=== PATIENT | male | born 1955 | race Caucasian/White ===

== ENCOUNTER → 2016-09-12 | Outpatient (CLI) | payer MEDICAID ==
--- NOTE | 2016-09-12 15:24 | RADIOLOGY REPORT (SQ) ---
EXAM DESCRIPTION: CHEST PA/LATERAL COMPLETED DATE/TIME: 09/12/2016 1:31 pm REASON FOR STUDY: COUGH R05 COUGH COMPARISON: 12/17/2015. NUMBER OF VIEWS: Two view. TECHNIQUE: Frontal and lateral radiographic views of the chest acquired. LIMITATIONS: None. FINDINGS: LUNGS AND PLEURA: Chronic pleural and parenchymal scarring. No opacities, masses or pneum othorax. No pleural effusion. Attenuated blood vessels and flattened iona-diaphragms. MEDIASTINUM AND HILAR STRUCTURES: No masses. No contour abnormalities. HEART AND VASCULAR STRUCTURES: Heart normal in size and contour. No evidence for failure. BONES: No acute findings. HARDWARE: None in the chest. OTHER: No other significant finding. IMPRESSION: COPD. CHRONIC SCARRING. NO ACUTE RADIOGRAPHIC FINDING IN THE CHEST. TECHNICAL DOCUMENTATION: JOB ID: [id number] [employer]- All Rights Reserved
== END ==
LOC: OD 13:11
PROVIDERS: ATTEND Physician Assistant
DX: R05 Cough (principal); J44.9 Chronic obstructive pulmonary disease, unspecified
CPT/HCPCS: 71020

== ENCOUNTER → 2016-10-12 | Outpatient (CLI) | payer MEDICAID ==
--- NOTE | 2016-10-12 12:01 | RADIOLOGY REPORT (SQ) ---
EXAM DESCRIPTION: CHEST PA/LATERAL COMPLETED DATE/TIME: 10/12/2016 11:37 am REASON FOR STUDY: PNEUMONIA, UNSPECIFIED ORGANISM COMPARISON: CT chest 07/15/2014, 06/05/2013, 01/13/2010, 05/21/2008, 03/28/2007, 11/09/2006 Chest films 12/17/2015, 09/12/2016 EXAM PARAMETERS: NUMBER OF VIEWS: two views TECHNIQUE: Digital Frontal and Lateral radiographic views of the chest acquired. RADIATION DOSE: NA LIMITATIONS: none FINDINGS: LUNGS AND PLEURA: Chronic bronchiectasis and scarring is present in the left superior segm ent lower lobe, similar compared to studies dating back to the CT chest in 2006. No acute infiltrates. No pleural effusion. No pneumothorax. MEDIASTINUM AND HILAR STRUCTURES: No masses or contour abnormalities. HEART AND VASCULAR STRUCTURES: Heart normal size. No evidence for failure. BONES: No acute findings. HARDWARE: None in the chest. OTHER: No other significant finding. IMPRESSION: Stable scarring and bronchiectasis in the superior segment left lower lobe compared to C T exams dating back to 2006 TECHNICAL DOCUMENTATION: JOB ID: [id number] [employer]- All Rights Reserved
== END ==
LOC: OD 11:19
PROVIDERS: ATTEND Physician Assistant
DX: J18.9 Pneumonia, unspecified organism (principal)
CPT/HCPCS: 71020

== ENCOUNTER 2016-10-21 19:12 | Inpatient (IN) | payer MEDICAID ==
[2016-10-21] MEDS ORDERED: NORMAL SALINE 1000 ML 1,000 ML IV PRN (20:17)
[2016-10-21 22:03] LABS: ABSOLUTE LYMPHOCYTES (AUTO) 1.8 10^3/uL (0.5-4.7); ABSOLUTE MONOCYTES (AUTO) 0.7 10^3/uL (0.1-1.4); ABSOLUTE NEUT (AUTO) 13.3 10^3/uL (1.7-8.2); BASOPHILS % (AUTO) 0.2 % (0-2); EOSINOPHILS % (AUTO) 0.1 % (0-6); HEMATOCRIT 33.8 % (37.9-51.0); HEMOGLOBIN 11.6 g/dL (13.5-17.0); LYMPHOCYTES % (AUTO) 11.6 % (13-45); MEAN CORPUSCULAR HEMOGLOBIN 31.5 pg (27.0-33.4); MEAN CORPUSCULAR HGB CONC 34.3 g/dL (32.0-36.0); MEAN CORPUSCULAR VOLUME 92 fl (80-97); MONOCYTES % (AUTO) 4.6 % (3-13); RED BLOOD COUNT 3.69 10^6/uL (4.35-5.55); RED CELL DISTRIBUTION WIDTH 13.7 % (11.5-14.0); SEGMENTED NEUTROPHILS % (AUTO) 83.5 % (42-78); WHITE BLOOD COUNT 15.9 10^3/uL (4.0-10.5)
[2016-10-21 22:22] LABS: ALANINE AMINOTRANSFERASE 33 U/L (21-72); ALKALINE PHOSPHATASE 94 U/L (38-126); ANION GAP 16 (5-19); ASPARTATE AMINO TRANSFERASE 34 U/L (17-59); BILIRUBIN,DIRECT 0.5 mg/dL (0.0-0.4); BILIRUBIN,TOTAL 0.8 mg/dL (0.2-1.3); BLOOD UREA NITROGEN 47 mg/dL (7-20); CARBON DIOXIDE 24 mmol/L (22-30); CHLORIDE 102 mmol/L (98-107); CREATINE KINASE 26 U/L (55-170); CREATININE RESULT 1.96 mg/dL (0.52-1.25); GLUCOSE 83 mg/dL (75-110); POTASSIUM 4.3 mmol/L (3.6-5.0); SODIUM 141.9 mmol/L (137-145)
[2016-10-21 22:37] LABS: CALCIUM 12.3 mg/dL (8.4-10.2)
[2016-10-21] MEDS ORDERED: NORMAL SALINE 1000 ML 1,000 ML IV ONE (22:39)
--- NOTE | 2016-10-21 22:43 | ER Document Report ---
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 Pollock, instructed him to go the emergency room because of elevated renal function and hypercalcemia. Patient says that he is not drinking much water over the past few days, but he is taking his normal amount of tube feeds through his G-tube. He denies fevers, nausea, vomiting, chest pain, shortness of breath, dysuria, hematuria, rash or headache. TRAVEL OUTSIDE OF THE [place] IN LAST 30 DAYS: No - Related Data Allergies/Adverse Reactions: Penicillins Allergy (Intermediate, Verified 10/21/16 19:21) Nausea and vomiting Sulfa (Sulfonamide Antibiotics) Allergy (Intermediate, Verified 10/21/16 19:21) upset stomach, vomiting Past Medical History - General Information source: Patient, Relative - Social History Smoking Status: Former Smoker Chew tobacco use (# tins/day): No Frequency of alcohol use: None Drug Abuse: None Family History: Reviewed & Not Pertinent - Past Medical History Cardiac Medical History: Reports: Hx Hypertension Denies: Hx Congestive Heart Failure Pulmonary Medical History: Reports: Hx Asthma, Hx Bronchitis, Hx COPD, Hx Pneumonia Endocrine Medical History: Denies: Hx Diabetes Mellitus Type 1, Hx Diabetes Mellitus Type 2 Renal/ Medical History: Denies: Hx Peritoneal Dialysis GI Medical History: Reports: Hx Cirrhosis - Alcoholic cirrhosis Musculoskeltal Medical History: Reports Hx Arthritis Past Surgical History: Reports: Hx Abdominal Surgery - peg tube placement - Immunizations Hx Diphtheria, Pertussis, Tetanus Vaccination: No - unsure Review of Systems - Review of Systems Notes: REVIEW OF SYSTEMS: CONSTITUTIONAL: -fevers, -chills EENT: -eye pain, -difficulty swallowing, -nasal congestion CARDIOVASCULAR:-chest pain, -syncope. RESPIRATORY: -cough, -SOB GASTROINTESTINAL: -abdominal pain, - nausea, -vomiting, -diarrhea GENITOURINARY: -dysuria, -hematuria MUSCULOSKELETAL: -back pain, -neck pain SKIN: -rash or skin lesions. HEMATOLOGIC: -easy bruising or bleeding. LYMPHATIC: -swollen, enlarged glands. NEUROLOGICAL: -altered mental status or loss of consciousness, -headache, - neurologic symptoms PSYCHIATRIC: -anxiety, -depression. ALL OTHER SYSTEMS REVIEWED AND NEGATIVE. Physical Exam - Vital signs Vitals: Temp Pulse Resp BP Pulse Ox 98.4 F 106 H 20 141/70 H 93 10/21/16 19:22 10/21/16 19:22 10/21/16 19:22 10/21/16 19:22 10/21/16 19:22 - Notes Notes: PHYSICAL EXAMINATION: GENERAL: Well-appearing, well-nourished and in no acute distress. HEAD: Atraumatic, normocephalic. EYES: Pupils equal round and reactive to light, extraocular movements intact, sclera anicteric, conjunctiva are normal. ENT: nares patent, oropharynx clear without exudates. Dry mucous membranes. NECK: Normal range of motion, supple without lymphadenopathy LUNGS: Breath sounds clear to auscultation bilaterally and equal. No wheezes rales or rhonchi. HEART: Regular rate and rhythm without murmurs ABDOMEN: Soft, nontender, normoactive bowel sounds. No guarding, no rebound. No masses appreciated. EXTREMITIES: Normal range of motion, no pitting or edema. No cyanosis. NEUROLOGICAL: Cranial nerves grossly intact. Normal speech, normal gait. Normal sensory and motor exams. PSYCH: Normal mood, normal affect. SKIN: Warm, Dry, normal turgor, no rashes or lesions noted. Course - Re-evaluation Re-evalutation: Patient with acute kidney injury and hypercalcemia. He also has a leukocytosis , but no fever and no signs of infection. Patient provided with IV fluids. 10/21/16 22:[address] Mckeon and will admit patient as inpatient to general medicine floor. - Vital Signs Vital signs: Temp Pulse Resp BP Pulse Ox 98.4 F 106 H 20 141/70 H 93 10/21/16 19:22 10/21/16 19:22 10/21/16 19:22 10/21/16 19:22 10/21/16 19:22 - Laboratory Result Diagrams: 10/21/16 21:33 10/21/16 21:33 Laboratory results interpreted by me: 10/21/16 10/21/16 21:33 21:33 WBC 15.9 H RBC 3.69 L Hgb 11.6 L Hct 33.8 L Seg Neutrophils % 83.5 H Lymphocytes % 11.6 L Absolute Neutrophils 13.3 H BUN 47 H Creatinine 1.96 H Est GFR ( Amer) 42 L Est GFR (Non-Af Amer) 35 L Calcium 12.3 H* Direct Bilirubin 0.5 H Creatine Kinase 26 L Discharge - Discharge Clinical Impression: JEAN (acute kidney injury), Hypercalcemia Leukocytosis Qualifiers: Leukocytosis type: unspecified Qualified Code(s): D72.829 - Elevated white blood cell count, unspecified Condition: Stable Disposition: ADMITTED INPATIENT Admitting Provider: [facility] Unit Admitted: Medical Floor
[2016-10-21 23:32] LABS: APPEARANCE,URINE CLEAR; BILIRUBIN,URINE NEGATIVE (NEGATIVE); GLUCOSE, URINE NEGATIVE (NEGATIVE); KETONES,URINE NEGATIVE (NEGATIVE); LEUKOCYTE ESTERASE,URINE NEGATIVE (NEGATIVE); NITRITE,URINE NEGATIVE (NEGATIVE); PROTEIN,URINE NEGATIVE (NEGATIVE); URINE SPECIFIC GRAVITY 1.009; UROBILINOGEN,URINE NEGATIVE mg/dL (<2.0)
[2016-10-22] MEDS ORDERED: NORMAL SALINE 1000 ML 1,000 ML IV PRN (04:15)
[2016-10-22 04:56] LABS: MAGNESIUM 1.8 mg/dL (1.6-2.3); PHOSPHORUS 2.9 mg/dL (2.5-4.5)
[2016-10-22 05:40] LABS: THYROID STIMULATING HORMONE 0.47 uIU/mL (0.47-4.68)
--- NOTE | 2016-10-22 06:48 | EKG REPORT ---
SEVERITY:- NORMAL ECG - SINUS RHYTHM : Confirmed by: Alvarado Rock MD 22-Oct-2016 06:47:55
--- NOTE | 2016-10-22 07:44 | RADIOLOGY REPORT (SQ) ---
EXAM DESCRIPTION: U/S RETROPERITON (RENAL/AORTA) COMPLETED DATE/TIME: 10/22/2016 7:16 am REASON FOR STUDY: ACUTE KIDNEY INJURY COMPARISON: CT abdomen and pelvis 12/18/2008. TECHNIQUE: Dynamic and static grayscale images acquired of the kidneys and bladder and recorded on P ACS. Additional selected color Doppler images recorded. LIMITATIONS: Overlying bowel gas and rib shadowing. FINDINGS: RIGHT KIDNEY: Measures 10.3 cm. Normal echogenicity. No no hydronephrosis. There is a 1.5 cm cyst at the interpolar region. LEFT KIDNEY: Suboptimal visualization due to overlying bowel gas and rib shadowing. Measures 11 cm. Normal echogenicity. No hydronephrosis. There is a 1.7 cm cyst at the interpolar region. BLADDER: There is outpouching at the urinary bladder. The right ureteral jet was visualized. IMPRESSION: No hydronephrosis. Outpouching at the urinary bladder, suggestive of a bladder diverticulum. Correlation with direct vi sualization recommended. TECHNICAL DOCUMENTATION: JOB ID: [id number]- All Rights Reserved
[2016-10-22 09:39] LABS: APPEARANCE,URINE CLEAR; BILIRUBIN,URINE NEGATIVE (NEGATIVE); GLUCOSE, URINE NEGATIVE (NEGATIVE); KETONES,URINE NEGATIVE (NEGATIVE); LEUKOCYTE ESTERASE,URINE NEGATIVE (NEGATIVE); NITRITE,URINE NEGATIVE (NEGATIVE); PROTEIN,URINE NEGATIVE (NEGATIVE); URINE SPECIFIC GRAVITY 1.005; UROBILINOGEN,URINE NEGATIVE mg/dL (<2.0)
[2016-10-22 09:55] LABS: URINE BARBITURATES SCREEN NEGATIVE; URINE METHADONE SCREEN NEGATIVE; URINE OPIATES LOW NEGATIVE; URINE PHENCYCLIDINE SCREEN NEGATIVE
[2016-10-22] MEDS ORDERED: ENOXAPARIN SODIUM INJ 40 MG/0.4 ML DISP.SYRIN SUBCUT SCH (10:00)
[2016-10-22] MEDS ORDERED: (PENDING PHARMACY ID) (Amitriptyline Hcl [Elavil 100 Mg Tablet] 100 MG) PO SCH (13:15)
[2016-10-22] MEDS ORDERED: OXYCODONE HCL IR 5 MG TABLET PO PRN (14:26)
--- NOTE | 2016-10-22 15:27 | PDOC H&P ---
History of Present Illness Admission Date/PCP: 10/22/16 04:16 PALOMO KNAPP MD History of Present Illness: LAWANDA RECIO is a 61 year old male, he has a history of ALS, he had outpatient blood work done by Dr. Knapp's office he was found to have hypercalcemia, he was referred to the emergency room from Dr. Knapp's office because of the hypercalcemia. In the emergency room he was evaluated the repeat blood work showed serum calcium of 12.3, serum creatinine 1.96. Patient has ALS with indwelling feeding tube is also dysphasic his speech is incomprehensible for the most part. Past Medical History Cardiac Medical History: Reports: Hypertension Pulmonary Medical History: Reports: Asthma, Bronchitis, Chronic Obstructive Pulmonary Disease (COPD), Pneumonia Neurological Medical History: Reports: Other - ALS, amyotrophic lateral sclerosis GI Medical History: Reports: Cirrhosis - Alcoholic cirrhosis Musculoskeltal Medical History: Reports: Arthritis Social History Smoking Status: Former Smoker - Advance Directive Resuscitation Status: Full Code Family History Family History: Reviewed & Not Pertinent Parental Family History Reviewed: Yes Children Family History Reviewed: Yes Sibling(s) Family History Reviewed.: Yes Medication/Allergy Home Medications: Albuterol Sulfate [Proair HFA] 2 inh IH Q6 12/10/12 Omeprazole [Prilosec 20 mg Capsule] 20 mg PO DAILY 12/10/12 Tiotropium [place] [Spiriva Handihaler 18 mcg/dose (30 Dose)] 1 cap IH DAILY Budesonide/Formoterol Fumarate [Symbicort HFA 160-4.5 mcg Inhaler 6 gm] 2 puff IH Q12 02/12/14 Levofloxacin [Levaquin 750 mg Tablet] 750 mg PO DAILY #10 tablet 09/03/14 Amitriptyline HCl [Elavil 100 mg Tablet] 100 mg PO QHS 10/22/16 Baclofen [Baclofen 10 mg Tablet] 5 mg PO Q12 10/22/16 Glycopyrrolate 1 mg PO Q8 10/22/16 Lisinopril 20 mg PO DAILY 10/22/16 Oxycodone HCl [Oxycodone HCl 10 MG Tablet] 10 mg PO Q6 PRN 10/22/16 Riluzole 50 mg PO Q12 10/22/16 Allergies/Adverse Reactions: Penicillins Allergy (Intermediate, Verified 10/21/16 19:21) Nausea and vomiting Sulfa (Sulfonamide Antibiotics) Allergy (Intermediate, Verified 10/21/16 19:21) upset stomach, vomiting Review of Systems ROS unobtainable: Other - Called to obtain review of system from this patient because of his BELT PICKER disease, he has expression dysphasia Physical Exam Vital Signs: Temp Pulse Resp BP Pulse Ox 97.3 F 61 15 135/51 H 98 10/22/16 11:40 10/22/16 14:00 10/22/16 11:40 10/22/16 11:40 10/22/16 11:40 Intake & Output 10/21/16 10/22/16 10/23/16 06:59 06:59 06:59 Intake Total 100 400 Output Total 0 700 Balance 100 -300 Weight 48 kg General appearance: PRESENT: mild distress Eye exam: PRESENT: PERRLA Respiratory exam: PRESENT: decreased breath sounds Cardiovascular exam: PRESENT: +S1, +S2 GI/Abdominal exam: PRESENT: firm Neurological exam: PRESENT: alert, other - He has a rigid tone of the musculature Results Laboratory Results: 10/22/16 10/22/16 10/22/16 04:35 04:35 08:55 Phosphorus 2.9 Magnesium 1.8 TSH 0.47 Free T4 0.95 Urine Color STRAW Urine Appearance CLEAR Urine pH 6.0 Ur Specific [place] 1.005 Urine Protein NEGATIVE Urine Glucose (UA) NEGATIVE Urine Ketones NEGATIVE Urine Blood NEGATIVE Urine Nitrite NEGATIVE Ur Leukocyte Esterase NEGATIVE Urine WBC (Auto) 2 Urine RBC (Auto) 1 10/22/16 10/22/16 10/22/16 04:35 04:35 10:49 Creatine Kinase 28 L 23 L CK-MB (CK-2) 1.40 10/22/16 10:49 Creatine Kinase CK-MB (CK-2) 1.70 Impressions: Renal Ultrasound 10/22/16 00:00 IMPRESSION: No hydronephrosis. Outpouching at the urinary bladder, suggestive of a bladder diverticulum. Correlation with direct visualization recommended. Assessment & Plan - Diagnosis (1) Hypercalcemia Is this a current diagnosis for this admission?: Yes Plan: He has hypercalcemia, serum PTH is ordered to determine if the hypercalcemia is PTH mediated. Will be treated with isotonic saline (2) Acute kidney injury Plan: I do not know the baseline serum creatinine for this patient but is seems that the acute kidney injury is most likely prerenal, a kidney ultrasound was done which showed normal echogenicity of both kidneys there was no hydronephrosis (3) Leukocytosis Qualifiers: Leukocytosis type: unspecified Qualified Code(s): D72.829 - Elevated white blood cell count, unspecified Is this a current diagnosis for this admission?: Yes Plan: He has increased white blood cell count there is no evidence of infection at this time will continue to monitor the white blood cell
[2016-10-22] MEDS ORDERED: ENOXAPARIN SODIUM INJ 30 MG/0.3 ML DISP.SYRIN SUBCUT ONE (15:30)
[2016-10-22] MEDS: ALBUTEROL SULFATE HFA (90 MCG/PUFF) 200 PUFF/8.5 GM MDI IH SCH ×2 (15:46→21:10)
[2016-10-22 16:42] LABS: ABSOLUTE LYMPHOCYTES (AUTO) 1.6 10^3/uL (0.5-4.7); ABSOLUTE MONOCYTES (AUTO) 0.4 10^3/uL (0.1-1.4); ABSOLUTE NEUT (AUTO) 6.6 10^3/uL (1.7-8.2); BASOPHILS % (AUTO) 0.4 % (0-2); EOSINOPHILS % (AUTO) 0.2 % (0-6); HEMATOCRIT 28.8 % (37.9-51.0); HEMOGLOBIN 9.7 g/dL (13.5-17.0); HGB HCT DIFFERENCE 0.3; LYMPHOCYTES % (AUTO) 18.8 % (13-45); MEAN CORPUSCULAR HEMOGLOBIN 30.8 pg (27.0-33.4); MEAN CORPUSCULAR HGB CONC 33.6 g/dL (32.0-36.0); MEAN CORPUSCULAR VOLUME 92 fl (80-97); MONOCYTES % (AUTO) 4.8 % (3-13); RED BLOOD COUNT 3.15 10^6/uL (4.35-5.55); RED CELL DISTRIBUTION WIDTH 13.6 % (11.5-14.0); SEGMENTED NEUTROPHILS % (AUTO) 75.8 % (42-78); WHITE BLOOD COUNT 8.7 10^3/uL (4.0-10.5)
[2016-10-22 17:08] LABS: ALANINE AMINOTRANSFERASE 30 U/L (21-72); ALBUMIN 3.2 g/dL (3.5-5.0); ALKALINE PHOSPHATASE 77 U/L (38-126); ANION GAP 12 (5-19); ASPARTATE AMINO TRANSFERASE 26 U/L (17-59); BILIRUBIN,DIRECT 0.6 mg/dL (0.0-0.4); BILIRUBIN,TOTAL 0.9 mg/dL (0.2-1.3); BLOOD UREA NITROGEN 36 mg/dL (7-20); CALCIUM 10.5 mg/dL (8.4-10.2); CARBON DIOXIDE 23 mmol/L (22-30); CHLORIDE 107 mmol/L (98-107); CREATININE RESULT 1.54 mg/dL (0.52-1.25); GLUCOSE 70 mg/dL (75-110); POTASSIUM 3.8 mmol/L (3.6-5.0); SODIUM 141.7 mmol/L (137-145); TOTAL PROTEIN 6.6 g/dL (6.3-8.2)
[2016-10-22] MEDS ORDERED: BACLOFEN 10 MG TABLET PO SCH (18:00)
[2016-10-22] MEDS ORDERED: GLYCOPYRROLATE 1 MG TABLET PO SCH (18:00)
[2016-10-22] MEDS ORDERED: AMITRIPTYLINE HCL 50 MG TABLET PO SCH (22:00)
[2016-10-22] MEDS ORDERED: RILUZOLE 50 MG PEG SCH (22:00)
[2016-10-22] MEDS: BUDESONIDE/FORMOTEROL 160-4.5 MCG 60 PUFF/6 GM MDI IH SCH (22:04)
[2016-10-23] MEDS: ALBUTEROL SULFATE HFA (90 MCG/PUFF) 200 PUFF/8.5 GM MDI IH SCH ×4 (03:39→22:12)
[2016-10-23 05:00] LABS: ABSOLUTE EOSINOPHILS # (AUTO) 0.1 10^3/uL (0.0-0.6); ABSOLUTE LYMPHOCYTES (AUTO) 1.8 10^3/uL (0.5-4.7); ABSOLUTE MONOCYTES (AUTO) 0.5 10^3/uL (0.1-1.4); ABSOLUTE NEUT (AUTO) 4.6 10^3/uL (1.7-8.2); BASOPHILS % (AUTO) 0.4 % (0-2); EOSINOPHILS % (AUTO) 0.9 % (0-6); HEMATOCRIT 26.7 % (37.9-51.0); HEMOGLOBIN 9.2 g/dL (13.5-17.0); HGB HCT DIFFERENCE 0.9; MEAN CORPUSCULAR HEMOGLOBIN 31.7 pg (27.0-33.4); MEAN CORPUSCULAR HGB CONC 34.5 g/dL (32.0-36.0); MEAN CORPUSCULAR VOLUME 92 fl (80-97); MONOCYTES % (AUTO) 6.8 % (3-13); RED BLOOD COUNT 2.91 10^6/uL (4.35-5.55); RED CELL DISTRIBUTION WIDTH 13.8 % (11.5-14.0); SEGMENTED NEUTROPHILS % (AUTO) 65.9 % (42-78); WHITE BLOOD COUNT 6.9 10^3/uL (4.0-10.5)
[2016-10-23 05:12] LABS: ALANINE AMINOTRANSFERASE 23 U/L (21-72); ALBUMIN 2.7 g/dL (3.5-5.0); ALKALINE PHOSPHATASE 68 U/L (38-126); ANION GAP 9 (5-19); ASPARTATE AMINO TRANSFERASE 23 U/L (17-59); BILIRUBIN,DIRECT 0.4 mg/dL (0.0-0.4); BILIRUBIN,TOTAL 0.5 mg/dL (0.2-1.3); BLOOD UREA NITROGEN 28 mg/dL (7-20); CALCIUM 10.5 mg/dL (8.4-10.2); CARBON DIOXIDE 26 mmol/L (22-30); CHLORIDE 108 mmol/L (98-107); CREATININE RESULT 1.45 mg/dL (0.52-1.25); GLUCOSE 138 mg/dL (75-110); POTASSIUM 3.2 mmol/L (3.6-5.0); SODIUM 142.7 mmol/L (137-145); TOTAL PROTEIN 5.7 g/dL (6.3-8.2)
[2016-10-23] MEDS ORDERED: LANSOPRAZOLE 15 MG TAB.RAP.DR PO ONE (06:45)
[2016-10-23] MEDS ORDERED: POTASSIUM CHLORIDE 10 MEQ TABLET.SA PO ONE (07:00)
[2016-10-23] MEDS ORDERED: POTASSIUM CHLORIDE 10 MEQ TABLET.SA PO SCH (07:00)
[2016-10-23] MEDS: TIOTROPIUM BROMIDE DPI 5 CAP/KIT (18 MCG/CAP) IH SCH (09:26)
[2016-10-23] MEDS: POTASSIUM CHLORIDE 20 MEQ/15 ML UDCUP PEG SCH (09:26)
[2016-10-23] MEDS: ENOXAPARIN SODIUM INJ 30 MG/0.3 ML DISP.SYRIN SUBCUT SCH (09:27)
[2016-10-23] MEDS: BUDESONIDE/FORMOTEROL 160-4.5 MCG 60 PUFF/6 GM MDI IH SCH ×2 (09:27→22:12)
[2016-10-23] MEDS ORDERED: (PENDING PHARMACY ID) (Omeprazole [Prilosec 20 Mg Capsule] 20 MG) PO SCH (10:00)
[2016-10-23] MEDS ORDERED: LISINOPRIL 10 MG TABLET PEG SCH (10:00)
[2016-10-23] MEDS ORDERED: LISINOPRIL 10 MG TABLET PO SCH (10:00)
[2016-10-23] MEDS ORDERED: (PENDING PHARMACY ID) (Lisinopril [Lisinopril] 20 MG) PO SCH (10:00)
[2016-10-23] MEDS: BACLOFEN 10 MG TABLET PEG SCH ×2 (11:54→17:08)
[2016-10-23] MEDS: GLYCOPYRROLATE 1 MG TABLET PEG SCH ×3 (11:54→17:08)
--- NOTE | 2016-10-23 15:41 | PDOC PROGRESS REPORT ---
Subjective Progress Note for:: 10/23/16 Subjective:: Patient was admitted yesterday because of severe hypercalcemia, the serum calcium from today's lab is 10.5 there was associated acute kidney injury. Presently on IV isotonic infusion the kidney function is improving. He has history of ALS on tube feeds. The acute kidney injury is most likely from inadequate hydration with volume contraction. The PTH level that was requested is pending this will help differentiate if the hypercalcemia is PTH mediated or not. Physical Exam Vital Signs: Temp Pulse Resp BP Pulse Ox 97.5 F 50 L 17 150/54 H 100 10/23/16 11:24 10/23/16 11:24 10/23/16 11:24 10/23/16 11:24 10/23/16 11:24 Intake & Output 10/22/16 10/23/16 10/24/16 06:59 06:59 06:59 Intake Total 100 4200 300 Output Total 0 1100 400 Balance 100 3100 -100 Weight 48 kg 48 kg General appearance: PRESENT: no acute distress Eye exam: PRESENT: PERRLA Respiratory exam: PRESENT: clear to auscultation sandip Cardiovascular exam: PRESENT: +S1, +S2 GI/Abdominal exam: PRESENT: soft Neurological exam: PRESENT: alert Results Laboratory Results: 10/23/16 03:41 10/23/16 03:41 10/22/16 10/22/16 10/23/16 16:10 16:10 03:41 WBC 8.7 6.9 RBC 3.15 L 2.91 L Hgb 9.7 L 9.2 L Hct 28.8 L 26.7 L MCV 92 92 MCH 30.8 31.7 MCHC 33.6 34.5 RDW 13.6 13.8 Plt Count 194 175 Seg Neutrophils % 75.8 65.9 Lymphocytes % 18.8 26.0 Monocytes % 4.8 6.8 Eosinophils % 0.2 0.9 Basophils % 0.4 0.4 Absolute Neutrophils 6.6 4.6 Absolute Lymphocytes 1.6 1.8 Absolute Monocytes 0.4 0.5 Absolute Eosinophils 0.0 0.1 Absolute Basophils 0.0 0.0 Sodium 141.7 Potassium 3.8 Chloride 107 Carbon Dioxide 23 Anion Gap 12 BUN 36 H Creatinine 1.54 H Est GFR ( Amer) 56 L Est GFR (Non-Af Amer) 46 L Glucose 70 L Calcium 10.5 H Total Bilirubin 0.9 AST 26 ALT 30 Alkaline Phosphatase 77 Total Protein 6.6 Albumin 3.2 L 10/23/16 03:41 WBC RBC Hgb Hct MCV MCH MCHC RDW Plt Count Seg Neutrophils % Lymphocytes % Monocytes % Eosinophils % Basophils % Absolute Neutrophils Absolute Lymphocytes Absolute Monocytes Absolute Eosinophils Absolute Basophils Sodium 142.7 Potassium 3.2 L Chloride 108 H Carbon Dioxide 26 Anion Gap 9 BUN 28 H Creatinine 1.45 H Est GFR ( Amer) > 60 Est GFR (Non-Af Amer) 50 L Glucose 138 H Calcium 10.5 H Total Bilirubin 0.5 AST 23 ALT 23 Alkaline Phosphatase 68 Total Protein 5.7 L Albumin 2.7 L 10/22/16 10/22/16 10/22/16 04:35 04:35 10:49 Creatine Kinase 28 L 23 L CK-MB (CK-2) 1.40 10/22/16 10/22/16 10/22/16 10:49 16:10 16:10 Creatine Kinase 30 L CK-MB (CK-2) 1.70 1.49 Impressions: Renal Ultrasound 10/22/16 00:00 IMPRESSION: No hydronephrosis. Outpouching at the urinary bladder, suggestive of a bladder diverticulum. Correlation with direct visualization recommended. Assessment & Plan - Diagnosis (1) Hypercalcemia Is this a current diagnosis for this admission?: Yes Plan: The calcium level is down to 10.5, we will continue present IV hydration (2) Acute kidney injury Plan: Acute kidney injury is improving suggesting that this is prerenal other than intrinsic kidney disease (3) Leukocytosis Qualifiers: Leukocytosis type: unspecified Qualified Code(s): D72.829 - Elevated white blood cell count, unspecified Is this a current diagnosis for this admission?: Yes Plan: The leukocytosis is resolved with hydration suggesting that this is probably due to dehydration and stress of dehydration
[2016-10-23] MEDS: LEVOFLOXACIN 750 MG TABLET PEG SCH (17:09)
[2016-10-23] MEDS ORDERED: LEVOFLOXACIN 750 MG TABLET PO SCH (18:00)
[2016-10-23] MEDS: AMITRIPTYLINE HCL 50 MG TABLET PEG SCH (22:11)
[2016-10-24] MEDS: ALBUTEROL SULFATE HFA (90 MCG/PUFF) 200 PUFF/8.5 GM MDI IH SCH ×4 (02:58→23:23)
[2016-10-24 05:06] LABS: ABSOLUTE EOSINOPHILS # (AUTO) 0.1 10^3/uL (0.0-0.6); ABSOLUTE LYMPHOCYTES (AUTO) 1.6 10^3/uL (0.5-4.7); ABSOLUTE MONOCYTES (AUTO) 0.5 10^3/uL (0.1-1.4); ABSOLUTE NEUT (AUTO) 5.4 10^3/uL (1.7-8.2); BASOPHILS % (AUTO) 0.2 % (0-2); EOSINOPHILS % (AUTO) 1.1 % (0-6); HEMATOCRIT 26.8 % (37.9-51.0); HEMOGLOBIN 9.1 g/dL (13.5-17.0); HGB HCT DIFFERENCE 0.5; LYMPHOCYTES % (AUTO) 20.7 % (13-45); MEAN CORPUSCULAR HEMOGLOBIN 31.2 pg (27.0-33.4); MEAN CORPUSCULAR VOLUME 92 fl (80-97); MONOCYTES % (AUTO) 6.9 % (3-13); RED BLOOD COUNT 2.92 10^6/uL (4.35-5.55); RED CELL DISTRIBUTION WIDTH 13.9 % (11.5-14.0); SEGMENTED NEUTROPHILS % (AUTO) 71.1 % (42-78); WHITE BLOOD COUNT 7.6 10^3/uL (4.0-10.5)
[2016-10-24] MEDS: LANSOPRAZOLE 15 MG TAB.RAP.DR PEG SCH (05:44)
[2016-10-24] MEDS ORDERED: LANSOPRAZOLE 15 MG TAB.RAP.DR PO SCH (06:00)
[2016-10-24 07:52] LABS: ANION GAP 9 (5-19); BLOOD UREA NITROGEN 16 mg/dL (7-20); CALCIUM 10.2 mg/dL (8.4-10.2); CARBON DIOXIDE 30 mmol/L (22-30); CHLORIDE 104 mmol/L (98-107); CREATININE RESULT 1.13 mg/dL (0.52-1.25); GLUCOSE 110 mg/dL (75-110); POTASSIUM 3.3 mmol/L (3.6-5.0); SODIUM 143.3 mmol/L (137-145)
[2016-10-24] MEDS: ENOXAPARIN SODIUM INJ 30 MG/0.3 ML DISP.SYRIN SUBCUT SCH (09:14)
[2016-10-24] MEDS: TIOTROPIUM BROMIDE DPI 5 CAP/KIT (18 MCG/CAP) IH SCH (09:14)
[2016-10-24] MEDS: POTASSIUM CHLORIDE 20 MEQ/15 ML UDCUP PEG SCH (09:14)
[2016-10-24] MEDS: BUDESONIDE/FORMOTEROL 160-4.5 MCG 60 PUFF/6 GM MDI IH SCH ×2 (09:14→23:24)
[2016-10-24] MEDS: GLYCOPYRROLATE 1 MG TABLET PEG SCH ×3 (09:14→17:49)
[2016-10-24] MEDS: BACLOFEN 10 MG TABLET PEG SCH ×2 (09:14→17:49)
[2016-10-24] MEDS ORDERED: NORMAL SALINE 1000 ML 1,000 ML IV PRN (09:42)
[2016-10-24] MEDS ORDERED: POTASSIUM CHLORIDE 20 MEQ/15 ML UDCUP PO SCH (10:00)
[2016-10-24] MEDS: OXYCODONE HCL IR 5 MG TABLET PEG PRN ×2 (10:25→17:49)
--- NOTE | 2016-10-24 11:08 | PDOC PROGRESS REPORT ---
Subjective Progress Note for:: 10/24/16 Subjective:: Patient is currently doing better. Patient was admitted because of the acute renal failure and hypercalcemia Patient also on tube feeding and history of ALS Since starting the IV fluid Patient's PTH is very low with suggest the patient have secondary hyperparathyroidism's is to rule out any underlying malignancy Physical Exam Vital Signs: Temp Pulse Resp BP Pulse Ox 98.9 F 55 L 17 155/61 H 99 10/24/16 08:07 10/24/16 08:07 10/24/16 08:07 10/24/16 08:07 10/24/16 08:07 Intake & Output 10/23/16 10/24/16 10/25/16 06:59 06:59 06:59 Intake Total 4200 3957 Output Total 1100 1900 Balance 3100 2057 Weight 48 kg 50.1 kg General appearance: PRESENT: no acute distress Head exam: PRESENT: atraumatic, normocephalic Eye exam: PRESENT: conjunctiva pink, EOMI, PERRLA. ABSENT: scleral icterus Ear exam: PRESENT: normal external ear exam Mouth exam: PRESENT: moist, tongue midline Neck exam: PRESENT: full ROM. ABSENT: carotid bruit, JVD, lymphadenopathy, thyromegaly Respiratory exam: PRESENT: clear to auscultation sandip Cardiovascular exam: PRESENT: RRR. ABSENT: diastolic murmur, rubs, systolic murmur Pulses: PRESENT: normal dorsalis pedis pul, +2 pedal pulses bilateral Vascular exam: PRESENT: normal capillary refill GI/Abdominal exam: PRESENT: normal bowel sounds, soft. ABSENT: distended, guarding, mass, organolmegaly, rebound, tenderness Additonal comments: peg tube is intact Rectal exam: PRESENT: deferred Neurological exam: PRESENT: alert, awake, oriented to person, oriented to place , oriented to time, oriented to situation, CN II-XII grossly intact. ABSENT: motor sensory deficit Psychiatric exam: PRESENT: appropriate affect, normal mood. ABSENT: homicidal ideation, suicidal ideation Skin exam: PRESENT: dry, intact, warm. ABSENT: cyanosis, rash Results Laboratory Results: 10/24/16 04:07 10/24/16 07:02 10/22/16 10/24/16 10/24/16 04:35 04:07 07:02 WBC 7.6 RBC 2.92 L Hgb 9.1 L Hct 26.8 L MCV 92 MCH 31.2 MCHC 34.0 RDW 13.9 Plt Count 195 Seg Neutrophils % 71.1 Lymphocytes % 20.7 Monocytes % 6.9 Eosinophils % 1.1 Basophils % 0.2 Absolute Neutrophils 5.4 Absolute Lymphocytes 1.6 Absolute Monocytes 0.5 Absolute Eosinophils 0.1 Absolute Basophils 0.0 Sodium 143.3 Potassium 3.3 L Chloride 104 Carbon Dioxide 30 Anion Gap 9 BUN 16 Creatinine 1.13 Est GFR ( Amer) > 60 Est GFR (Non-Af Amer) > 60 Glucose 110 Calcium 10.2 PTH Intact 10 L 10/22/16 10/22/16 10/22/16 04:35 04:35 10:49 Creatine Kinase 28 L 23 L CK-MB (CK-2) 1.40 10/22/16 10/22/16 10/22/16 10:49 16:10 16:10 Creatine Kinase 30 L CK-MB (CK-2) 1.70 1.49 Impressions: Renal Ultrasound 10/22/16 00:00 IMPRESSION: No hydronephrosis. Outpouching at the urinary bladder, suggestive of a bladder diverticulum. Correlation with direct visualization recommended. Assessment & Plan - Diagnosis (1) JEAN (acute kidney injury) Is this a current diagnosis for this admission?: Yes Plan: After IV fluid currently all resolved (2) Hypercalcemia Is this a current diagnosis for this admission?: Yes Plan: Patient's PTH is very low will rule out the other etiology we ordered the multiple myeloma workup ordered the CT of the abdomen pelvis and chest (3) Leukocytosis Qualifiers: Leukocytosis type: unspecified Qualified Code(s): D72.829 - Elevated white blood cell count, unspecified Is this a current diagnosis for this admission?: Yes Plan: Most likely underlying aspirations pneumonia will get the modified barium swallow for speech therapy evaluations and continues to [place] (4) ALS (amyotrophic lateral sclerosis) Is this a current diagnosis for this admission?: Yes Plan: Patient is currently see at [facility] (5) Failure to thrive Qualifiers: Failure to thrive age range: in adult Qualified Code(s): R62.7 - Adult failure to thrive Is this a current diagnosis for this admission?: Yes Plan: Consult dietary is to further adjustments for the tube feeding - Time Time Spent with patient: 15-24 minutes Medications reviewed and adjusted accordingly: Yes Anticipated discharge: Home Within: Other - Inpatient Certification Medical Necessity: Need For IV Fluids Post Hospital Care: D/C [employer] Documentation - Plan Summary Plan Summary: Continues current medications
--- NOTE | 2016-10-24 13:05 | RADIOLOGY REPORT (SQ) ---
EXAM DESCRIPTION: CT CHEST WITHOUT COMPLETED DATE/TIME: 10/24/2016 12:34 pm REASON FOR STUDY: Cough/ALS COMPARISON: 07/15/2014 TECHNIQUE: CT scan performed of the chest without intravenous contrast. Images reviewed with lung, soft tissue and bone windows. Reconstructed coronal and sagittal MPR images reviewed. All images st ored on PACS. All CT scanners at this facility use dose modulation, iterative reconstruction, and/or weight based d osing when appropriate to reduce radiation dose to as low as reasonably achievable (ALARA). [facility]: Dose Right [facility]: CareDose [facility]: Dose Right [facility]: Teradose 4D [facility]: Smart AxialMED RADIATION DOSE: Up-to-date CT equipment and radiation dose reduction techniques were employed. CTDIv ol: 4.5 - 4.7 mGy. DLP: 411 mGy-cm. mGy. LIMITATIONS: No technical limitations. FINDINGS: LUNGS AND PLEURA: Pleural/parenchymal scarring is seen in the apices and in the left base. There is subsegmental atelectasis in the left lower lobe. These changes are stable. There is mild centrilobular emphysematous change. There is opacification in the left upper lobe. HILAR AND MEDIASTINAL STRUCTURES: No identified masses or abnormal nodes. No obvious aneurysm. HEART AND VASCULAR STRUCTURES: No aneurysm. No pericardial effusion. UPPER ABDOMEN: No significant findings. Limited exam. THYROID AND OTHER SOFT TISSUES: No masses. No adenopathy. BONES: No significant finding. HARDWARE: None in the chest. OTHER: No other significant findings. IMPRESSION: 1. Left upper lobe pneumonia. 2. Pleural/parenchymal scarring in the lung apices and in the left lower lobe. Subsegmental atelect asis in the left lower lobe. These findings were stable. TECHNICAL DOCUMENTATION: JOB ID: [id number] Quality ID # [id number]: Final reports with documentation of one or more dose reduction techniques (e.g., Au tomated exposure control, adjustment of the mA and/or kV according to patient size, use of iterative reconstruction technique) 2010 [employer]- All Rights Reserved
--- NOTE | 2016-10-24 13:15 | RADIOLOGY REPORT (SQ) ---
EXAM DESCRIPTION: CT ABD/PELVIS NO ORAL OR IV COMPLETED DATE/TIME: 10/24/2016 12:34 pm REASON FOR STUDY: Cough/ALS/wt loss COMPARISON: None. TECHNIQUE: CT scan of the abdomen and pelvis performed without intravenous or oral contrast. Images reviewed with lung, soft tissue, and bone windows. Reconstructed coronal and sagittal MPR images revi ewed. All images stored on PACS. All CT scanners at this facility use dose modulation, iterative reconstruction, and/or weight based d osing when appropriate to reduce radiation dose to as low as reasonably achievable (ALARA). [facility]: Dose Right [facility]: CareDose [facility]: Dose Right [facility]: Teradose 4D [facility]: TabSys RADIATION DOSE: 411.3mGy. LIMITATIONS: None. FINDINGS: LOWER CHEST: See separate report of the CT of the chest. NON-CONTRASTED LIVER, SPLEEN, ADRENALS: Evaluation limited by lack of IV contrast. No identified sign ificant masses. PANCREAS: No masses. No peripancreatic inflammatory changes. GALLBLADDER: No identified stones by CT criteria. No inflammatory changes to suggest cholecystitis. RIGHT KIDNEY AND URETER: No suspicious masses. Assessment limited by lack of IV contrast. There are what appear to be scattered vascular calcifications. No ureteral stone or obstruction is seen. No hydronephrosis or hydroureter. LEFT KIDNEY AND URETER: No suspicious masses. Assessment limited by lack of IV contrast. Couple of vascular calcifications are present. There is no ureteral stone or obstruction. No hydronephrosis or hydroureter. AORTA AND RETROPERITONEUM: No aneurysm. Extensive atherosclerosis. There is atherosclerosis there i s prominent at the origin of the superior mesenteric artery and there is slightly less prominent athe rosclerosis at the origins of the renal arteries. BOWEL AND PERITONEAL CAVITY: No obvious masses or inflammatory changes. No free fluid. APPENDIX: Not identified. PELVIS, BLADDER, AND ABDOMINAL WALL:Urinary bladder is normal. Prostate gland and seminal vesicles a re normal. There is no free fluid. BONES: No significant findings. OTHER: No other significant finding. IMPRESSION: 1. Atherosclerosis including the aorta and renal arteries and the superior mesenteric a rtery in particular. 2. No abdominal or pelvic mass or other abnormality is appreciated. COMMENT: Quality ID # [id number]: Final reports with documentation of one or more dose reduction techniques (e.g., Automated exposure control, adjustment of the mA and/or kV according to patient size, use of iterative reconstruction technique) TECHNICAL DOCUMENTATION: JOB ID: [id number] [employer] [employer]- All Rights Reserved
[2016-10-24] MEDS: AMITRIPTYLINE HCL 50 MG TABLET PEG SCH (23:24)
[2016-10-25] MEDS: ALBUTEROL SULFATE HFA (90 MCG/PUFF) 200 PUFF/8.5 GM MDI IH SCH ×4 (04:11→20:36)
[2016-10-25 04:37] LABS: IMMUNOGLOBULIN A 684 mg/dL (90-386); IMMUNOGLOBULIN G 1355 mg/dL (700-1600)
[2016-10-25] MEDS: LANSOPRAZOLE 15 MG TAB.RAP.DR PEG SCH (06:08)
[2016-10-25 07:06] LABS: IMMUNOGLOBULIN M 114 mg/dL (20-172)
[2016-10-25 07:15] LABS: ABSOLUTE EOSINOPHILS # (AUTO) 0.1 10^3/uL (0.0-0.6); ABSOLUTE LYMPHOCYTES (AUTO) 1.9 10^3/uL (0.5-4.7); ABSOLUTE MONOCYTES (AUTO) 0.7 10^3/uL (0.1-1.4); BASOPHILS % (AUTO) 0.3 % (0-2); EOSINOPHILS % (AUTO) 1.9 % (0-6); HEMATOCRIT 26.5 % (37.9-51.0); HEMOGLOBIN 9.3 g/dL (13.5-17.0); HGB HCT DIFFERENCE 1.4; LYMPHOCYTES % (AUTO) 27.9 % (13-45); MEAN CORPUSCULAR HGB CONC 35.2 g/dL (32.0-36.0); MEAN CORPUSCULAR VOLUME 91 fl (80-97); MONOCYTES % (AUTO) 10.4 % (3-13); RED BLOOD COUNT 2.92 10^6/uL (4.35-5.55); RED CELL DISTRIBUTION WIDTH 13.9 % (11.5-14.0); SEGMENTED NEUTROPHILS % (AUTO) 59.5 % (42-78); WHITE BLOOD COUNT 6.7 10^3/uL (4.0-10.5)
--- NOTE | 2016-10-25 09:09 | PDOC PROGRESS REPORT ---
Subjective Progress Note for:: 10/25/16 Subjective:: Patient is currently doing fair. Patient's CT of the chest shows the left lower lobe pneumonia and CT abdomen and pelvis was all stable Otherwise patient's denied any other symptoms Physical Exam Vital Signs: Temp Pulse Resp BP Pulse Ox 98.1 F 65 17 151/65 H 100 10/25/16 07:19 10/25/16 07:19 10/25/16 07:19 10/25/16 07:19 10/25/16 07:19 Intake & Output 10/24/16 10/25/16 10/26/16 06:59 06:59 06:59 Intake Total 3957 2966 65 Output Total 1900 2150 Balance 2057 816 65 Weight 50.1 kg 50.1 kg General appearance: PRESENT: no acute distress, well-developed, well-nourished Head exam: PRESENT: atraumatic, normocephalic Eye exam: PRESENT: conjunctiva pink, EOMI, PERRLA. ABSENT: scleral icterus Ear exam: PRESENT: normal external ear exam Mouth exam: PRESENT: moist, tongue midline Neck exam: PRESENT: full ROM. ABSENT: carotid bruit, JVD, lymphadenopathy, thyromegaly Respiratory exam: PRESENT: clear to auscultation sandip Cardiovascular exam: PRESENT: RRR. ABSENT: diastolic murmur, rubs, systolic murmur Pulses: PRESENT: normal dorsalis pedis pul, +2 pedal pulses bilateral Vascular exam: PRESENT: normal capillary refill GI/Abdominal exam: PRESENT: normal bowel sounds, soft. ABSENT: distended, guarding, mass, organolmegaly, rebound, tenderness Rectal exam: PRESENT: deferred Neurological exam: PRESENT: alert, awake, oriented to person, oriented to place , oriented to time, oriented to situation, CN II-XII grossly intact. ABSENT: motor sensory deficit Psychiatric exam: PRESENT: appropriate affect, normal mood. ABSENT: homicidal ideation, suicidal ideation Skin exam: PRESENT: dry, intact, warm. ABSENT: cyanosis, rash Results Laboratory Results: 10/25/16 06:37 10/24/16 07:02 10/25/16 06:37 WBC 6.7 RBC 2.92 L Hgb 9.3 L Hct 26.5 L MCV 91 MCH 32.0 MCHC 35.2 RDW 13.9 Plt Count 196 Seg Neutrophils % 59.5 Lymphocytes % 27.9 Monocytes % 10.4 Eosinophils % 1.9 Basophils % 0.3 Absolute Neutrophils 4.0 Absolute Lymphocytes 1.9 Absolute Monocytes 0.7 Absolute Eosinophils 0.1 Absolute Basophils 0.0 10/22/16 10/22/16 10/22/16 04:35 04:35 10:49 Creatine Kinase 28 L 23 L CK-MB (CK-2) 1.40 10/22/16 10/22/16 10/22/16 10:49 16:10 16:10 Creatine Kinase 30 L CK-MB (CK-2) 1.70 1.49 Impressions: Renal Ultrasound 10/22/16 00:00 IMPRESSION: No hydronephrosis. Outpouching at the urinary bladder, suggestive of a bladder diverticulum. Correlation with direct visualization recommended. Abdomen/Pelvis CT 10/24/16 00:00 IMPRESSION: 1. Atherosclerosis including the aorta and renal arteries and the superior mesenteric artery in particular. 2. No abdominal or pelvic mass or other abnormality is appreciated. Chest CT 10/24/16 00:00 IMPRESSION: 1. Left upper lobe pneumonia. 2. Pleural/parenchymal scarring in the lung apices and in the left lower lobe. Subsegmental atelectasis in the left lower lobe. These findings were stable. Assessment & Plan - Diagnosis (1) JEAN (acute kidney injury) Is this a current diagnosis for this admission?: Yes Plan: Currently all resolved (2) Hypercalcemia Is this a current diagnosis for this admission?: Yes Plan: Currently all resolved with waiting for the other tastings (3) Leukocytosis Qualifiers: Leukocytosis type: unspecified Qualified Code(s): D72.829 - Elevated white blood cell count, unspecified Is this a current diagnosis for this admission?: Yes Plan: From the pneumonia (4) ALS (amyotrophic lateral sclerosis) Is this a current diagnosis for this admission?: Yes Plan: Patient is currently see at [place] [facility] (5) Failure to thrive Qualifiers: Failure to thrive age range: in adult Qualified Code(s): R62.7 - Adult failure to thrive Is this a current diagnosis for this admission?: Yes Plan: Consult dietary is to further adjustments for the tube feeding (6) Pneumonia Qualifiers: Pneumonia type: aspiration pneumonia Laterality: left Is this a current diagnosis for this admission?: Yes Plan: Continues to LevaquinPatient scheduled for modified barium swallow today - Time Time Spent with patient: 15-24 minutes Medications reviewed and adjusted accordingly: Yes Anticipated discharge: Home Within: within 24 hours - Inpatient Certification Medical Necessity: Need Close Monitoring Due to Risk of Patient Decompensation Post Hospital Care: D/C Dairy Farm Manager Documentation - Plan Summary Plan Summary: Discussed with the patient and the caregiver about the patient's current conditionsWe will wait for the dietary consult. Just the tube feeding
[2016-10-25] MEDS: OXYCODONE HCL IR 5 MG TABLET PEG PRN ×2 (09:39→17:58)
[2016-10-25] MEDS: POTASSIUM CHLORIDE 20 MEQ/15 ML UDCUP PEG SCH (09:40)
[2016-10-25] MEDS: GLYCOPYRROLATE 1 MG TABLET PEG SCH ×3 (09:40→17:58)
[2016-10-25] MEDS: BUDESONIDE/FORMOTEROL 160-4.5 MCG 60 PUFF/6 GM MDI IH SCH ×2 (09:41→23:22)
[2016-10-25] MEDS: TIOTROPIUM BROMIDE DPI 5 CAP/KIT (18 MCG/CAP) IH SCH (09:41)
[2016-10-25] MEDS: ENOXAPARIN SODIUM INJ 30 MG/0.3 ML DISP.SYRIN SUBCUT SCH (09:42)
[2016-10-25] MEDS: BACLOFEN 10 MG TABLET PEG SCH ×2 (09:52→17:58)
--- NOTE | 2016-10-25 14:03 | ST Inp Modified Barium Swallow ---
Medical Diagnosis - Medical Diagnoses Medical Diagnosis Description & ICD-10 Code(s): Dysphagia, R13.10 ST [place] [facility] [place] General Date: 10/25/16 - History History Obtained From: Other - EMR -: Medical Medications: Medications Reviewed Allergies: Refer to medical record - Subjective Current Nutritional Means: PEG, PO - liquids only Current Symptoms: Pneumonia Pain: 0/5 - Objective Assessment: Upright, Left Lateral - Food Trials Food Trials Used: Thin liquids, Honey-thickened liquids, Pureed The Patient: fed by ST - Assessment Labial Function: Impaired - Poor ability to seal lips around spoon Dentition: Dentures-Upper Velo-Pharyngeal Function: Unremarkable Laryngeal Function: Weak Cough - Pharyngeal Stage Initiation of Pharyngeal Stage: Delayed Reflex Delay Time (seconds): 3 Reduced Pressure Generation: Yes Pre-Swallowing Pooling in Valleculae: Moderate - for all trials Pre-Swallowing Pooling in Pyriforms: Mild - for all textures Reduced Pharyngeal Peristalsis: Yes Multiple Swallows With: Ineffective Clearance Post Swallow Residuals in Valleculae: Moderate Post Swallow Residuals in Pyriforms: Moderate Post Swallow Residuals: throughout pharynx Pahryngeal Stage Comments: Patient demonstrated significant residue in valleculae and pyriform sinus for all PO trials this day. Residue was seen to enter laryngeal vestibule after the swallow. - Impression/Summary Laryngeal Penetration: Yes, Silent, after swallow Tracheal Aspiration: yes, delayed cough, after swallow Productive Cough: No Effective Clearing: partial clearing Ineffective Compensatory Strategies: hard swallow Patient Presents With: Oral stage dysphagia, Pharyngeal stage dysph., Severe Risk of Aspiration: Severe - Recommendations NPO: yes, free water Strict Aspitarion Precautions: Yes Dysphagia Therapy with AIRCRAFT MAINTENANCE ENGINEER: No Other Recommendations: Discussed recommendations of ice chips and water only by mouth with patient and family member. Did also discuss risk of pleasure feeds and nature of aspiration pneumonia with patient and family. - Time Total Time: 20 Total Timed Minutes: 20
[2016-10-25 15:38] LABS: FREE KAPPA LIGHT CHAINS 53.9 mg/L (3.3-19.4); FREE LAMBDA LIGHT CHAINS 50.9 mg/L (5.7-26.3)
[2016-10-25 15:53] LABS: KAPPA LAMBDA RATIO 1.06 (0.26-1.65)
[2016-10-25] MEDS: LEVOFLOXACIN 750 MG TABLET PEG SCH (17:58)
[2016-10-25] MEDS: AMITRIPTYLINE HCL 50 MG TABLET PEG SCH (23:22)
[2016-10-26] MEDS: OXYCODONE HCL IR 5 MG TABLET PEG PRN ×2 (00:40→11:35)
[2016-10-26] MEDS: ALBUTEROL SULFATE HFA (90 MCG/PUFF) 200 PUFF/8.5 GM MDI IH SCH ×3 (03:25→14:10)
[2016-10-26] MEDS: LANSOPRAZOLE 15 MG TAB.RAP.DR PEG SCH (06:23)
[2016-10-26 07:14] LABS: ANION GAP 10 (5-19); BLOOD UREA NITROGEN 17 mg/dL (7-20); CALCIUM 10.5 mg/dL (8.4-10.2); CARBON DIOXIDE 30 mmol/L (22-30); CHLORIDE 99 mmol/L (98-107); CREATININE RESULT 1.27 mg/dL (0.52-1.25); GLUCOSE 125 mg/dL (75-110); POTASSIUM 4.2 mmol/L (3.6-5.0); SODIUM 139.1 mmol/L (137-145)
--- NOTE | 2016-10-26 10:36 | PDOC DISCHARGE SUMMARY ---
General - Admit/Disc Date/PCP Admission Date/Primary Care Provider: 10/22/16 04:16 PALOMO KNAPP MD Discharge Date: 10/26/16 - Discharge Diagnosis (1) JEAN (acute kidney injury) Is this a current diagnosis for this admission?: Yes Summary: Due to the most likely a dehydration currently all stable (2) Hypercalcemia Is this a current diagnosis for this admission?: Yes Summary: Most likely due to the underlying dehydration and acute renal failure All of the skeletal survey to rule out multiple myeloma (3) Leukocytosis Is this a current diagnosis for this admission?: Yes Summary: Due to the pneumonia (4) ALS (amyotrophic lateral sclerosis) Is this a current diagnosis for this admission?: Yes Summary: Patient is currently follow with the [place] [facility] (5) Failure to thrive Is this a current diagnosis for this admission?: Yes Summary: Adjust the tube feeding per dietitian's discussed with the patient and the family (6) Pneumonia Is this a current diagnosis for this admission?: Yes Summary: Continues to Levaquin 500 mg daily for 7 days - Additional Information Resuscitation Status: Full Code Discharge Diet: Tube Feeding (Comments) Discharge Activity: Activity As Tolerated Home Medications: Albuterol Sulfate [Proair HFA] 2 inh IH Q6 12/10/12 Omeprazole [Prilosec 20 mg Capsule] 20 mg PO DAILY 12/10/12 Tiotropium [place] [Spiriva Handihaler 18 mcg/dose (30 Dose)] 1 cap IH DAILY Budesonide/Formoterol Fumarate [Symbicort HFA 160-4.5 mcg Inhaler 6 gm] 2 puff IH Q12 02/12/14 Amitriptyline HCl [Elavil 100 mg Tablet] 100 mg PO QHS 10/22/16 Baclofen [Baclofen 10 mg Tablet] 5 mg PO Q12 10/22/16 Glycopyrrolate 1 mg PO Q8 10/22/16 Oxycodone HCl [Oxycodone HCl 10 MG Tablet] 10 mg PO Q6 PRN 10/22/16 Riluzole 50 mg PO Q12 10/22/16 Levofloxacin [Levaquin 500 mg Tablet] 500 mg PO DAILY #7 tablet 10/26/16 History of Present Illness History of Present Illness: LAWANDA RECIO is a 61 year old male Is a 61-year-old male admitted because of the hypercalcemia and acute renal failure and pneumonia due to the ongoing dehydration is an ongoing ALS problem Hospital Course Hospital Course: Is a 61-year-old male with a significant history of the ALS currently see a [facility] for that with ongoing tube feeding have a blood work done in the office with a calcium was 12.3 and patient's creatinine was 2.2 And sent to the emergency department and admitting to the hospital and started on IV fluid Patient's PTH was low to rule out any other underlying malignancy with CT abdomen and pelvis was done was negative for any acute finding CT of the chest was done with so some pneumoniaMost likely aspirations Patient's kidney function is all getting better and calcium level Back to the baseline Patient have multiple myeloma workup was done which is still pending result follow outpatient Patient was consulted by the dietitian and adjust the tube feeding per calorie count and dehydration's Very extensive discussed with the patient and the caregiver regarding the patient's current conditions changing the tube feeding Since lisinopril was stopped Follow in outpatient center 1 week will recheck the CBC and Chem-7 Overall prognosis is poor due to the ongoing ALS Physical Exam Vital Signs: Temp Pulse Resp BP Pulse Ox 97.7 F 78 16 92/45 L 97 10/26/16 08:40 10/26/16 08:40 10/26/16 08:40 10/26/16 08:40 10/26/16 08:40 Intake & Output 10/25/16 10/26/16 10/27/16 06:59 06:59 06:59 Intake Total 2966 1666 Output Total 2150 1300 Balance 816 366 Weight 50.1 kg 50.1 kg General appearance: PRESENT: no acute distress, well-developed, well-nourished Head exam: PRESENT: atraumatic, normocephalic Eye exam: PRESENT: conjunctiva pink, EOMI, PERRLA. ABSENT: scleral icterus Ear exam: PRESENT: normal external ear exam Mouth exam: PRESENT: moist, tongue midline Neck exam: PRESENT: full ROM. ABSENT: carotid bruit, JVD, lymphadenopathy, thyromegaly Respiratory exam: PRESENT: clear to auscultation sandip Cardiovascular exam: PRESENT: RRR. ABSENT: diastolic murmur, rubs, systolic murmur Pulses: PRESENT: normal dorsalis pedis pul, +2 pedal pulses bilateral Vascular exam: PRESENT: normal capillary refill GI/Abdominal exam: PRESENT: normal bowel sounds, soft. ABSENT: distended, guarding, mass, organolmegaly, rebound, tenderness Rectal exam: PRESENT: deferred Neurological exam: PRESENT: alert, awake, oriented to person, oriented to place , oriented to time, oriented to situation, CN II-XII grossly intact. ABSENT: motor sensory deficit Psychiatric exam: PRESENT: appropriate affect, normal mood. ABSENT: homicidal ideation, suicidal ideation Skin exam: PRESENT: dry, intact, warm. ABSENT: cyanosis, rash Results Laboratory Results: 10/25/16 06:37 10/26/16 06:46 10/26/16 06:46 Sodium 139.1 Potassium 4.2 Chloride 99 Carbon Dioxide 30 Anion Gap 10 BUN 17 Creatinine 1.27 H Est GFR ( Amer) > 60 Est GFR (Non-Af Amer) 58 L Glucose 125 H Calcium 10.5 H 10/22/16 10/22/16 10/22/16 04:35 04:35 10:49 Creatine Kinase 28 L 23 L CK-MB (CK-2) 1.40 10/22/16 10/22/16 10/22/16 10:49 16:10 16:10 Creatine Kinase 30 L CK-MB (CK-2) 1.70 1.49 Impressions: Renal Ultrasound 10/22/16 00:00 IMPRESSION: No hydronephrosis. Outpouching at the urinary bladder, suggestive of a bladder diverticulum. Correlation with direct visualization recommended. Abdomen/Pelvis CT 10/24/16 00:00 IMPRESSION: 1. Atherosclerosis including the aorta and renal arteries and the superior mesenteric artery in particular. 2. No abdominal or pelvic mass or other abnormality is appreciated. Chest CT 10/24/16 00:00 IMPRESSION: 1. Left upper lobe pneumonia. 2. Pleural/parenchymal scarring in the lung apices and in the left lower lobe. Subsegmental atelectasis in the left lower lobe. These findings were stable. Plan Time Spent: Greater than 30 Minutes - Discharge home with the home health and adjust the tube feedingAnd aspirations precautionsAnd nothing by the mouth except some liquid Check a CBC and Chem-7 in 1 week
--- NOTE | 2016-10-26 10:52 | RADIOLOGY REPORT (SQ) ---
EXAM DESCRIPTION: BONE SURVEY COMPLETE COMPLETED DATE/TIME: 10/26/2016 10:30 am REASON FOR STUDY: hypercalciumia COMPARISON: CT chest abdomen pelvis 10/24/2016 Bilateral renal ultrasound 10/22/2016 TECHNIQUE: Images of the axial and proximal appendicular skeleton are obtained, along with lateral s kull and frontal chest films. LIMITATIONS: None. FINDINGS: AP CHEST: Chronic volume loss and bronchiectasis superior segment left lower lobe. No acute infiltrates. No pleural effusion. No pneumothorax. No cardiomegaly. LATERAL SKULL: No worrisome bone lesions. AP BOTH HUMERI: No worrisome bone lesions. TWO-VIEW LUMBAR SPINE: No worrisome bone lesions. TWO-VIEW THORACIC SPINE: No worrisome bone lesions. AP PELVIS: No worrisome bone lesions. AP BOTH FEMURS: No worrisome bone lesions. OTHER: Overall, there is diffuse osteopenia. Calcified carotid bifurcations. Left upper quadrant ga strostomy tube. IMPRESSION: NO WORRISOME BONE LESIONS. TECHNICAL DOCUMENTATION: JOB ID: [id number] [employer]- All Rights Reserved
[2016-10-26] MEDS: ENOXAPARIN SODIUM INJ 30 MG/0.3 ML DISP.SYRIN SUBCUT SCH (10:57)
[2016-10-26] MEDS: GLYCOPYRROLATE 1 MG TABLET PEG SCH ×2 (10:57→14:10)
[2016-10-26] MEDS: POTASSIUM CHLORIDE 20 MEQ/15 ML UDCUP PEG SCH (10:57)
[2016-10-26] MEDS: BACLOFEN 10 MG TABLET PEG SCH (10:57)
[2016-10-26] MEDS: TIOTROPIUM BROMIDE DPI 5 CAP/KIT (18 MCG/CAP) IH SCH (10:58)
[2016-10-26] MEDS: BUDESONIDE/FORMOTEROL 160-4.5 MCG 60 PUFF/6 GM MDI IH SCH (10:58)
[2016-10-26 11:55] VITALS: BP 125/51
[2016-10-26 13:38] LABS: ALBUMIN 3 2.8 g/dL (2.9-4.4); ALPHA-1-GLOBULIN 0.3 g/dL (0.0-0.4); ALPHA-2-GLOBULIN 3 0.7 g/dL (0.4-1.0); BETA GLOBULIN 1.1 g/dL (0.7-1.3); GLOBULIN TTL 3.3 g/dL (2.2-3.9); IMMUNOGLOBULIN A 631 mg/dL (90-386); IMMUNOGLOBULIN G 1142 mg/dL (700-1600); IMMUNOGLOBULIN M 110 mg/dL (20-172); MONOCLONAL-SPIKE Not Observed g/dL (Not Observed); PROTEIN TOTAL SERUM 6.1 g/dL (6.0-8.5)
--- NOTE | 2016-10-26 17:07 | RADIOLOGY REPORT (SQ) ---
EXAM DESCRIPTION: COOKIE SWALLOW COMPLETED DATE/TIME: 10/25/2016 8:46 am REASON FOR STUDY: dysphagia unspecified R 13.10 food in pharynx causing other injury, sequela T1 7.2 28 S COMPARISON: Cookie swallow 07/16/2013 TECHNIQUE: Videofluoroscopic swallowing examination was performed in conjunction with speech patholo gy. Videofluoroscopic imaging was obtained and reviewed and these are the findings: RADIATION DOSE: Total fluoroscopy time: 1 minutes 46 seconds 1 fluoroscopy image saved to PACS. LIMITATIONS: None FINDINGS: The patient was brought into the fluoro room and placed upright on a modified barium swall ow chair. The patient was then given purees, thin, and honey thick consistencies mixed with barium t o swallow under live fluoroscopic video guidance. According to the Speech Pathologist there was inessa ngeal penetration and tracheal aspiration with thin and honey thick consistencies. Delayed and weak swallowing mechanism is noted. Mild to moderate post swallow residual is noted within the vallecula and piriform sinuses and laryngeal penetration and tracheal aspiration is noted with these residuals. Please see speech pathology report for further details and recommendations. IMPRESSION: LARYNGEAL PENETRATION AND TRACHEAL ASPIRATION WITH THIN AND HONEY CONSISTENCIES. DELAYE D AND WEAK SWALLOWING MECHANISM ABOVE.PLEASE SEE SPEECH PATHOLOGIST REPORT FOR OTHER FINDINGS AND RECOMMENDATIONS. COMMENT: Quality ID [id number]: Final reports for procedures using fluoroscopy that document radiation exp osure indices, or exposure time and number of fluorographic images (if radiation exposure indices are not available) TECHNICAL DOCUMENTATION: JOB ID: [id number] [employer]- All Rights Reserved
== END 2016-10-26 14:45 | disposition home health service (06) | DRG 682 ==
LOC: ER 19:12 → EH 23:11 → UNDOADMIN 23:11 → EH 10-22 01:55 → 5 10-22 01:55 → EH 10-22 04:16 → 5 10-22 04:16
PROVIDERS: ADMIT Internal Medicine; ATTEND Family Medicine
DX: N17.9 Acute kidney failure, unspecified (principal); J69.0 Pneumonitis due to inhalation of food and vomit; G12.21 Amyotrophic lateral sclerosis; E86.0 Dehydration; E83.52 Hypercalcemia; R62.7 Adult failure to thrive; I10 Essential (primary) hypertension; J44.9 Chronic obstructive pulmonary disease, unspecified; K70.30 Alcoholic cirrhosis of liver without ascites; M19.90 Unspecified osteoarthritis, unspecified site; Z87.891 Personal history of nicotine dependence; Z79.899 Other long term (current) drug therapy; Z88.0 Allergy status to penicillin; Z88.2 Allergy status to sulfonamides
CPT/HCPCS: 36415; 71250; 74176; 74230; 76770; 77075; 80048; 80053; 80307; 81001; 82550; 82553; 82784; 83036; 83735; 83883; 83970; 84100; 84439; 84443; 85025; 86320; 93005; 93010; 99285; G8996-GN; G8997-GN; G8998-GN; J1650; J3490; J7030

== ENCOUNTER → 2017-06-15 | Outpatient (CLI) | payer MEDICAID ==
--- NOTE | 2017-06-15 15:11 | RADIOLOGY REPORT (SQ) ---
EXAM DESCRIPTION: CT CHEST WITHOUT COMPLETED DATE/TIME: 06/15/2017 1:42 pm REASON FOR STUDY: R91.8 OTHER NONSPECIFIC ABNORMAL FINDING OF LUNG FIELD R91.8 OTHER NONSPECIFIC AB NORMAL FINDING OF LUNG FIELD COMPARISON: Chest CT exams 04/11/2006, 01/13/2010, 06/05/2013, 07/15/2014, 10/24/2016 TECHNIQUE: CT scan performed of the chest without intravenous contrast. Images reviewed with lung, soft tissue and bone windows. Reconstructed coronal and sagittal MPR images reviewed. All images st ored on PACS. All CT scanners at this facility use dose modulation, iterative reconstruction, and/or weight based d osing when appropriate to reduce radiation dose to as low as reasonably achievable (ALARA). [facility]: Dose Right [facility]: CareDose [facility]: Dose Right [facility]: Teradose 4D [facility]: [employer] RADIATION DOSE: CT Rad equipment meets quality standard of care and radiation dose reduction techniq ues were employed. CTDIvol: 4.8 mGy. DLP: 177 mGy-cm. mGy. LIMITATIONS: No technical limitations. FINDINGS: LUNGS AND PLEURA: Chronic volume loss and bronchiectasis in the left lower lobe is present unchanged from 2006. Infiltrates in the left upper lobe seen 10/24/2016 have resolved. On today's exam, there is a 5 mm alveolar nodule is present in the right lower lobe axial image 75. Follow-up as per Fleischner criteria. No pleural effusions. No pneumothorax. HILAR AND MEDIASTINAL STRUCTURES: No identified masses or abnormal nodes. No obvious aneurysm. HEART AND VASCULAR STRUCTURES: No aneurysm. No pericardial effusion. Atherosclerotic arterial vascu lar calcification left proximal subclavian artery axial image 16. Atherosclerotic thoracic aortic ca lcification without aneurysm. Minimal coronary artery calcifications. UPPER ABDOMEN: No significant findings. Limited exam. THYROID AND OTHER SOFT TISSUES: Bilateral gynecomastia BONES: No significant finding. HARDWARE: None in the chest. OTHER: No other significant findings. IMPRESSION: 5 mm alveolar nodule in the right lower lobe axial image 75. Chronic bronchiectasis and volume loss/ scarring left lower lobe similar compared to 2007 COMMENT: Fleischner Criteria for Ground Glass Nodules: <6mm ground glass single nodule: No routine followup TECHNICAL DOCUMENTATION: JOB ID: [id number] Quality ID # [id number]: Final reports with documentation of one or more dose reduction techniques (e.g., Au tomated exposure control, adjustment of the mA and/or kV according to patient size, use of iterative reconstruction technique) 2010 [employer]- All Rights Reserved Reading location - IP/workstation name: [email or web address]
== END ==
LOC: RAD 13:30
PROVIDERS: ATTEND Internal Medicine Critical Care Medicine
DX: J44.9 Chronic obstructive pulmonary disease, unspecified (principal); R91.1 Solitary pulmonary nodule; R91.8 Other nonspecific abnormal finding of lung field; G47.34 Idiopathic sleep related nonobstructive alveolar hypoventilation; R06.00 Dyspnea, unspecified; R09.02 Hypoxemia; G12.21 Amyotrophic lateral sclerosis
CPT/HCPCS: 71250

== ENCOUNTER 2017-08-11 17:24 | Emergency (ER) | payer MEDICAID ==
[2017-08-11 18:00] LABS: ABSOLUTE EOSINOPHILS # (AUTO) 0.1 10^3/uL (0.0-0.6); ABSOLUTE LYMPHOCYTES (AUTO) 1.7 10^3/uL (0.5-4.7); ABSOLUTE MONOCYTES (AUTO) 0.6 10^3/uL (0.1-1.4); ABSOLUTE NEUT (AUTO) 8.3 10^3/uL (1.7-8.2); BASOPHILS % (AUTO) 0.4 % (0-2); HEMATOCRIT 31.2 % (37.9-51.0); HEMOGLOBIN 10.7 g/dL (13.5-17.0); MEAN CORPUSCULAR HEMOGLOBIN 31.1 pg (27.0-33.4); MEAN CORPUSCULAR HGB CONC 34.3 g/dL (32.0-36.0); MEAN CORPUSCULAR VOLUME 91 fl (80-97); MONOCYTES % (AUTO) 5.9 % (3-13); PLATELET COUNT 235 10^3/uL (150-450); RED BLOOD COUNT 3.44 10^6/uL (4.35-5.55); RED CELL DISTRIBUTION WIDTH 14.2 % (11.5-14.0); SEGMENTED NEUTROPHILS % (AUTO) 76.7 % (42-78); TOTAL CELLS COUNTED % (AUTO) 100 %; WHITE BLOOD COUNT 10.8 10^3/uL (4.0-10.5)
--- NOTE | 2017-08-11 18:17 | RADIOLOGY REPORT (SQ) ---
EXAM DESCRIPTION: CHEST SINGLE VIEW COMPLETED DATE/TIME: 08/11/2017 6:09 pm REASON FOR STUDY: shortness of breath COMPARISON: CT chest 06/15/2017 chest radiograph 10/12/2016 EXAM PARAMETERS: NUMBER OF VIEWS: One view. TECHNIQUE: Single frontal radiographic view of the chest acquired. RADIATION DOSE: NA LIMITATIONS: None. FINDINGS: LUNGS AND PLEURA: Hyperexpansion of the lungs. Mild chronic interstitial changes. No acu te infiltrate or pleural effusion. No mass. MEDIASTINUM AND HILAR STRUCTURES: No masses. Contour normal. HEART AND VASCULAR STRUCTURES: Heart normal in size. Normal vasculature. BONES: No acute findings. HARDWARE: None in the chest. OTHER: No other significant finding. IMPRESSION: Chronic lung changes with no acute cardiopulmonary disease. TECHNICAL DOCUMENTATION: JOB ID: [id number] [employer]- All Rights Reserved Reading location - IP/workstation name: [email or web address]
[2017-08-11 18:21] LABS: ALANINE AMINOTRANSFERASE 29 U/L (21-72); ALKALINE PHOSPHATASE 67 U/L (38-126); ANION GAP 14 (5-19); ASPARTATE AMINO TRANSFERASE 40 U/L (17-59); BILIRUBIN,DIRECT 0.6 mg/dL (0.0-0.4); BILIRUBIN,TOTAL 0.6 mg/dL (0.2-1.3); BLOOD UREA NITROGEN 32 mg/dL (7-20); CALCIUM 9.3 mg/dL (8.4-10.2); CARBON DIOXIDE 28 mmol/L (22-30); CHLORIDE 100 mmol/L (98-107); GLUCOSE 110 mg/dL (75-110); SODIUM 141.9 mmol/L (137-145); TOTAL PROTEIN 7.4 g/dL (6.3-8.2)
--- NOTE | 2017-08-11 20:18 | ER Document Report ---
ED General - General Chief Complaint: Respiratory Distress Stated Complaint: DIFFICULTY BREATHING Time Seen by Provider: 08/11/17 17:33 Mode of Arrival: Medic Information source: Patient, Relative Notes: 62 year old Male with a history of ALS brought to the ED from his pulmonologists office for difficulty breathing over the last 2 weeks. Patient has had multiple episodes of pneumonia. Family in the room state that he just finished a round a levofloxacin a week ago. While at the wrong address clerk office, he thought that the patient needed a trach placed. The patient has frequent aspiration pneumonia. On arrival in the emergency department, patient's vital signs are stable. Patient is in no acute distress. TRAVEL OUTSIDE OF THE [place] IN LAST 30 DAYS: No - HPI Onset: Other - chronic shortness of breath. worse over the last 2 weeks Quality of pain: No pain Severity: None Pain Level: Denies Associated symptoms: None Exacerbated by: Denies Relieved by: Denies Similar symptoms previously: Yes Recently seen / treated by doctor: Yes - Related Data Allergies/Adverse Reactions: Penicillins Allergy (Intermediate, Verified 10/21/16 19:21) Nausea and vomiting Sulfa (Sulfonamide Antibiotics) Allergy (Intermediate, Verified 10/21/16 19:21) upset stomach, vomiting Past Medical History - General Information source: Patient, Relative - Social History Smoking Status: Former Smoker Chew tobacco use (# tins/day): No Family History: Reviewed & Not Pertinent Patient has suicidal ideation: No Patient has homicidal ideation: No - Past Medical History Cardiac Medical History: Reports: Hx Hypertension Denies: Hx Congestive Heart Failure Pulmonary Medical History: Reports: Hx Asthma, Hx Bronchitis, Hx COPD, Hx Pneumonia Endocrine Medical History: Denies: Hx Diabetes Mellitus Type 1, Hx Diabetes Mellitus Type 2 Renal/ Medical History: Denies: Hx Peritoneal Dialysis GI Medical History: Reports: Hx Cirrhosis - Alcoholic cirrhosis Musculoskeltal Medical History: Reports Hx Arthritis Past Surgical History: Reports: Hx Abdominal Surgery - peg tube placement - Immunizations Hx Diphtheria, Pertussis, Tetanus Vaccination: No - unsure Review of Systems - Review of Systems Constitutional: No symptoms reported EENT: No symptoms reported Cardiovascular: No symptoms reported Respiratory: Short of breath Gastrointestinal: No symptoms reported Genitourinary: No symptoms reported Musculoskeletal: No symptoms reported Skin: No symptoms reported Neurological/Psychological: No symptoms reported -: Yes All other systems reviewed and negative Physical Exam - Vital signs Vitals: Pulse Ox 94 08/11/17 18:00 Interpretation: Normal - Notes Notes: PHYSICAL EXAMINATION: GENERAL: Well-appearing, well-nourished and in no acute distress. HEAD: Atraumatic, normocephalic. EYES: Pupils equal round and reactive to light, extraocular movements intact, sclera anicteric, conjunctiva are normal. ENT: Nares patent, oropharynx clear without exudates. Moist mucous membranes. NECK: Normal range of motion, supple without lymphadenopathy LUNGS: Breath sounds clear to auscultation bilaterally and equal. No wheezes rales or rhonchi. HEART: Regular rate and rhythm without murmurs ABDOMEN: Soft, nontender, nondistended abdomen. No guarding, no rebound. No masses appreciated. Musculoskeletal: Normal range of motion, no pitting or edema. No cyanosis. NEUROLOGICAL: Cranial nerves grossly intact. Normal sensory, motor exams PSYCH: Normal mood, normal affect. SKIN: Warm, Dry, normal turgor, no rashes or lesions noted. Course - Re-evaluation Re-evalutation: 08/11/17 20:17 Labs and imaging obtained. Patient's white blood cell count was elevated at 10.8. CXR shows chronic changes. No acute pneumonia. Hemoglobin has increased from previous. I contacted Dr. Mckeon to see about admission for trach placement as the wrong address clerk wanted. He does not feel that the patient needs to be admitted to the hospital at this time. He feels that the patient can follow-up outpatient to get the trach placed. I discussed the plan of care with the family. They are agreeable with discharge home, following up with Dr. Knapp outpatient, having a surgical consult for trach placement outpatient. Patient is currently stable. 08/11/17 20:20 - Vital Signs Vital signs: Temp Pulse Resp BP Pulse Ox 94 08/11/17 18:00 - Laboratory Result Diagrams: 08/11/17 17:40 08/11/17 17:40 Laboratory results interpreted by me: 08/11/17 08/11/17 17:40 17:40 WBC 10.8 H RBC 3.44 L Hgb 10.7 L Hct 31.2 L RDW 14.2 H Absolute Neutrophils 8.3 H BUN 32 H Direct Bilirubin 0.6 H Discharge - Discharge Clinical Impression: Shortness of breath Condition: Good Disposition: HOME, SELF-CARE Instructions: Cough Suppressant & Expectorant Medications Referrals: MICHELLE VILLASENOR MD [Primary Care Provider] - Follow up as needed PALOMO KNAPP MD [ACTIVE STAFF] - Follow up as needed
[2017-08-11 20:44] VITALS: BP 139/69
--- NOTE | 2017-08-12 00:22 | EKG REPORT ---
SEVERITY:- NORMAL ECG - SINUS RHYTHM : Confirmed by: Funmi Whitlock MD 12-Aug-2017 00:21:05
== END 2017-08-11 20:44 | disposition home or self-care (01) ==
LOC: ER 17:24
DX: R06.02 Shortness of breath (principal); I10 Essential (primary) hypertension; Z88.0 Allergy status to penicillin; Z88.2 Allergy status to sulfonamides; Z87.891 Personal history of nicotine dependence
CPT/HCPCS: 36415; 71045; 80053; 84484; 85025; 87040; 93005; 93010; 99285

== ENCOUNTER 2017-12-24 05:06 | Inpatient (IN) | payer MEDICAID ==
[2017-12-24] MEDS ORDERED: MORPHINE SULFATE 10 MG/ML INJ IV ONE ×2 (05:18→07:55)
[2017-12-24] MEDS ORDERED: ONDANSETRON HCL INJ/PF 4 MG/2 ML SDV IV ONE (05:18)
[2017-12-24] MEDS ORDERED: NORMAL SALINE 1000 ML 500 ML IV ONE (05:18)
--- NOTE | 2017-12-24 05:25 | ER Document Report ---
ED Medical Screen (RME) - General Stated Complaint: ABDOMINAL PAIN Time Seen by Provider: 12/24/17 05:16 Notes: 62-year-old male comes by EMS for chief complaints of upper abdominal pain. He also reports shortness of breath. He has ALS, communicates with gesturing and head motions. Reports worsening abdominal pain over the past day, no bowel movement over the past 2 or 3 days, no vomiting, patient takes most nourishment through G-tube, some fluids p.o. Denies fever, chest pain. Denies cough. Medical history includes COPD, GERD, pain management. TRAVEL OUTSIDE OF THE [place] IN LAST 30 DAYS: No - Related Data Allergies/Adverse Reactions: Penicillins Allergy (Intermediate, Verified 10/21/16 19:21) Nausea and vomiting Sulfa (Sulfonamide Antibiotics) Allergy (Intermediate, Verified 10/21/16 19:21) upset stomach, vomiting Past Medical History - Past Medical History Cardiac Medical History: Reports: Hx Hypertension Denies: Hx Congestive Heart Failure Pulmonary Medical History: Reports: Hx Asthma, Hx Bronchitis, Hx COPD, Hx Pneumonia Endocrine Medical History: Denies: Hx Diabetes Mellitus Type 1, Hx Diabetes Mellitus Type 2 Renal/ Medical History: Denies: Hx Peritoneal Dialysis GI Medical History: Reports: Hx Cirrhosis - Alcoholic cirrhosis Musculoskeltal Medical History: Reports Hx Arthritis Past Surgical History: Reports: Hx Abdominal Surgery - peg tube placement - Immunizations Hx Diphtheria, Pertussis, Tetanus Vaccination: No - unsure Physical Exam - General General appearance: Anxious - Abdominal Tenderness: Tender - Pain with palpation over the general upper abdomen, nontender lower abdomen Course - Re-evaluation Re-evalutation: Patient keeps gesturing to his upper abdomen as if he hurts in this location. When asked if he hurts there he nods yes. When asked if he hurts anywhere else he nods no. Patient is tachycardic and uncomfortable appearing. Reportedly hypoxic mildly by EMS, unsure if this is patient's baseline with COPD. Monitoring placed, providing small amount of pain medicine, workup pending. I have greeted and performed a rapid initial assessment of this patient. A comprehensive ED assessment and evaluation of the patient, analysis of test results and completion of the medical decision making process will be conducted by additional ED providers. Doctor's Discharge - Discharge Referrals: DESUYO,MICHELLE, MD [Primary Care Provider] - Follow up as needed
[2017-12-24 05:46] LABS: HEMATOCRIT 36.1 % (37.9-51.0); HEMOGLOBIN 12.1 g/dL (13.5-17.0); MEAN CORPUSCULAR HEMOGLOBIN 30.7 pg (27.0-33.4); MEAN CORPUSCULAR HGB CONC 33.4 g/dL (32.0-36.0); MEAN CORPUSCULAR VOLUME 92 fl (80-97); PLATELET COUNT 256 10^3/uL (150-450); RED BLOOD COUNT 3.93 10^6/uL (4.35-5.55); RED CELL DISTRIBUTION WIDTH 14.8 % (11.5-14.0); WHITE BLOOD COUNT 15.3 10^3/uL (4.0-10.5)
[2017-12-24 06:03] LABS: ALANINE AMINOTRANSFERASE 39 U/L (21-72); ALBUMIN 4.1 g/dL (3.5-5.0); ALKALINE PHOSPHATASE 108 U/L (38-126); ANION GAP 16 (5-19); ASPARTATE AMINO TRANSFERASE 36 U/L (17-59); BILIRUBIN,DIRECT 0.6 mg/dL (0.0-0.4); BILIRUBIN,TOTAL 1.2 mg/dL (0.2-1.3); BLOOD UREA NITROGEN 25 mg/dL (7-20); CARBON DIOXIDE 28 mmol/L (22-30); CHLORIDE 96 mmol/L (98-107); GLUCOSE 104 mg/dL (75-110); LIPASE 185.3 U/L (23-300); POTASSIUM 4.6 mmol/L (3.6-5.0); SODIUM 139.6 mmol/L (137-145); TOTAL PROTEIN 7.9 g/dL (6.3-8.2)
[2017-12-24 06:08] LABS: ABSOLUTE LYMPHOCYTES# (MANUAL) 0.6 10^3/uL (0.5-4.7); ABSOLUTE MONOCYTES # (MANUAL) 1.1 10^3/uL (0.1-1.4); ABSOLUTE NEUTROPHILS# (MANUAL) 13.6 10^3/uL (1.7-8.2); BASOPHILS % (MANUAL) 0 % (0-2); EOSINOPHILS % (MANUAL) 0 % (0-6); LYMPHOCYTES % (MANUAL) 4 % (13-45); MONOCYTES % (MANUAL) 7 % (3-13); POLYCHROMASIA 1+; SEGMENTED NEUTROPHILS % (MAN) 89 % (42-78); TOTAL CELLS COUNTED 100; TOXIC GRANULATION 1+
[2017-12-24 06:09] LABS: ANISOCYTOSIS 1+; PLATELET COMMENT ADEQUATE
[2017-12-24 06:12] LABS: VENOUS BLOOD PH 7.41 (7.30-7.42)
[2017-12-24 06:13] LABS: VENOUS BLOOD BASE EXCESS 4.3 mmol/L; VENOUS BLOOD HCO3 30.3 mmol/L (20-32); VENOUS BLOOD PCO2 48.4 mmHg (35-63)
--- NOTE | 2017-12-24 06:50 | ER Document Report ---
ED General - General Chief Complaint: Epigastric Pain Stated Complaint: ABDOMINAL PAIN Time Seen by Provider: 12/24/17 05:16 TRAVEL OUTSIDE OF THE [place] IN LAST 30 DAYS: No - HPI Notes: Patient is a 62-year-old male that presents to the emergency department for chief complaint of abdominal pain. Patient has ALS and is nonverbal but is able to shake his head yes and no to answer questions, this is limiting my HPI. Patient has been having a right- sided abdominal pain since yesterday. The pain was initially intermittent but has been constant since 3 AM this morning. A friend states that she helped him stand up to use the bathroom and he doubled forward grabbing his right upper quadrant. He states the pain is been constant since about 3 AM when that event occurred. He does have some difficulty urinating. He denies history of kidney stones in the past. He denies any vomiting but does feel nauseated. He denies any difficulty with bowel movements. He has not had any home medications for pain. He does get all of his nutrition through G-tube. Past Medical History: ALS, COPD Past Surgical History: G-tube Social History: Denies drugs alcohol and tobacco Family History: Reviewed and noncontributory for presenting illness Allergies: Reviewed, see documented allergy list. REVIEW OF SYSTEMS: CONSTITUTIONAL : No fever No chills No diaphoresis No recent illness EENT: No vision changes No congestion No sore throat CARDIOVASCULAR: No chest pain No palpitations RESPIRATORY: No shortness of breath No cough difficulty breathing GASTROINTESTINAL: abdominal pain nausea No vomiting No diarrhea GENITOURINARY: No dysuria No hematuria No difficulty urinating MUSCULOSKELETAL: No back pain No leg pain No arm pain SKIN: No rashes No lesions LYMPHATIC: No swollen, enlarged glands. NEUROLOGICAL: No lightheadedness No headache No weakness No paresthesias PSYCHIATRIC: No anxiety No depression PHYSICAL EXAMINATION: Vital signs reviewed, nursing noted reviewed. GENERAL: Well-appearing, well-nourished and in no acute distress. HEAD: Atraumatic, normocephalic. EYES: Eyes appear normal, extraocular movements intact, sclera anicteric, conjunctiva are normal. ENT: nares patent, oropharynx clear without exudates. Moist mucous membranes. NECK: Normal range of motion, supple without lymphadenopathy LUNGS: Breath sounds clear to auscultation bilaterally and equal. No wheezes rales or rhonchi. HEART: Regular rate and rhythm without murmurs ABDOMEN: Soft, mild diffuse tenderness worse in the right upper quadrant, negative Daniel sign, G-tube ostomy in upper abdomen clean, dry and intact with no surrounding erythema, normoactive bowel sounds. No rebound, guarding, or rigidity. No masses appreciated. EXTREMITIES: Nontender, good range of motion, no pitting or edema. NEUROLOGICAL: Paralysis of facial muscles, upper extremity flexion contractures , minimal dorsiflexion plantarflexion of the lower extremities PSYCH: Normal mood, normal affect. SKIN: Warm, Dry, normal turgor, no rashes or lesions noted on exposed skin - Related Data Allergies/Adverse Reactions: Penicillins Allergy (Intermediate, Verified 10/21/16 19:21) Nausea and vomiting Sulfa (Sulfonamide Antibiotics) Allergy (Intermediate, Verified 10/21/16 19:21) upset stomach, vomiting Past Medical History - Social History Smoking Status: Unknown if Ever Smoked Family History: Reviewed & Not Pertinent Patient has suicidal ideation: No Patient has homicidal ideation: No - Past Medical History Cardiac Medical History: Reports: Hx Hypertension Denies: Hx Congestive Heart Failure Pulmonary Medical History: Reports: Hx Asthma, Hx Bronchitis, Hx COPD, Hx Pneumonia Endocrine Medical History: Denies: Hx Diabetes Mellitus Type 1, Hx Diabetes Mellitus Type 2 Renal/ Medical History: Denies: Hx Peritoneal Dialysis GI Medical History: Reports: Hx Cirrhosis - Alcoholic cirrhosis Musculoskeletal Medical History: Reports Hx Arthritis Past Surgical History: Reports: Hx Abdominal Surgery - peg tube placement - Immunizations Hx Diphtheria, Pertussis, Tetanus Vaccination: No - unsure Review of Systems - Review of Systems Notes: Dictated Physical Exam - Vital signs Vitals: Resp 26 H 12/24/17 05:23 - Notes Notes: Dictated Course - Re-evaluation Re-evalutation: 12/24/17 06:50 Vitals reviewed. Nursing notes reviewed. Patient given IV hydration, antiemetics and pain medication for symptomatic management. 12/24/17 08:09 Patient continued to have increasing pain and was given a second dose of morphine. Lab work shows a leukocytosis and CT scan shows early appendicitis. Case was discussed with Dr. Edmonds who will admit the patient for his acute appendicitis. Patient in agreement with this plan and stable at time of admission. Laboratory 11/11/18 11/11/18 11/11/18 05:29 05:29 05:29 WBC 15.3 H RBC 3.93 L Hgb 12.1 L Hct 36.1 L MCV 92 MCH 30.7 MCHC 33.4 RDW 14.8 H Plt Count 256 Total Counted 100 Seg Neutrophils % Not Reportable Seg Neuts % (Manual) 89 H Lymphocytes % Not Reportable Lymphocytes % (Manual) 4 L Monocytes % Not Reportable Monocytes % (Manual) 7 Eosinophils % Not Reportable Eosinophils % (Manual) 0 Basophils % Not Reportable Basophils % (Manual) 0 Absolute Neutrophils Not Reportable Abs Neuts (Manual) 13.6 H Absolute Lymphocytes Not Reportable Abs Lymphs (Manual) 0.6 Absolute Monocytes Not Reportable Abs Monocytes (Manual) 1.1 Absolute Eosinophils Not Reportable Absolute Eos (Manual) 0.0 Absolute Basophils Not Reportable Abs Basophils (Manual) 0.0 Toxic Granulation 1+ Platelet Comment ADEQUATE Polychromasia 1+ Anisocytosis 1+ VBG pH VBG pCO2 VBG HCO3 VBG Base Excess Sodium 139.6 Potassium 4.6 Chloride 96 L Carbon Dioxide 28 Anion Gap 16 BUN 25 H Creatinine 0.90 Est GFR ( Amer) > 60 Est GFR (Non-Af Amer) > 60 Glucose 104 Lactic Acid Calcium 10.0 Total Bilirubin 1.2 Direct Bilirubin 0.6 H Neonat Total Bilirubin Not Reportable Neonat Direct Bilirubin Not Reportable Neonat Indirect Bili Not Reportable AST 36 ALT 39 Alkaline Phosphatase 108 Troponin I < 0.012 Total Protein 7.9 Albumin 4.1 Lipase 185.3 12/24/17 12/24/17 05:29 05:29 WBC RBC Hgb Hct MCV MCH MCHC RDW Plt Count Total Counted Seg Neutrophils % Seg Neuts % (Manual) Lymphocytes % Lymphocytes % (Manual) Monocytes % Monocytes % (Manual) Eosinophils % Eosinophils % (Manual) Basophils % Basophils % (Manual) Absolute Neutrophils Abs Neuts (Manual) Absolute Lymphocytes Abs Lymphs (Manual) Absolute Monocytes Abs Monocytes (Manual) Absolute Eosinophils Absolute Eos (Manual) Absolute Basophils Abs Basophils (Manual) Toxic Granulation Platelet Comment Polychromasia Anisocytosis VBG pH 7.41 VBG pCO2 48.4 VBG HCO3 30.3 VBG Base Excess 4.3 Sodium Potassium Chloride Carbon Dioxide Anion Gap BUN Creatinine Est GFR ( Amer) Est GFR (Non-Af Amer) Glucose Lactic Acid 1.3 Calcium Total Bilirubin Direct Bilirubin Neonat Total Bilirubin Neonat Direct Bilirubin Neonat Indirect Bili AST ALT Alkaline Phosphatase Troponin I Total Protein Albumin Lipase Acute Abdomen Series 12/24/17 05:16 IMPRESSION: No acute findings. Abdomen/Pelvis CT 12/24/17 06:46 IMPRESSION: Mildly dilated appendix which is along the right upper quadrant with multiple appendicoliths. No definite periappendiceal inflammatory changes or evidence of a perforation or abscess/phlegmon formation. This may be due to an early acute uncomplicated appendicitis. Ground glass opacities along the dependent portion of the right lung base, which may represent atelectasis or pneumonia. TECHNICAL DOCUMENTATION: Quality ID # 436: Final reports with documentation of one or more dose reduction techniques (e.g., Automated exposure control, adjustment of the mA and/or kV according to patient size, use of iterative reconstruction technique) 2010 [employer]- All Rights Reserved - Vital Signs Vital signs: Temp Pulse Resp BP Pulse Ox 23 H 120/62 96 12/24/17 07:01 12/24/17 07:00 12/24/17 07:01 - Laboratory Result Diagrams: 12/24/17 05:29 12/24/17 05:29 Laboratory results interpreted by me: 12/24/17 12/24/17 05:29 05:29 WBC 15.3 H RBC 3.93 L Hgb 12.1 L Hct 36.1 L RDW 14.8 H Seg Neuts % (Manual) 89 H Lymphocytes % (Manual) 4 L Abs Neuts (Manual) 13.6 H Chloride 96 L BUN 25 H Direct Bilirubin 0.6 H - EKG Interpretation by Me Additional EKG results interpreted by me: 12/24/17 08:02 Interpreted by myself [id number]: Sinus tachycardia, rate 109, normal axis, no ectopy, no ST elevation, normal QTc, no significant change from 08/11/17 Discharge - Discharge Clinical Impression: Acute appendicitis Qualifiers: Acute appendicitis type: unspecified acute appendicitis type Qualified Code(s) : K35.80 - Unspecified acute appendicitis Condition: Stable Disposition: ADMITTED INPATIENT Admitting Provider: Surgicalist Unit Admitted: Surgical Floor
--- NOTE | 2017-12-24 06:58 | RADIOLOGY REPORT (SQ) ---
EXAM DESCRIPTION: XR ABDOMEN SUPINE AND ERECT WITH CHEST (ABD ACUTE SERIES) COMPLETED DATE/TME: 12/24/2017 05:16 CLINICAL HISTORY: 62 years Male, abd pain, shortness of breath COMPARISON: None. NUMBER OF VIEWS/TECHNIQUE: 3 LIMITATIONS: None. FINDINGS: Intestinal gas pattern is within normal limits. Paucity of bowel gas. No suspicious calcification. Grossly intact skeletal structures. No acute cardiopulmonary findings. Increased lung volume. Atherosclerosis. IMPRESSION: No acute findings.
--- NOTE | 2017-12-24 07:59 | RADIOLOGY REPORT (SQ) ---
EXAM DESCRIPTION: CT ABDOMEN PELVIS WITH IV CONTRAST COMPLETED DATE/TME: 12/24/2017 06:46 CLINICAL HISTORY: 62 years, Male, abdominal pain, RUQ COMPARISON: None. TECHNIQUE: Axial CT images of the abdomen and pelvis were obtained after the injection of IV contrast. DLP [id number] Images stored on PACS. All CT scanners at this facility use dose modulation, iterative reconstruction, and/or weight based dosing when appropriate to reduce radiation dose to as low as reasonably achievable (ALARA). [facility]: Dose Right [facility]: CareDose [facility]: Dose Right [facility]: Teradose 4D [facility]: Smart SpinalMotion LIMITATIONS: None. FINDINGS: There are groundglass opacities along the dependent portion of the right lung base. There is scarring/atelectasis along the left lung base. The liver, gallbladder, pancreas, spleen, and adrenal glands are unremarkable. Both kidneys appear unremarkable. There is no evidence of nephrolithiasis or hydronephrosis. There is no intraperitoneal free air or fluid. There is no lymphadenopathy. There are atherosclerotic calcifications of the abdominal aorta without evidence of an aneurysm A PEG tube is in place. The small bowel is unremarkable. The appendix contains multiple appendicoliths and measures up to 8 mm in diameter and is along the right upper quadrant. No definite periappendiceal inflammatory changes or evidence of a perforation or abscess/phlegmon formation. The colon contains a moderate amount of stool. The rectum is distended with stool. There are no lytic or blastic bone lesions. IMPRESSION: Mildly dilated appendix which is along the right upper quadrant with multiple appendicoliths. No definite periappendiceal inflammatory changes or evidence of a perforation or abscess/phlegmon formation. This may be due to an early acute uncomplicated appendicitis. Ground glass opacities along the dependent portion of the right lung base, which may represent atelectasis or pneumonia. TECHNICAL DOCUMENTATION: Quality ID # 436: Final reports with documentation of one or more dose reduction techniques (e.g., Automated exposure control, adjustment of the mA and/or kV according to patient size, use of iterative reconstruction technique) 2010 [employer]- All Rights Reserved
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
[2017-12-24 09:29] LABS: PROTHROMBIN TIME 13.7 SEC (11.4-15.4)
[2017-12-24] MEDS: RINGERS SOLUTION,LACTATED 1,000 ML IV PRN (10:02)
[2017-12-24] MEDS: METRONIDAZOLE 500 MG/NS RTU 500 MG/100 ML RTUPB IV SCH ×2 (10:03→17:33)
--- NOTE | 2017-12-24 10:04 | EKG REPORT ---
SEVERITY:- OTHERWISE NORMAL ECG - SINUS TACHYCARDIA : Confirmed by: Alvarado Rock MD 24-Dec-2017 10:03:42
--- NOTE | 2017-12-24 10:43 | RADIOLOGY REPORT (SQ) ---
EXAM DESCRIPTION: CHEST SINGLE VIEW COMPLETED DATE/TIME: 12/24/2017 10:27 am REASON FOR STUDY: preop COMPARISON: 12/17/2015. NUMBER OF VIEWS: One view. TECHNIQUE: Single frontal radiographic view of the chest acquired. LIMITATIONS: None. FINDINGS: LUNGS AND PLEURA: No opacities, masses or pneumothorax. No pleural effusion. Attenuated bl ood vessels and flattened iona-diaphragms. MEDIASTINUM AND HILAR STRUCTURES: No masses. Contour normal. HEART AND VASCULAR STRUCTURES: Heart normal in size. Normal vasculature. BONES: No acute findings. HARDWARE: None in the chest. OTHER: No other significant finding. IMPRESSION: COPD. NO ACUTE RADIOGRAPHIC FINDING IN THE CHEST. TECHNICAL DOCUMENTATION: JOB ID: [id number] [employer]- All Rights Reserved Reading location - IP/workstation name: [email or web address]
[2017-12-24] MEDS ORDERED: BUPIVACAINE HCL/DEX-WATER/PF 15 MG/2 ML AMPULE ONE (10:57)
[2017-12-24] MEDS ORDERED: FENTANYL CITRATE INJ/PF 100 MCG/2 ML AMPUL ONE (10:58)
[2017-12-24] MEDS ORDERED: ONDANSETRON HCL INJ/PF 4 MG/2 ML SDV ONE ×2 (10:58→13:07)
[2017-12-24] MEDS ORDERED: MIDAZOLAM 2 MG/2 ML INJ ONE (10:58)
[2017-12-24] MEDS ORDERED: ONDANSETRON HCL INJ/PF 4 MG/2 ML SDV IV PRN ×2 (11:08→11:53)
[2017-12-24] MEDS ORDERED: DIPHENHYDRAMINE HCL 50 MG/ML VIAL IV PRN (11:08)
[2017-12-24] MEDS ORDERED: FENTANYL CITRATE INJ/PF 100 MCG/2 ML AMPUL IV PRN ×6 (11:08→11:53)
[2017-12-24] MEDS ORDERED: BUPIVACAINE INJ/PF LIPOSOME/PF 266 MG/20 ML SDV ONE (11:11)
[2017-12-24] MEDS ORDERED: KETOROLAC TROMETHAMINE INJ/PF 30 MG/1 ML SDV IV PRN (12:28)
--- NOTE | 2017-12-24 12:34 | Operative Report ---
Operative Report DATE OF SURGERY: 12/24/17 PREOPERATIVE DIAGNOSIS: 1. Acute appendicitis. 2. Status post gastrostomy tube placement. 3. ALS POSTOPERATIVE DIAGNOSIS: Same OPERATION: 1. Open appendectomy. 2. Replacement of gastrostomy tube SURGEON: GABBI SENA ANESTHESIA: Spinal TISSUE REMOVED OR ALTERED: Appendix COMPLICATIONS: None ESTIMATED BLOOD LOSS: Scant INTRAOPERATIVE FINDINGS: See below PROCEDURE: The patient was taken to the preop holding her to the main operating room where spinal anesthesia was induced. The patient was placed in the supine position, arms flexed and tucked out of the field. The previously placed gastrostomy tube was exposed, balloon deflated of 5 cc of saline gastrostomy tube removed from the patient and the gastrotomy site covered with a sterile self-sealing dressing The abdomen was then prepped and draped in sterile fashion Surgical plan surgical timeout were conducted. After examining the patient's abdominal wall anatomy, I felt that a standard McBurney's type incision would be appropriate. The skin was Rosalba times with quarter percent Marcaine briefly, and a standard slightly curvilinear McBurney' s type incision was made in the right lower quadrant. Skin subcutaneous tissue and the fascia of the anterior dominant wall including the external oblique, internal oblique and transversalis fascia were all divided as encountered. Once opening of the peritoneal cavity, the patient did spontaneously eviscerate the right colon and cecum. A small adhesion may have been divided in the process. Once the cecum was in the field, we did be related the base of the appendix into the field of view. The base of the appendix was amputated between clamps. We now took down the mesoappendix with a series of hemostats. The appendix was amputated completely from the patient and passed off to pathology Mesenteric vascular pedicles were ligated with 3-0 Vicryl suture in the base of the appendix closed with a locking 3-0 PDS suture. The mucosal exposed of the stump surface was cauterized. There was no evidence of bleeding or purulent drainage. The appendix itself appeared to be acted and inflamed and very tight. There is no evidence of perforation. The right colon was allowed to retract back into the peritoneal space. The peritoneum was closed with 0 Vicryl and the internal and external oblique muscle was closed with 0 PDS suture. Skin approximated with laury and sterile dressing applied. A new gastrostomy tube 20 English was placed in the position, balloon insufflated with 4-1/2 cc of saline Patient taught procedure well, taken recovery in stable condition.
[2017-12-24] MEDS ORDERED: NALOXONE HCL INJ/PF 0.4 MG/1 ML SDV ONE (12:48)
[2017-12-24] MEDS ORDERED: PHENYLEPHRINE HCL INJ/PF 10 MG/1 ML SDV ONE (14:10)
[2017-12-25] MEDS: METRONIDAZOLE 500 MG/NS RTU 500 MG/100 ML RTUPB IV SCH ×3 (02:54→18:07)
[2017-12-25] MEDS: RINGERS SOLUTION,LACTATED 1,000 ML IV PRN (09:47)
[2017-12-25] MEDS ORDERED: ENALAPRILAT DIHYDRATE INJ/PF 1.25 MG/1 ML SDV IV PRN (13:27)
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
[2017-12-25] MEDS: NORMAL SALINE 1000 ML 1,000 ML IV PRN (18:10)
--- NOTE | 2017-12-25 21:17 | PDOC PROGRESS REPORT ---
Subjective Progress Note for:: 12/25/17 Subjective:: no obvious pains Reason For Visit: ACUTE APPENDICITIS Physical Exam Vital Signs: Temp Pulse Resp BP Pulse Ox 98.4 F 100 18 143/61 H 92 12/25/17 19:27 12/25/17 19:27 12/25/17 19:27 12/25/17 19:27 12/25/17 19:27 Intake & Output 12/24/17 12/25/17 12/26/17 06:59 06:59 06:59 Intake Total 3450 1200 Output Total 1620 573 Balance 1830 627 Weight 56.5 kg Exam: appendectomy incision is clean and dry Results Impressions: Acute Abdomen Series 12/24/17 05:16 IMPRESSION: No acute findings. Abdomen/Pelvis CT 12/24/17 06:46 IMPRESSION: Mildly dilated appendix which is along the right upper quadrant with multiple appendicoliths. No definite periappendiceal inflammatory changes or evidence of a perforation or abscess/phlegmon formation. This may be due to an early acute uncomplicated appendicitis. Ground glass opacities along the dependent portion of the right lung base, which may represent atelectasis or pneumonia. TECHNICAL DOCUMENTATION: Quality ID # 436: Final reports with documentation of one or more dose reduction techniques (e.g., Automated exposure control, adjustment of the mA and/or kV according to patient size, use of iterative reconstruction technique) 2010 [employer]- All Rights Reserved Chest X-Ray 12/24/17 09:30 IMPRESSION: COPD. NO ACUTE RADIOGRAPHIC FINDING IN THE CHEST. Assessment & Plan - Time Time Spent with patient: 15-24 minutes - Plan Summary Plan Summary: Once evaluated by dietitian and gastrostomy feedings resumed and patient tolerates it then can be discharged.
[2017-12-25] MEDS: KETOROLAC TROMETHAMINE INJ/PF 30 MG/1 ML SDV IV PRN (23:43)
[2017-12-26] MEDS: METRONIDAZOLE 500 MG/NS RTU 500 MG/100 ML RTUPB IV SCH ×3 (02:03→18:18)
[2017-12-26] MEDS: NORMAL SALINE 1000 ML 1,000 ML IV PRN (05:10)
[2017-12-26] MEDS: LANSOPRAZOLE 30 MG TAB.RAP.DR PO SCH (05:10)
[2017-12-26 05:26] LABS: ABSOLUTE EOSINOPHILS # (AUTO) 0.1 10^3/uL (0.0-0.6); ABSOLUTE LYMPHOCYTES (AUTO) 1.4 10^3/uL (0.5-4.7); ABSOLUTE MONOCYTES (AUTO) 0.6 10^3/uL (0.1-1.4); ABSOLUTE NEUT (AUTO) 7.8 10^3/uL (1.7-8.2); BASOPHILS % (AUTO) 0.2 % (0-2); EOSINOPHILS % (AUTO) 0.6 % (0-6); HEMATOCRIT 27.2 % (37.9-51.0); MEAN CORPUSCULAR HEMOGLOBIN 32.2 pg (27.0-33.4); MEAN CORPUSCULAR HGB CONC 35.1 g/dL (32.0-36.0); MEAN CORPUSCULAR VOLUME 92 fl (80-97); MONOCYTES % (AUTO) 5.7 % (3-13); PLATELET COUNT 159 10^3/uL (150-450); RED BLOOD COUNT 2.96 10^6/uL (4.35-5.55); RED CELL DISTRIBUTION WIDTH 14.9 % (11.5-14.0); SEGMENTED NEUTROPHILS % (AUTO) 79.5 % (42-78); TOTAL CELLS COUNTED % (AUTO) 100 %; WHITE BLOOD COUNT 9.8 10^3/uL (4.0-10.5)
[2017-12-26 05:48] LABS: ALANINE AMINOTRANSFERASE 25 U/L (21-72); ALBUMIN 2.7 g/dL (3.5-5.0); ALKALINE PHOSPHATASE 79 U/L (38-126); ANION GAP 11 (5-19); ASPARTATE AMINO TRANSFERASE 25 U/L (17-59); BILIRUBIN,DIRECT 0.4 mg/dL (0.0-0.4); BILIRUBIN,TOTAL 0.6 mg/dL (0.2-1.3); BLOOD UREA NITROGEN 18 mg/dL (7-20); CALCIUM 8.6 mg/dL (8.4-10.2); CARBON DIOXIDE 27 mmol/L (22-30); CHLORIDE 102 mmol/L (98-107); GLUCOSE 105 mg/dL (75-110); POTASSIUM 3.7 mmol/L (3.6-5.0); SODIUM 140.3 mmol/L (137-145); TOTAL PROTEIN 5.7 g/dL (6.3-8.2)
[2017-12-26 05:56] LABS: HEMOGLOBIN 9.5 g/dL (13.5-17.0)
[2017-12-26] MEDS: KETOROLAC TROMETHAMINE INJ/PF 30 MG/1 ML SDV IV PRN ×2 (07:21→14:23)
[2017-12-26] MEDS: OXYCODONE-ACETAMINOPHEN 5-325 MG TABLET PEG SCH ×2 (14:23→20:05)
--- NOTE | 2017-12-26 18:14 | PDOC PROGRESS REPORT ---
Subjective Progress Note for:: 12/26/17 Subjective:: Family at bedside expressed concern about patient's chronic pain and constipation. His home medications include Oxycodone 15 mg po q 6hours. No chest pain or difficulty with breathing. Tolerating tube feeding on bolus regimen with [employer] formulary. Reason For Visit: ACUTE APPENDICITIS Physical Exam Vital Signs: Temp Pulse Resp BP Pulse Ox 98.7 F 89 18 146/62 H 96 12/26/17 16:23 12/26/17 16:23 12/26/17 16:23 12/26/17 16:23 12/26/17 16:23 Intake & Output 12/25/17 12/26/17 12/27/17 06:59 06:59 06:59 Intake Total 3450 3080 Output Total 1620 1673 900 Balance 1830 1407 -900 Weight 56.5 kg 64.5 kg General appearance: PRESENT: no acute distress Head exam: PRESENT: atraumatic, normocephalic Eye exam: PRESENT: conjunctiva pink, EOMI, PERRLA. ABSENT: scleral icterus Ear exam: PRESENT: normal external ear exam Mouth exam: PRESENT: moist Respiratory exam: PRESENT: clear to auscultation sandip Cardiovascular exam: PRESENT: RRR. ABSENT: diastolic murmur, rubs, systolic murmur Vascular exam: ABSENT: pallor GI/Abdominal exam: PRESENT: normal bowel sounds, soft, other - PEG and surgical sites okay.. ABSENT: distended, guarding, mass, organolmegaly, rebound, tenderness Rectal exam: PRESENT: deferred Extremities exam: ABSENT: pedal edema Musculoskeletal exam: PRESENT: deformity - due to multiple joints involvement with arthritis Neurological exam: PRESENT: alert, awake - limited in verbal response but made appropriate gestures. Psychiatric exam: ABSENT: agitated, anxious Skin exam: PRESENT: dry, warm, other - surgical instrumentation sites dressings are satisfactory. Results Laboratory Results: 12/26/17 04:06 12/26/17 04:06 12/26/17 12/26/17 04:06 04:06 WBC 9.8 RBC 2.96 L Hgb 9.5 L D Hct 27.2 L MCV 92 MCH 32.2 MCHC 35.1 RDW 14.9 H Plt Count 159 Seg Neutrophils % 79.5 H Lymphocytes % 14.0 Monocytes % 5.7 Eosinophils % 0.6 Basophils % 0.2 Absolute Neutrophils 7.8 Absolute Lymphocytes 1.4 Absolute Monocytes 0.6 Absolute Eosinophils 0.1 Absolute Basophils 0.0 Sodium 140.3 Potassium 3.7 Chloride 102 Carbon Dioxide 27 Anion Gap 11 BUN 18 Creatinine 0.65 Est GFR ( Amer) > 60 Est GFR (Non-Af Amer) > 60 Glucose 105 Calcium 8.6 Total Bilirubin 0.6 AST 25 ALT 25 Alkaline Phosphatase 79 Total Protein 5.7 L Albumin 2.7 L Impressions: Acute Abdomen Series 12/24/17 05:16 IMPRESSION: No acute findings. Abdomen/Pelvis CT 12/24/17 06:46 IMPRESSION: Mildly dilated appendix which is along the right upper quadrant with multiple appendicoliths. No definite periappendiceal inflammatory changes or evidence of a perforation or abscess/phlegmon formation. This may be due to an early acute uncomplicated appendicitis. Ground glass opacities along the dependent portion of the right lung base, which may represent atelectasis or pneumonia. TECHNICAL DOCUMENTATION: Quality ID # 436: Final reports with documentation of one or more dose reduction techniques (e.g., Automated exposure control, adjustment of the mA and/or kV according to patient size, use of iterative reconstruction technique) 2010 [employer]- All Rights Reserved Chest X-Ray 12/24/17 09:30 IMPRESSION: COPD. NO ACUTE RADIOGRAPHIC FINDING IN THE CHEST. Assessment & Plan - Diagnosis (1) Acute appendicitis Qualifiers: Acute appendicitis type: unspecified acute appendicitis type Qualified Code (s): K35.80 - Unspecified acute appendicitis Is this a current diagnosis for this admission?: Yes (2) ALS (amyotrophic lateral sclerosis) Is this a current diagnosis for this admission?: Yes (3) HTN (hypertension) Qualifiers: Hypertension type: essential hypertension Qualified Code(s): I10 - Essential (primary) hypertension Is this a current diagnosis for this admission?: Yes (4) Asthma with chronic obstructive pulmonary disease (COPD) Is this a current diagnosis for this admission?: Yes (5) Liver cirrhosis Qualifiers: Hepatic cirrhosis type: alcoholic cirrhosis Ascites presence: unspecified Qualified Code(s): K70.30 - Alcoholic cirrhosis of liver without ascites Is this a current diagnosis for this admission?: Yes (6) Chronic pain syndrome Is this a current diagnosis for this admission?: Yes Plan: See consulting attending physician orders. (7) Chronic use of opiate drugs therapeutic purposes Is this a current diagnosis for this admission?: Yes Plan: Restart on his home mediation management. D/C IV Ketorolac due to possible side effects. (8) Constipation due to opioid therapy Is this a current diagnosis for this admission?: Yes Plan: Start on Miralax 17 gm via PEG daily and adjust dose as needed for his chronic opiate use and possible source of his constipation. - Time Time Spent with patient: 25-34 minutes Medications reviewed and adjusted accordingly: Yes Anticipated discharge: SNF - for prison placement Within: Other - Inpatient Certification Based on my medical assessment, after consideration of the patient's comorbidities, presenting symptoms, or acuity I expect that the services needed warrant INPATIENT care.: Yes I certify that my determination is in accordance with my understanding of Medicare's requirements for reasonable and necessary INPATIENT services [42 CFR 412.3e].: Yes Medical Necessity: Need Close Monitoring Due to Risk of Patient Decompensation, Need For IV Fluids, Need for Pain Control, Risk of Complication if Not Cared For in Hospital Post Hospital Care: D/C or Transfer Summary - Plan Summary Plan Summary: See medical consulting physician orders. Continue efforts at placement in SNF.
[2017-12-26] MEDS: POLYETHYLENE GLYCOL 3350 POWDER 17 GM/1 PACKET PO SCH (19:58)
[2017-12-26] MEDS: FLUTICASONE/SALMETEROL DISKUS 500-50 MCG/DOSE IH SCH (21:50)
[2017-12-26] MEDS: OXYCODONE HCL IR 5 MG TABLET PO PRN (21:50)
[2017-12-26] MEDS: AMITRIPTYLINE HCL 50 MG TABLET PO SCH (21:50)
[2017-12-26] MEDS ORDERED: RILUZOLE 50 MG PO SCH (22:00)
[2017-12-26] MEDS: ALBUTEROL SULFATE 0.083% NEB 2.5 MG/3 ML AMPUL NEB SCH (23:54)
[2017-12-27] MEDS: METRONIDAZOLE 500 MG/NS RTU 500 MG/100 ML RTUPB IV SCH ×3 (01:59→17:44)
[2017-12-27] MEDS: ALBUTEROL SULFATE 0.083% NEB 2.5 MG/3 ML AMPUL NEB SCH ×4 (02:40→19:46)
[2017-12-27] MEDS: LANSOPRAZOLE 30 MG TAB.RAP.DR PO SCH (06:32)
[2017-12-27] MEDS ORDERED: (PENDING PHARMACY ID) (Tiotropium Bromide [Spiriva Respimat] 2 PUFF) IH SCH (08:00)
[2017-12-27 09:28] LABS: ABSOLUTE LYMPHOCYTES (AUTO) 0.8 10^3/uL (0.5-4.7); ABSOLUTE MONOCYTES (AUTO) 0.6 10^3/uL (0.1-1.4); ABSOLUTE NEUT (AUTO) 6.6 10^3/uL (1.7-8.2); BASOPHILS % (AUTO) 0.1 % (0-2); EOSINOPHILS % (AUTO) 0.4 % (0-6); HEMATOCRIT 30.5 % (37.9-51.0); HEMOGLOBIN 10.4 g/dL (13.5-17.0); LYMPHOCYTES % (AUTO) 9.4 % (13-45); MEAN CORPUSCULAR HEMOGLOBIN 31.7 pg (27.0-33.4); MEAN CORPUSCULAR HGB CONC 34.1 g/dL (32.0-36.0); MEAN CORPUSCULAR VOLUME 93 fl (80-97); MONOCYTES % (AUTO) 7.6 % (3-13); PLATELET COUNT 188 10^3/uL (150-450); RED BLOOD COUNT 3.27 10^6/uL (4.35-5.55); RED CELL DISTRIBUTION WIDTH 14.8 % (11.5-14.0); SEGMENTED NEUTROPHILS % (AUTO) 82.5 % (42-78); TOTAL CELLS COUNTED % (AUTO) 100 %; WHITE BLOOD COUNT 7.9 10^3/uL (4.0-10.5)
--- NOTE | 2017-12-27 09:39 | RADIOLOGY REPORT (SQ) ---
EXAM DESCRIPTION: CHEST SINGLE VIEW COMPLETED DATE/TIME: 12/27/2017 9:20 am REASON FOR STUDY: Worsening difficulty with breathing COMPARISON: 12/24/2017 NUMBER OF VIEWS: One view. TECHNIQUE: Single frontal radiographic view of the chest acquired. LIMITATIONS: None. FINDINGS: LUNGS AND PLEURA: No opacities, masses or pneumothorax. No pleural effusion. Attenuated bl ood vessels and flattened iona-diaphragms. MEDIASTINUM AND HILAR STRUCTURES: No masses. Contour normal. HEART AND VASCULAR STRUCTURES: Heart normal in size. Normal vasculature. BONES: No acute findings. HARDWARE: None in the chest. OTHER: No other significant finding. IMPRESSION: COPD. NO ACUTE RADIOGRAPHIC FINDING IN THE CHEST. TECHNICAL DOCUMENTATION: JOB ID: [id number] [employer]- All Rights Reserved Reading location - IP/workstation name: [email or web address]
[2017-12-27] MEDS ORDERED: FERROUS SULFATE PO SCH (10:00)
[2017-12-27] MEDS: FERROUS SULFATE LIQUID 300 MG/5 ML UDC PO SCH (11:27)
[2017-12-27] MEDS: POLYETHYLENE GLYCOL 3350 POWDER 17 GM/1 PACKET PO SCH (11:28)
[2017-12-27] MEDS: BACLOFEN 10 MG TABLET PO SCH ×2 (11:29→17:20)
[2017-12-27] MEDS: GLYCOPYRROLATE 1 MG TABLET PO SCH ×3 (11:30→17:21)
[2017-12-27 12:07] LABS: ARTERIAL BLOOD BASE EXCESS 3.5 mmol/L; ARTERIAL BLOOD FIO2 4L; ARTERIAL BLOOD H2CO3 1.27 mmol/L (1.05-1.35); ARTERIAL BLOOD O2 SATURATION 94.8 % (94-98); ARTERIAL BLOOD PCO2 42.2 mmHg (35-45); ARTERIAL BLOOD PH 7.44 (7.35-7.45); ARTERIAL BLOOD PO2 71.1 mmHg (80-100); ARTERIAL BLOOD TOTAL CO2 29.3 mmol/L (23-27)
[2017-12-27] MEDS: OXYCODONE HCL IR 5 MG TABLET PO PRN ×2 (12:28→18:52)
[2017-12-27] MEDS: TIOTROPIUM BROMIDE DPI 5 CAP/KIT (18 MCG/CAP) IH SCH (13:09)
[2017-12-27] MEDS: FLUTICASONE/SALMETEROL DISKUS 500-50 MCG/DOSE IH SCH ×2 (13:09→21:45)
[2017-12-27] MEDS ORDERED: BISACODYL 10 MG SUPP.RECT PR ONE (14:30)
--- NOTE | 2017-12-27 17:39 | PDOC PROGRESS REPORT ---
Subjective Progress Note for:: 12/27/17 Subjective:: There is nursing and respiratory personnel report of change in patient interaction with concern about his breathing. No expressed chest pain or reported fever. No bowel movement for since admission as per family. Patient has been on chronic opiate therapy prior to admission. Remain on PEG tube feeding. Reason For Visit: ACUTE APPENDICITIS Physical Exam Vital Signs: Temp Pulse Resp BP Pulse Ox 98.2 F 100 19 140/69 H 95 12/27/17 16:05 12/27/17 16:05 12/27/17 16:05 12/27/17 16:05 12/27/17 16:05 Intake & Output 12/26/17 12/27/17 12/28/17 06:59 06:59 06:59 Intake Total 3080 1300 100 Output Total 1673 1500 600 Balance 1407 -200 -500 Weight 64.5 kg 60 kg Physical Exam: General appearance: PRESENT: no acute distress Head exam: PRESENT: atraumatic, normocephalic Eye exam: PRESENT: conjunctiva pink, EOMI, PERRLA. ABSENT: scleral icterus Ear exam: PRESENT: normal external ear exam Mouth exam: PRESENT: moist Respiratory exam: PRESENT: clear to auscultation sandip Cardiovascular exam: PRESENT: RRR. ABSENT: diastolic murmur, rubs, systolic murmur Vascular exam: ABSENT: pallor GI/Abdominal exam: PRESENT: normal bowel sounds, firm probable due to patient grunting action other - PEG and surgical sites okay.. ABSENT: distended, guarding, mass, organomegaly, rebound, tenderness Rectal exam: PRESENT: deferred Extremities exam: ABSENT: pedal edema Musculoskeletal exam: PRESENT: deformity - due to multiple joints involvement with arthritis Neurological exam: PRESENT: alert, awake - limited in verbal response but made appropriate gestures. Psychiatric exam: ABSENT: agitated, anxious Skin exam: PRESENT: dry, warm, other - surgical instrumentation sites dressings are satisfactory Results Laboratory Results: 12/27/17 09:16 12/26/17 04:06 12/27/17 12/27/17 09:16 11:50 WBC 7.9 RBC 3.27 L Hgb 10.4 L Hct 30.5 L MCV 93 MCH 31.7 MCHC 34.1 RDW 14.8 H Plt Count 188 Seg Neutrophils % 82.5 H Lymphocytes % 9.4 L Monocytes % 7.6 Eosinophils % 0.4 Basophils % 0.1 Absolute Neutrophils 6.6 Absolute Lymphocytes 0.8 Absolute Monocytes 0.6 Absolute Eosinophils 0.0 Absolute Basophils 0.0 Carbonic Acid 1.27 HCO3/H2CO3 Ratio 22:1 ABG pH 7.44 ABG pCO2 42.2 ABG pO2 71.1 L ABG HCO3 28.0 H ABG O2 Saturation 94.8 ABG Base Excess 3.5 FiO2 4L Impressions: Acute Abdomen Series 12/24/17 05:16 IMPRESSION: No acute findings. Abdomen/Pelvis CT 12/24/17 06:46 IMPRESSION: Mildly dilated appendix which is along the right upper quadrant with multiple appendicoliths. No definite periappendiceal inflammatory changes or evidence of a perforation or abscess/phlegmon formation. This may be due to an early acute uncomplicated appendicitis. Ground glass opacities along the dependent portion of the right lung base, which may represent atelectasis or pneumonia. TECHNICAL DOCUMENTATION: Quality ID # 436: Final reports with documentation of one or more dose reduction techniques (e.g., Automated exposure control, adjustment of the mA and/or kV according to patient size, use of iterative reconstruction technique) 2010 [employer]- All Rights Reserved Chest X-Ray 12/27/17 00:00 IMPRESSION: COPD. NO ACUTE RADIOGRAPHIC FINDING IN THE CHEST. Assessment & Plan - Diagnosis (1) Acute appendicitis Qualifiers: Acute appendicitis type: unspecified acute appendicitis type Qualified Code (s): K35.80 - Unspecified acute appendicitis Is this a current diagnosis for this admission?: Yes (2) ALS (amyotrophic lateral sclerosis) Is this a current diagnosis for this admission?: Yes (3) HTN (hypertension) Qualifiers: Hypertension type: essential hypertension Qualified Code(s): I10 - Essential (primary) hypertension Is this a current diagnosis for this admission?: Yes (4) Asthma with chronic obstructive pulmonary disease (COPD) Is this a current diagnosis for this admission?: Yes (5) Liver cirrhosis Qualifiers: Hepatic cirrhosis type: alcoholic cirrhosis Ascites presence: unspecified Qualified Code(s): K70.30 - Alcoholic cirrhosis of liver without ascites Is this a current diagnosis for this admission?: Yes (6) Chronic pain syndrome Is this a current diagnosis for this admission?: Yes (7) Chronic use of opiate drugs therapeutic purposes Is this a current diagnosis for this admission?: Yes (8) Constipation due to opioid therapy Is this a current diagnosis for this admission?: Yes - Time Time Spent with patient: 25-34 minutes Medications reviewed and adjusted accordingly: Yes Anticipated discharge: SNF - awaiting prison placement Within: Other - Inpatient Certification Based on my medical assessment, after consideration of the patient's comorbidities, presenting symptoms, or acuity I expect that the services needed warrant INPATIENT care.: Yes I certify that my determination is in accordance with my understanding of Medicare's requirements for reasonable and necessary INPATIENT services [42 CFR 412.3e].: Yes Medical Necessity: Need Close Monitoring Due to Risk of Patient Decompensation, Need For IV Fluids, Need For Continuous Telemetry Monitoring, Need for Pain Control, Need for IV Antibiotics, Risk of Complication if Not Cared For in Hospital Post Hospital Care: D/C or Transfer Summary - Plan Summary Plan Summary: Obtain CBC with diff, ABG, chest X ray for further evaluation. Maintain on all current medication management. Not candidate for Amitiza due to peg tube feeding and other opiate induced constipation medication are not on formulary in this hospital. Continue Miralax with use of Doculax GA if needed.
--- NOTE | 2017-12-27 19:07 | RADIOLOGY REPORT (SQ) ---
EXAM DESCRIPTION: ABDOMEN 2 VIEWS COMPLETED DATE/TIME: 12/27/2017 6:36 pm REASON FOR STUDY: DISTENSION FROM ABDOMEN COMPARISON: None. NUMBER OF VIEWS: Two views. TECHNIQUE: Supine and erect/decubitus radiographic images of the abdomen acquired. LIMITATIONS: None. FINDINGS: FREE AIR: None. No abnormal gas collections. LUNG BASES: Clear. BOWEL GAS PATTERN: There is considerable residual stool in the descending colon, sigmoid, and rectum. CALCIFICATIONS: No suspicious calcifications. SOFT TISSUES: No gross mass or suggestion of organomegaly. HARDWARE: Skin laury in the right lower quadrant. BONES: No acute fracture. No worrisome bone lesions. OTHER: No other significant finding. IMPRESSION: There is air and stool in the colon. Nonspecific abdomen. TECHNICAL DOCUMENTATION: JOB ID: [id number] [employer]- All Rights Reserved Reading location - IP/workstation name: [email or web address]
--- NOTE | 2017-12-27 21:09 | PDOC PROGRESS REPORT ---
Subjective Progress Note for:: 12/27/17 Subjective:: Patient does not speak and does not seem to be in any distress however family was concerned about his abdominal distention. There has been no emesis. Reason For Visit: ACUTE APPENDICITIS Physical Exam Vital Signs: Temp Pulse Resp BP Pulse Ox 98.2 F 100 19 140/69 H 95 12/27/17 16:05 12/27/17 16:05 12/27/17 16:05 12/27/17 16:05 12/27/17 16:05 Intake & Output 12/26/17 12/27/17 12/28/17 06:59 06:59 06:59 Intake Total 3080 1300 200 Output Total 1673 1500 600 Balance 1407 -200 -400 Weight 64.5 kg 60 kg General appearance: PRESENT: no acute distress Respiratory exam: PRESENT: clear to auscultation sandip Cardiovascular exam: PRESENT: RRR GI/Abdominal exam: PRESENT: other - Distended, wound clean dry and intact with no drainage. Unable to determine tenderness but no obvious peritoneal signs. No apparent distress with palpation. Results Laboratory Results: 12/27/17 09:16 12/26/17 04:06 12/27/17 12/27/17 09:16 11:50 WBC 7.9 RBC 3.27 L Hgb 10.4 L Hct 30.5 L MCV 93 MCH 31.7 MCHC 34.1 RDW 14.8 H Plt Count 188 Seg Neutrophils % 82.5 H Lymphocytes % 9.4 L Monocytes % 7.6 Eosinophils % 0.4 Basophils % 0.1 Absolute Neutrophils 6.6 Absolute Lymphocytes 0.8 Absolute Monocytes 0.6 Absolute Eosinophils 0.0 Absolute Basophils 0.0 Carbonic Acid 1.27 HCO3/H2CO3 Ratio 22:1 ABG pH 7.44 ABG pCO2 42.2 ABG pO2 71.1 L ABG HCO3 28.0 H ABG O2 Saturation 94.8 ABG Base Excess 3.5 FiO2 4L Impressions: Acute Abdomen Series 12/24/17 05:16 IMPRESSION: No acute findings. Abdomen/Pelvis CT 12/24/17 06:46 IMPRESSION: Mildly dilated appendix which is along the right upper quadrant with multiple appendicoliths. No definite periappendiceal inflammatory changes or evidence of a perforation or abscess/phlegmon formation. This may be due to an early acute uncomplicated appendicitis. Ground glass opacities along the dependent portion of the right lung base, which may represent atelectasis or pneumonia. TECHNICAL DOCUMENTATION: Quality ID # 436: Final reports with documentation of one or more dose reduction techniques (e.g., Automated exposure control, adjustment of the mA and/or kV according to patient size, use of iterative reconstruction technique) 2010 [employer]- All Rights Reserved Abdomen X-Ray 12/27/17 00:00 IMPRESSION: There is air and stool in the colon. Nonspecific abdomen. Chest X-Ray 12/27/17 00:00 IMPRESSION: COPD. NO ACUTE RADIOGRAPHIC FINDING IN THE CHEST. Assessment & Plan - Diagnosis (1) Constipation Is this a current diagnosis for this admission?: Yes Plan: Patient has history of chronic constipation and now worsening postoperatively. He does not demonstrate any signs of abdominal sepsis. Recommend not resuming his tube feeds until his constipation has markedly improved. Enemas. Keep G- tube to straight drainage until his abdominal distention improves.
[2017-12-27] MEDS ORDERED: POLYETHYLENE GLYCOL 3350 POWDER 17 GM/1 PACKET PO ONE ×2 (21:30→22:00)
[2017-12-27] MEDS: AMITRIPTYLINE HCL 50 MG TABLET PO SCH (21:45)
[2017-12-28] MEDS: METRONIDAZOLE 500 MG/NS RTU 500 MG/100 ML RTUPB IV SCH ×3 (01:10→17:26)
[2017-12-28] MEDS: ALBUTEROL SULFATE 0.083% NEB 2.5 MG/3 ML AMPUL NEB SCH ×4 (02:43→20:00)
[2017-12-28] MEDS: LANSOPRAZOLE 30 MG TAB.RAP.DR PO SCH (05:23)
[2017-12-28] MEDS ORDERED: NA PHOS,M-B/NA PHOS,DI-BA (ADULT) 133 ML ENEMA PR ONE ×3 (06:00→10:00)
--- NOTE | 2017-12-28 09:03 | PDOC PROGRESS REPORT ---
Subjective Progress Note for:: 12/28/17 Subjective:: Patient has minimal response to bid Miralax, Dulcolax suppository and soap sub enema so far. PEG tube bilious drainage. No vomiting. No reported fever. No chest pain and breathing remain satisfactory. Reason For Visit: ACUTE APPENDICITIS Physical Exam Vital Signs: Temp Pulse Resp BP Pulse Ox 99.6 F 113 H 19 158/70 H 99 12/28/17 08:02 12/28/17 08:02 12/28/17 08:02 12/28/17 08:02 12/28/17 08:02 Intake & Output 12/27/17 12/28/17 12/29/17 06:59 06:59 06:59 Intake Total 1300 300 Output Total 1500 1200 Balance -200 -900 Weight 60 kg 61.3 kg Physical Exam: General appearance: PRESENT: no acute distress Head exam: PRESENT: atraumatic, normocephalic Eye exam: PRESENT: conjunctiva pink, EOMI, PERRLA. ABSENT: scleral icterus Ear exam: PRESENT: normal external ear exam Mouth exam: PRESENT: moist Respiratory exam: PRESENT: clear to auscultation sandip Cardiovascular exam: PRESENT: RRR. ABSENT: diastolic murmur, rubs, systolic murmur Vascular exam: ABSENT: pallor GI/Abdominal exam: PRESENT: normal bowel sounds, firm, PEG and surgical sites okay. PEG drainage to gravity. ABSENT: guarding, mass, organomegaly, rebound, tenderness Extremities exam: ABSENT: pedal edema Musculoskeletal exam: PRESENT: deformity - due to multiple joints involvement with arthritis Neurological exam: PRESENT: alert, awake - limited in verbal response but made appropriate gestures. Psychiatric exam: ABSENT: agitated, anxious Skin exam: PRESENT: dry, warm, other - surgical instrumentation sites dressings are satisfactory Results Laboratory Results: 12/27/17 09:16 12/26/17 04:06 12/27/17 12/27/17 09:16 11:50 WBC 7.9 RBC 3.27 L Hgb 10.4 L Hct 30.5 L MCV 93 MCH 31.7 MCHC 34.1 RDW 14.8 H Plt Count 188 Seg Neutrophils % 82.5 H Lymphocytes % 9.4 L Monocytes % 7.6 Eosinophils % 0.4 Basophils % 0.1 Absolute Neutrophils 6.6 Absolute Lymphocytes 0.8 Absolute Monocytes 0.6 Absolute Eosinophils 0.0 Absolute Basophils 0.0 Carbonic Acid 1.27 HCO3/H2CO3 Ratio 22:1 ABG pH 7.44 ABG pCO2 42.2 ABG pO2 71.1 L ABG HCO3 28.0 H ABG O2 Saturation 94.8 ABG Base Excess 3.5 FiO2 4L Impressions: Acute Abdomen Series 12/24/17 05:16 IMPRESSION: No acute findings. Abdomen/Pelvis CT 12/24/17 06:46 IMPRESSION: Mildly dilated appendix which is along the right upper quadrant with multiple appendicoliths. No definite periappendiceal inflammatory changes or evidence of a perforation or abscess/phlegmon formation. This may be due to an early acute uncomplicated appendicitis. Ground glass opacities along the dependent portion of the right lung base, which may represent atelectasis or pneumonia. TECHNICAL DOCUMENTATION: Quality ID # 436: Final reports with documentation of one or more dose reduction techniques (e.g., Automated exposure control, adjustment of the mA and/or kV according to patient size, use of iterative reconstruction technique) 2010 [employer]- All Rights Reserved Abdomen X-Ray 12/27/17 00:00 IMPRESSION: There is air and stool in the colon. Nonspecific abdomen. Chest X-Ray 12/27/17 00:00 IMPRESSION: COPD. NO ACUTE RADIOGRAPHIC FINDING IN THE CHEST. Assessment & Plan - Diagnosis (1) Acute appendicitis Qualifiers: Acute appendicitis type: unspecified acute appendicitis type Qualified Code (s): K35.80 - Unspecified acute appendicitis Is this a current diagnosis for this admission?: Yes (2) ALS (amyotrophic lateral sclerosis) Is this a current diagnosis for this admission?: Yes (3) HTN (hypertension) Qualifiers: Hypertension type: essential hypertension Qualified Code(s): I10 - Essential (primary) hypertension Is this a current diagnosis for this admission?: Yes (4) Asthma with chronic obstructive pulmonary disease (COPD) Is this a current diagnosis for this admission?: Yes (5) Liver cirrhosis Qualifiers: Hepatic cirrhosis type: alcoholic cirrhosis Ascites presence: unspecified Qualified Code(s): K70.30 - Alcoholic cirrhosis of liver without ascites Is this a current diagnosis for this admission?: Yes (6) Chronic pain syndrome Is this a current diagnosis for this admission?: Yes (7) Chronic use of opiate drugs therapeutic purposes Is this a current diagnosis for this admission?: Yes (8) Constipation due to opioid therapy Is this a current diagnosis for this admission?: Yes - Time Time Spent with patient: 25-34 minutes Medications reviewed and adjusted accordingly: Yes Anticipated discharge: SNF Within: Other - Inpatient Certification Based on my medical assessment, after consideration of the patient's comorbidities, presenting symptoms, or acuity I expect that the services needed warrant INPATIENT care.: Yes I certify that my determination is in accordance with my understanding of Medicare's requirements for reasonable and necessary INPATIENT services [42 CFR 412.3e].: Yes Medical Necessity: Need Close Monitoring Due to Risk of Patient Decompensation, Need For IV Fluids, Need for Pain Control, Need for IV Antibiotics, Risk of Complication if Not Cared For in Hospital Post Hospital Care: D/C or Transfer Summary - Plan Summary Plan Summary: Continue current medication management. We will repeat abdominal X ray with after adequate bowel movement. Awaiting intermediate SNF placement.
--- NOTE | 2017-12-28 10:53 | PDOC PROGRESS REPORT ---
Subjective Progress Note for:: 12/28/17 Subjective:: No apparent distress. Reason For Visit: ACUTE APPENDICITIS Physical Exam Vital Signs: Temp Pulse Resp BP Pulse Ox 99.6 F 113 H 19 158/70 H 99 12/28/17 08:02 12/28/17 08:02 12/28/17 08:02 12/28/17 08:02 12/28/17 08:02 Intake & Output 12/27/17 12/28/17 12/29/17 06:59 06:59 06:59 Intake Total 1300 300 Output Total 1500 1200 Balance -200 -900 Weight 60 kg 61.3 kg General appearance: PRESENT: no acute distress Respiratory exam: PRESENT: clear to auscultation sandip Cardiovascular exam: PRESENT: tachycardia GI/Abdominal exam: PRESENT: other - Distended, apparent tenderness in the right lower quadrant. Wound is clean dry and intact. Subtle erythema in the right lower quadrant. Results Laboratory Results: 12/27/17 09:16 12/26/17 04:06 12/27/17 11:50 Carbonic Acid 1.27 HCO3/H2CO3 Ratio 22:1 ABG pH 7.44 ABG pCO2 42.2 ABG pO2 71.1 L ABG HCO3 28.0 H ABG O2 Saturation 94.8 ABG Base Excess 3.5 FiO2 4L Impressions: Acute Abdomen Series 12/24/17 05:16 IMPRESSION: No acute findings. Abdomen/Pelvis CT 12/24/17 06:46 IMPRESSION: Mildly dilated appendix which is along the right upper quadrant with multiple appendicoliths. No definite periappendiceal inflammatory changes or evidence of a perforation or abscess/phlegmon formation. This may be due to an early acute uncomplicated appendicitis. Ground glass opacities along the dependent portion of the right lung base, which may represent atelectasis or pneumonia. TECHNICAL DOCUMENTATION: Quality ID # 436: Final reports with documentation of one or more dose reduction techniques (e.g., Automated exposure control, adjustment of the mA and/or kV according to patient size, use of iterative reconstruction technique) 2010 [employer]- All Rights Reserved Abdomen X-Ray 12/27/17 00:00 IMPRESSION: There is air and stool in the colon. Nonspecific abdomen. Chest X-Ray 12/27/17 00:00 IMPRESSION: COPD. NO ACUTE RADIOGRAPHIC FINDING IN THE CHEST. Assessment & Plan - Diagnosis (1) Constipation Is this a current diagnosis for this admission?: Yes (2) Abdominal pain Qualifiers: Abdominal location: right lower quadrant Qualified Code(s): R10.31 - Right lower quadrant pain Is this a current diagnosis for this admission?: Yes Plan: Apparent tenderness and pain in the right lower quadrant with continued abdominal distention in the setting of recent appendectomy. Will place on Levaquin and Flagyl in light of subtle erythema of the abdominal wall and his tenderness. Will obtain a abdominal pelvic CT scan with contrast via G-tube.
[2017-12-28] MEDS: NORMAL SALINE 1000 ML 1,000 ML IV PRN ×2 (11:01→13:35)
[2017-12-28] MEDS: BACLOFEN 10 MG TABLET PO SCH ×2 (11:01→17:25)
[2017-12-28] MEDS: POLYETHYLENE GLYCOL 3350 POWDER 17 GM/1 PACKET PO SCH ×2 (11:01→17:25)
[2017-12-28] MEDS: FERROUS SULFATE LIQUID 300 MG/5 ML UDC PO SCH (11:01)
[2017-12-28] MEDS: GLYCOPYRROLATE 1 MG TABLET PO SCH ×3 (11:02→17:35)
[2017-12-28] MEDS: FLUTICASONE/SALMETEROL DISKUS 500-50 MCG/DOSE IH SCH ×2 (11:13→21:23)
[2017-12-28] MEDS: TIOTROPIUM BROMIDE DPI 5 CAP/KIT (18 MCG/CAP) IH SCH (11:13)
[2017-12-28 11:48] LABS: ABSOLUTE LYMPHOCYTES (AUTO) 0.6 10^3/uL (0.5-4.7); ABSOLUTE MONOCYTES (AUTO) 0.6 10^3/uL (0.1-1.4); ABSOLUTE NEUT (AUTO) 6.1 10^3/uL (1.7-8.2); BASOPHILS % (AUTO) 0.2 % (0-2); EOSINOPHILS % (AUTO) 0.1 % (0-6); HEMATOCRIT 28.2 % (37.9-51.0); HEMOGLOBIN 9.8 g/dL (13.5-17.0); LYMPHOCYTES % (AUTO) 8.7 % (13-45); MEAN CORPUSCULAR HGB CONC 34.7 g/dL (32.0-36.0); MEAN CORPUSCULAR VOLUME 92 fl (80-97); MONOCYTES % (AUTO) 7.7 % (3-13); PLATELET COUNT 195 10^3/uL (150-450); RED BLOOD COUNT 3.06 10^6/uL (4.35-5.55); RED CELL DISTRIBUTION WIDTH 14.7 % (11.5-14.0); SEGMENTED NEUTROPHILS % (AUTO) 83.3 % (42-78); TOTAL CELLS COUNTED % (AUTO) 100 %; WHITE BLOOD COUNT 7.3 10^3/uL (4.0-10.5)
[2017-12-28] MEDS: OXYCODONE HCL IR 5 MG TABLET PO PRN ×2 (11:54→18:38)
[2017-12-28] MEDS ORDERED: NORMAL SALINE 1000 ML 1,000 ML IV ONE (12:00)
[2017-12-28 12:07] LABS: ANION GAP 11 (5-19); BLOOD UREA NITROGEN 8 mg/dL (7-20); CALCIUM 8.4 mg/dL (8.4-10.2); CARBON DIOXIDE 27 mmol/L (22-30); CHLORIDE 103 mmol/L (98-107); GLUCOSE 94 mg/dL (75-110); POTASSIUM 3.5 mmol/L (3.6-5.0); SODIUM 141.4 mmol/L (137-145)
--- NOTE | 2017-12-28 13:00 | RADIOLOGY REPORT (SQ) ---
EXAM DESCRIPTION: KNEE RIGHT 2 VIEWS COMPLETED DATE/TIME: 12/28/2017 12:52 pm REASON FOR STUDY: RED SWOLLEN KNEE COMPARISON: None. NUMBER OF VIEWS: Two views. TECHNIQUE: AP and lateral radiographic images acquired of the right knee. LIMITATIONS: None. FINDINGS: MINERALIZATION: Osteopenia. BONES: No acute fracture or dislocation. No worrisome bone lesions. JOINT: No effusion. SOFT TISSUES: No soft tissue swelling. No radio-opaque foreign body. OTHER: No other significant finding. IMPRESSION: No fracture or dislocation of the right knee. Joint spaces are well preserved. No knee joint effusion. Osteopenia. TECHNICAL DOCUMENTATION: JOB ID: [id number] [employer]- All Rights Reserved Reading location - IP/workstation name: [email or web address]
[2017-12-28] MEDS: LEVOFLOXACIN 500 MG/D5W RTU 500 MG/100 ML RTUPB IV SCH (13:35)
--- NOTE | 2017-12-28 15:00 | PDOC PROGRESS REPORT ---
Subjective Reason For Visit: ACUTE APPENDICITIS Physical Exam Vital Signs: Temp Pulse Resp BP Pulse Ox 99.0 F 111 H 17 151/66 H 100 12/28/17 11:52 12/28/17 11:52 12/28/17 11:52 12/28/17 11:52 12/28/17 11:52 Intake & Output 12/27/17 12/28/17 12/29/17 06:59 06:59 06:59 Intake Total 4284 605 0770 Output Total 1500 1200 Balance -200 -900 2100 Weight 60 kg 61.3 kg Rectal exam: PRESENT: other - No perianal masses. Very soft stool palpable in the rectal vault. Results Laboratory Results: 12/28/17 11:35 12/28/17 11:35 12/28/17 12/28/17 11:35 11:35 WBC 7.3 RBC 3.06 L Hgb 9.8 L Hct 28.2 L MCV 92 MCH 32.0 MCHC 34.7 RDW 14.7 H Plt Count 195 Seg Neutrophils % 83.3 H Lymphocytes % 8.7 L Monocytes % 7.7 Eosinophils % 0.1 Basophils % 0.2 Absolute Neutrophils 6.1 Absolute Lymphocytes 0.6 Absolute Monocytes 0.6 Absolute Eosinophils 0.0 Absolute Basophils 0.0 Sodium 141.4 Potassium 3.5 L Chloride 103 Carbon Dioxide 27 Anion Gap 11 BUN 8 Creatinine 0.60 Est GFR ( Amer) > 60 Est GFR (Non-Af Amer) > 60 Glucose 94 Calcium 8.4 Impressions: Acute Abdomen Series 12/24/17 05:16 IMPRESSION: No acute findings. Abdomen X-Ray 12/27/17 00:00 IMPRESSION: There is air and stool in the colon. Nonspecific abdomen. Chest X-Ray 12/27/17 00:00 IMPRESSION: COPD. NO ACUTE RADIOGRAPHIC FINDING IN THE CHEST. Knee X-Ray 12/28/17 00:00 IMPRESSION: No fracture or dislocation of the right knee. Joint spaces are well preserved. No knee joint effusion. Osteopenia. Assessment & Plan - Diagnosis (1) Constipation Is this a current diagnosis for this admission?: Yes Plan: CT scan is noteworthy for stool-filled colon. Cecum about 8 cm max in distention. NO CT scan findings suggestive of stump leak. Hopefully the enteral contrast that was given for the CT scan will stimulate bowel movements. Will do soapsuds enemas. He apparently had a moderately good response with the fleets enema earlier today. (2) Abdominal pain Qualifiers: Abdominal location: right lower quadrant Qualified Code(s): R10.31 - Right lower quadrant pain Is this a current diagnosis for this admission?: Yes
--- NOTE | 2017-12-28 16:40 | RADIOLOGY REPORT (SQ) ---
EXAM DESCRIPTION: CT ABD/PELVIS WITH IV ORAL COMPLETED DATE/TIME: 12/28/2017 3:48 pm REASON FOR STUDY: Abdominal pain status post appendectomy. COMPARISON: 12/24/2017. TECHNIQUE: CT scan of the abdomen and pelvis performed with intravenous and oral contrast using mariela kobi scanning technique with dynamic intravenous contrast injection. Images reviewed with lung, soft t issue, and bone windows. Reconstructed coronal and sagittal MPR images reviewed. Delayed images for e valuation of the urinary system also acquired. All images stored on PACS. All CT scanners at this facility use dose modulation, iterative reconstruction, and/or weight based d osing when appropriate to reduce radiation dose to as low as reasonably achievable (ALARA). [facility]: Dose Right [facility]: CareDose [facility]: Dose Right [facility]: Teradose 4D [facility]: [employer] CONTRAST TYPE AND DOSE: contrast/concentration: Isovue 350.00 mg/ml; Total Contrast Delivered: 66.0 ml; Total Saline Delivered: 65.0 ml RENAL FUNCTION: GFR > 60. RADIATION DOSE: CT Rad equipment meets quality standard of care and radiation dose reduction techniq ues were employed. CTDIvol: 7.1 - 7.8 mGy. DLP: 749 mGy-cm. . LIMITATIONS: None. FINDINGS: LOWER CHEST: Gastroesophageal reflux. Small pleural effusions and associated atelectasis. LIVER: Normal size. No masses. No dilated ducts. SPLEEN: Normal size. No focal lesions. PANCREAS: No masses. No significant calcifications. No adjacent inflammation or peripancreatic fluid collections. Pancreatic duct not dilated. GALLBLADDER: No identified stones by CT criteria. No inflammatory changes to suggest cholecystitis. ADRENAL GLANDS: No significant masses or asymmetry. RIGHT KIDNEY AND URETER: No solid masses. No significant calcifications. No hydronephrosis or hyd roureter. LEFT KIDNEY AND URETER: No solid masses. No significant calcifications. No hydronephrosis or hydr oureter. AORTA AND VESSELS: No aneurysm. RETROPERITONEUM: No retroperitoneal adenopathy, hemorrhage or masses. BOWEL AND PERITONEAL CAVITY: Gastrostomy. Abundant fecal material transverse and descending colon. Redundant transverse colon. Cecum diameter upper limits of normal. No small bowel dilatation. Free air in the pelvis status post recent appendectomy. No ascites. APPENDIX: Surgically absent. PELVIS: See above. Morales catheter in urinary bladder. ABDOMINAL WALL: Expected postsurgical changes. Fat containing right inguinal hernia. BONES: No acute findings. OTHER: No other significant finding. IMPRESSION: Postop colonic ileus or pseudo-obstruction. TECHNICAL DOCUMENTATION: JOB ID: [id number] Quality ID # [id number]: Final reports with documentation of one or more dose reduction techniques (e.g., Au tomated exposure control, adjustment of the mA and/or kV according to patient size, use of iterative reconstruction technique) 2010 [employer]- All Rights Reserved Reading location - IP/workstation name: [email or web address]
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
[2017-12-28] MEDS: AMITRIPTYLINE HCL 50 MG TABLET PO SCH (21:15)
[2017-12-29] MEDS: ALBUTEROL SULFATE 0.083% NEB 2.5 MG/3 ML AMPUL NEB SCH ×4 (02:06→19:34)
[2017-12-29] MEDS: METRONIDAZOLE 500 MG/NS RTU 500 MG/100 ML RTUPB IV SCH ×3 (02:54→17:40)
[2017-12-29] MEDS: LANSOPRAZOLE 30 MG TAB.RAP.DR PO SCH (05:30)
[2017-12-29] MEDS: NORMAL SALINE 1000 ML 1,000 ML IV PRN ×2 (05:50→18:51)
[2017-12-29] MEDS ORDERED: DEXTROSE 50%-WATER 25 GM/50 ML DISP.SYRIN IV ONE (06:27)
[2017-12-29] MEDS ORDERED: DEXTROSE 40% GEL 15 GM TUBE X 2 PO PRN (06:33)
[2017-12-29] MEDS ORDERED: GLUCAGON,HUMAN RECOMB 1 MG INJ IM PRN (06:33)
[2017-12-29] MEDS ORDERED: DEXTROSE 40% GEL 15 GM TUBE PO PRN (06:33)
[2017-12-29] MEDS ORDERED: DEXTROSE 50%-WATER SYRINGE 25 GM/50 ML DOSE IV PRN (06:33)
[2017-12-29] MEDS ORDERED: DEXTROSE 50%-WATER SYRINGE 12.5 GM/25 ML DOSE IV PRN (06:33)
[2017-12-29] MEDS: FERROUS SULFATE LIQUID 300 MG/5 ML UDC PO SCH (10:10)
[2017-12-29] MEDS: FLUTICASONE/SALMETEROL DISKUS 500-50 MCG/DOSE IH SCH ×2 (10:10→22:04)
[2017-12-29] MEDS: TIOTROPIUM BROMIDE DPI 5 CAP/KIT (18 MCG/CAP) IH SCH (10:11)
[2017-12-29] MEDS ORDERED: MAGNESIUM CITRATE 296 ML BOTTLE PEG ONE (10:30)
[2017-12-29] MEDS: POLYETHYLENE GLYCOL 3350 POWDER 17 GM/1 PACKET PO SCH ×2 (10:53→17:40)
[2017-12-29] MEDS: BACLOFEN 10 MG TABLET PO SCH ×2 (10:54→17:40)
[2017-12-29] MEDS: GLYCOPYRROLATE 1 MG TABLET PO SCH ×3 (10:54→17:40)
[2017-12-29] MEDS: OXYCODONE HCL IR 5 MG TABLET PO PRN (10:55)
--- NOTE | 2017-12-29 11:34 | PDOC PROGRESS REPORT ---
Subjective Progress Note for:: 12/29/17 Subjective:: Moaning Reason For Visit: ACUTE APPENDICITIS Physical Exam Vital Signs: Temp Pulse Resp BP Pulse Ox 97.8 F 88 18 143/61 H 100 12/29/17 08:51 12/29/17 08:51 12/29/17 08:51 12/29/17 08:51 12/29/17 08:51 Intake & Output 12/28/17 12/29/17 12/30/17 06:59 06:59 06:59 Intake Total 300 3400 Output Total 1200 1000 Balance -900 2400 Weight 61.3 kg 65.6 kg General appearance: PRESENT: mild distress GI/Abdominal exam: PRESENT: other - Slightly distended; operative site looks pristine; laury in place; minimal bruising Results Laboratory Results: 12/28/17 11:35 12/28/17 11:35 12/28/17 12/28/17 11:35 11:35 WBC 7.3 RBC 3.06 L Hgb 9.8 L Hct 28.2 L MCV 92 MCH 32.0 MCHC 34.7 RDW 14.7 H Plt Count 195 Seg Neutrophils % 83.3 H Lymphocytes % 8.7 L Monocytes % 7.7 Eosinophils % 0.1 Basophils % 0.2 Absolute Neutrophils 6.1 Absolute Lymphocytes 0.6 Absolute Monocytes 0.6 Absolute Eosinophils 0.0 Absolute Basophils 0.0 Sodium 141.4 Potassium 3.5 L Chloride 103 Carbon Dioxide 27 Anion Gap 11 BUN 8 Creatinine 0.60 Est GFR ( Amer) > 60 Est GFR (Non-Af Amer) > 60 Glucose 94 Calcium 8.4 Impressions: Acute Abdomen Series 12/24/17 05:16 IMPRESSION: No acute findings. Abdomen X-Ray 12/27/17 00:00 IMPRESSION: There is air and stool in the colon. Nonspecific abdomen. Chest X-Ray 12/27/17 00:00 IMPRESSION: COPD. NO ACUTE RADIOGRAPHIC FINDING IN THE CHEST. Abdomen/Pelvis CT 12/28/17 00:00 IMPRESSION: Postop colonic ileus or pseudo-obstruction. Knee X-Ray 12/28/17 00:00 IMPRESSION: No fracture or dislocation of the right knee. Joint spaces are well preserved. No knee joint effusion. Osteopenia. Assessment & Plan - Diagnosis (1) Acute appendicitis Qualifiers: Acute appendicitis type: unspecified acute appendicitis type Qualified Code (s): K35.80 - Unspecified acute appendicitis Is this a current diagnosis for this admission?: Yes Plan: Impression: Patient is postoperative day 4 status post appendectomy open, by Dr. Edmonds; final path showing acute appendicitis; patient had Exparel L injected into the subcutaneous tissues perioperatively. The patient is suffering from constipation; there is no indication of further intra-abdominal pathology. Recommendation: 1. Stop narcotics; use nonnarcotic analgesics such as nonsteroidal anti- inflammatory agents, warm abdominal wall compresses 2. Continue cathartics through feeding tube until effect achieved 3. Will sign off from a surgical standpoint; patient can follow-up with [place] [facility] in 1-2 weeks for staple removal (2) ALS (amyotrophic lateral sclerosis) Is this a current diagnosis for this admission?: Yes (3) Leukocytosis Qualifiers: Leukocytosis type: unspecified Qualified Code(s): D72.829 - Elevated white blood cell count, unspecified Is this a current diagnosis for this admission?: Yes (4) Aortic atherosclerosis Is this a current diagnosis for this admission?: Yes
[2017-12-29] MEDS: LEVOFLOXACIN 500 MG/D5W RTU 500 MG/100 ML RTUPB IV SCH (14:35)
[2017-12-29] MEDS ORDERED: LANSOPRAZOLE 30 MG TAB.RAP.DR PO ONE (18:30)
--- NOTE | 2017-12-29 21:28 | PDOC PROGRESS REPORT ---
Subjective Progress Note for:: 12/29/17 Subjective:: Patient was admitted by the surgical list for the management of acute appendicitis, status post appendectomy, he has abdominal distention history of ALS on chronic narcotic usage CT scan showed abundant that fecal material in the transverse and descending colon. He has a PEG tube Reason For Visit: ACUTE APPENDICITIS Physical Exam Vital Signs: Temp Pulse Resp BP Pulse Ox 98.3 F 95 18 149/84 H 97 12/29/17 16:14 12/29/17 19:35 12/29/17 19:35 12/29/17 16:14 12/29/17 19:35 Intake & Output 12/28/17 12/29/17 12/30/17 06:59 06:59 06:59 Intake Total 300 3400 1300 Output Total 1200 1000 900 Balance -900 2400 400 Weight 61.3 kg 65.6 kg General appearance: PRESENT: no acute distress Eye exam: PRESENT: PERRLA Respiratory exam: PRESENT: clear to auscultation sandip Cardiovascular exam: PRESENT: +S1, +S2 GI/Abdominal exam: PRESENT: distended, firm, other - PEG tube Neurological exam: PRESENT: alert Results Laboratory Results: 12/28/17 11:35 12/28/17 11:35 Impressions: Acute Abdomen Series 12/24/17 05:16 IMPRESSION: No acute findings. Abdomen X-Ray 12/27/17 00:00 IMPRESSION: There is air and stool in the colon. Nonspecific abdomen. Chest X-Ray 12/27/17 00:00 IMPRESSION: COPD. NO ACUTE RADIOGRAPHIC FINDING IN THE CHEST. Abdomen/Pelvis CT 12/28/17 00:00 IMPRESSION: Postop colonic ileus or pseudo-obstruction. Knee X-Ray 12/28/17 00:00 IMPRESSION: No fracture or dislocation of the right knee. Joint spaces are well preserved. No knee joint effusion. Osteopenia. Assessment & Plan - Diagnosis (1) ALS (amyotrophic lateral sclerosis) Is this a current diagnosis for this admission?: Yes (2) Fecal impaction Is this a current diagnosis for this admission?: Yes Plan: Continue enema washout
[2017-12-29] MEDS: AMITRIPTYLINE HCL 50 MG TABLET PO SCH (22:04)
[2017-12-29] MEDS: DEXTROSE 5%-NORMAL SALINE 1,000 ML IV PRN (22:05)
[2017-12-30] MEDS: ALBUTEROL SULFATE 0.083% NEB 2.5 MG/3 ML AMPUL NEB SCH ×4 (02:08→19:37)
[2017-12-30] MEDS: DEXTROSE 5%-NORMAL SALINE 1,000 ML IV PRN ×2 (06:59→18:13)
[2017-12-30] MEDS: LANSOPRAZOLE 30 MG TAB.RAP.DR PO SCH (06:59)
[2017-12-30] MEDS: BACLOFEN 10 MG TABLET PO SCH ×2 (10:05→18:06)
[2017-12-30] MEDS: TIOTROPIUM BROMIDE DPI 5 CAP/KIT (18 MCG/CAP) IH SCH (10:07)
[2017-12-30] MEDS: GLYCOPYRROLATE 1 MG TABLET PO SCH ×3 (10:08→18:06)
[2017-12-30] MEDS: FLUTICASONE/SALMETEROL DISKUS 500-50 MCG/DOSE IH SCH ×2 (10:08→21:35)
[2017-12-30] MEDS: POLYETHYLENE GLYCOL 3350 POWDER 17 GM/1 PACKET PO SCH ×2 (10:08→18:07)
[2017-12-30] MEDS: FERROUS SULFATE LIQUID 300 MG/5 ML UDC PO SCH (10:08)
[2017-12-30] MEDS: AMITRIPTYLINE HCL 50 MG TABLET PO SCH (21:35)
[2017-12-31] MEDS: ALBUTEROL SULFATE 0.083% NEB 2.5 MG/3 ML AMPUL NEB SCH ×4 (02:23→19:12)
[2017-12-31] MEDS: LANSOPRAZOLE 30 MG TAB.RAP.DR PO SCH (05:59)
[2017-12-31] MEDS: DEXTROSE 5%-NORMAL SALINE 1,000 ML IV PRN ×2 (06:01→14:57)
[2017-12-31] MEDS: FERROUS SULFATE LIQUID 300 MG/5 ML UDC PO SCH (10:48)
[2017-12-31] MEDS: TIOTROPIUM BROMIDE DPI 5 CAP/KIT (18 MCG/CAP) IH SCH (10:48)
[2017-12-31] MEDS: FLUTICASONE/SALMETEROL DISKUS 500-50 MCG/DOSE IH SCH ×2 (10:48→22:25)
[2017-12-31] MEDS: POLYETHYLENE GLYCOL 3350 POWDER 17 GM/1 PACKET PO SCH ×2 (10:49→18:00)
[2017-12-31] MEDS: BACLOFEN 10 MG TABLET PO SCH ×2 (10:49→18:00)
[2017-12-31] MEDS: GLYCOPYRROLATE 1 MG TABLET PO SCH ×3 (10:49→18:00)
--- NOTE | 2017-12-31 15:38 | PDOC PROGRESS REPORT ---
Subjective Progress Note for:: 12/31/17 Subjective:: Patient seen by the bedside the abdomen is still distended Reason For Visit: ACUTE APPENDICITIS Physical Exam Vital Signs: Temp Pulse Resp BP Pulse Ox 98.2 F 92 16 147/57 H 97 12/31/17 11:09 12/31/17 14:08 12/31/17 14:08 12/31/17 11:09 12/31/17 15:24 Intake & Output 12/30/17 12/31/17 01/01/18 06:59 06:59 06:59 Intake Total 3190 2000 893 Output Total 1950 3450 Balance 1240 -1450 893 Weight 63.6 kg 63.1 kg Eye exam: PRESENT: PERRLA Respiratory exam: PRESENT: clear to auscultation sandip Cardiovascular exam: PRESENT: +S1, +S2 GI/Abdominal exam: PRESENT: distended Neurological exam: PRESENT: alert Results Laboratory Results: 12/28/17 11:35 12/28/17 11:35 Impressions: Acute Abdomen Series 12/24/17 05:16 IMPRESSION: No acute findings. Abdomen X-Ray 12/27/17 00:00 IMPRESSION: There is air and stool in the colon. Nonspecific abdomen. Chest X-Ray 12/27/17 00:00 IMPRESSION: COPD. NO ACUTE RADIOGRAPHIC FINDING IN THE CHEST. Abdomen/Pelvis CT 12/28/17 00:00 IMPRESSION: Postop colonic ileus or pseudo-obstruction. Knee X-Ray 12/28/17 00:00 IMPRESSION: No fracture or dislocation of the right knee. Joint spaces are well preserved. No knee joint effusion. Osteopenia. Assessment & Plan - Diagnosis (1) ALS (amyotrophic lateral sclerosis) Is this a current diagnosis for this admission?: Yes (2) Fecal impaction Is this a current diagnosis for this admission?: Yes (3) Acute appendicitis Qualifiers: Acute appendicitis type: unspecified acute appendicitis type Qualified Code (s): K35.80 - Unspecified acute appendicitis Is this a current diagnosis for this admission?: Yes
--- NOTE | 2017-12-31 15:38 | PDOC PROGRESS REPORT ---
Subjective Progress Note for:: 12/30/17 Subjective:: Patient was admitted by the surgical list for the management of acute appendicitis, status post appendectomy, he has abdominal distention history of ALS on chronic narcotic usage CT scan showed abundant that fecal material in the transverse and descending colon. He has a PEG tube Reason For Visit: ACUTE APPENDICITIS Physical Exam Vital Signs: Temp Pulse Resp BP Pulse Ox 98.2 F 92 16 147/57 H 97 12/31/17 11:09 12/31/17 14:08 12/31/17 14:08 12/31/17 11:09 12/31/17 15:24 Intake & Output 12/30/17 12/31/17 01/01/18 06:59 06:59 06:59 Intake Total 3190 2000 893 Output Total 1950 3450 Balance 1240 -1450 893 Weight 63.6 kg 63.1 kg General appearance: PRESENT: no acute distress Eye exam: PRESENT: PERRLA Respiratory exam: PRESENT: clear to auscultation sandip Cardiovascular exam: PRESENT: +S1, +S2 GI/Abdominal exam: PRESENT: soft Neurological exam: PRESENT: alert Results Laboratory Results: 12/28/17 11:35 12/28/17 11:35 Impressions: Acute Abdomen Series 12/24/17 05:16 IMPRESSION: No acute findings. Abdomen X-Ray 12/27/17 00:00 IMPRESSION: There is air and stool in the colon. Nonspecific abdomen. Chest X-Ray 12/27/17 00:00 IMPRESSION: COPD. NO ACUTE RADIOGRAPHIC FINDING IN THE CHEST. Abdomen/Pelvis CT 12/28/17 00:00 IMPRESSION: Postop colonic ileus or pseudo-obstruction. Knee X-Ray 12/28/17 00:00 IMPRESSION: No fracture or dislocation of the right knee. Joint spaces are well preserved. No knee joint effusion. Osteopenia. Assessment & Plan - Diagnosis (1) ALS (amyotrophic lateral sclerosis) Is this a current diagnosis for this admission?: Yes (2) Fecal impaction Is this a current diagnosis for this admission?: Yes (3) Acute appendicitis Qualifiers: Acute appendicitis type: unspecified acute appendicitis type Qualified Code (s): K35.80 - Unspecified acute appendicitis Is this a current diagnosis for this admission?: Yes
[2017-12-31] MEDS: AMITRIPTYLINE HCL 50 MG TABLET PO SCH (22:25)
[2018-01-01] MEDS: DEXTROSE 5%-NORMAL SALINE 1,000 ML IV PRN ×2 (02:28→13:43)
[2018-01-01] MEDS: ALBUTEROL SULFATE 0.083% NEB 2.5 MG/3 ML AMPUL NEB SCH ×4 (03:05→19:24)
[2018-01-01] MEDS: LANSOPRAZOLE 30 MG TAB.RAP.DR PO SCH (05:33)
--- NOTE | 2018-01-01 08:32 | PDOC PROGRESS REPORT ---
Subjective Progress Note for:: 01/01/18 Subjective:: His bowel movement is improving. No reported chest pain or fever. 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 Reason For Visit: ACUTE APPENDICITIS Physical Exam Vital Signs: Temp Pulse Resp BP Pulse Ox 97.5 F 76 18 150/62 H 98 12/31/17 23:14 01/01/18 02:55 01/01/18 02:55 12/31/17 23:14 01/01/18 02:55 Intake & Output 12/31/17 01/01/18 01/02/18 06:59 06:59 06:59 Intake Total 1999 1892 Output Total 3450 2100 Balance -1450 -207 Weight 63.1 kg 63.5 kg Physical Exam: General appearance: PRESENT: no acute distress, verbally limited in communication Head exam: PRESENT: atraumatic, normocephalic Eye exam: PRESENT: conjunctiva pink. ABSENT: scleral icterus Ear exam: PRESENT: normal external ear exam Mouth exam: PRESENT: moist Respiratory exam: PRESENT: clear to auscultation sandip Cardiovascular exam: PRESENT: RRR. ABSENT: diastolic murmur, rubs, systolic murmur Vascular exam: ABSENT: pallor GI/Abdominal exam: PRESENT: normal bowel sounds, firm, PEG and surgical sites okay. ABSENT: guarding, mass, organomegaly, rebound, tenderness Extremities exam: ABSENT: pedal edema Musculoskeletal exam: PRESENT: deformity - due to multiple joints involvement with arthritis Neurological exam: PRESENT: alert, awake - limited in verbal response but made appropriate gestures. Psychiatric exam: ABSENT: agitated, anxious Skin exam: PRESENT: dry, warm, other - surgical instrumentation sites dressings are satisfactory Results Laboratory Results: 12/28/17 11:35 12/28/17 11:35 Impressions: Acute Abdomen Series 12/24/17 05:16 IMPRESSION: No acute findings. Abdomen X-Ray 12/27/17 00:00 IMPRESSION: There is air and stool in the colon. Nonspecific abdomen. Chest X-Ray 12/27/17 00:00 IMPRESSION: COPD. NO ACUTE RADIOGRAPHIC FINDING IN THE CHEST. Abdomen/Pelvis CT 12/28/17 00:00 IMPRESSION: Postop colonic ileus or pseudo-obstruction. Knee X-Ray 12/28/17 00:00 IMPRESSION: No fracture or dislocation of the right knee. Joint spaces are well preserved. No knee joint effusion. Osteopenia. Assessment & Plan - Diagnosis (1) Acute appendicitis Qualifiers: Acute appendicitis type: unspecified acute appendicitis type Qualified Code (s): K35.80 - Unspecified acute appendicitis Is this a current diagnosis for this admission?: Yes (2) ALS (amyotrophic lateral sclerosis) Is this a current diagnosis for this admission?: Yes (3) HTN (hypertension) Qualifiers: Hypertension type: essential hypertension Qualified Code(s): I10 - Essential (primary) hypertension Is this a current diagnosis for this admission?: Yes (4) Asthma with chronic obstructive pulmonary disease (COPD) Is this a current diagnosis for this admission?: Yes (5) Liver cirrhosis Qualifiers: Hepatic cirrhosis type: alcoholic cirrhosis Ascites presence: unspecified Qualified Code(s): K70.30 - Alcoholic cirrhosis of liver without ascites Is this a current diagnosis for this admission?: Yes (6) Chronic pain syndrome Is this a current diagnosis for this admission?: Yes (7) Chronic use of opiate drugs therapeutic purposes Is this a current diagnosis for this admission?: Yes (8) Constipation due to opioid therapy Is this a current diagnosis for this admission?: Yes - Time Time Spent with patient: 25-34 minutes Medications reviewed and adjusted accordingly: Yes Anticipated discharge: SNF Within: Other - Inpatient Certification Based on my medical assessment, after consideration of the patient's comorbidities, presenting symptoms, or acuity I expect that the services needed warrant INPATIENT care.: Yes I certify that my determination is in accordance with my understanding of Medicare's requirements for reasonable and necessary INPATIENT services [42 CFR 412.3e].: Yes Medical Necessity: Need Close Monitoring Due to Risk of Patient Decompensation, Need For IV Fluids, Need For Continuous Telemetry Monitoring, Risk of Complication if Not Cared For in Hospital Post Hospital Care: D/C or Transfer Summary - Plan Summary Plan Summary: Continue current medication management. Follow up with production planner scheduler regarding disposition. Maintain on Isosource bolus feeding 2 cans @ 6am, 2 cans at 2pm and 1 can at 10 pm
[2018-01-01] MEDS: POLYETHYLENE GLYCOL 3350 POWDER 17 GM/1 PACKET PO SCH ×2 (11:22→17:43)
[2018-01-01] MEDS: FLUTICASONE/SALMETEROL DISKUS 500-50 MCG/DOSE IH SCH ×2 (11:22→23:04)
[2018-01-01] MEDS: OXYCODONE HCL IR 5 MG TABLET PO PRN ×2 (11:22→23:34)
[2018-01-01] MEDS: FERROUS SULFATE LIQUID 300 MG/5 ML UDC PO SCH (11:24)
[2018-01-01] MEDS: BACLOFEN 10 MG TABLET PO SCH ×2 (11:25→17:43)
[2018-01-01] MEDS: GLYCOPYRROLATE 1 MG TABLET PO SCH ×3 (11:26→17:43)
[2018-01-01] MEDS: TIOTROPIUM BROMIDE DPI 5 CAP/KIT (18 MCG/CAP) IH SCH (11:27)
[2018-01-01] MEDS: IPRATROPIUM/ALBUTEROL 0.5-2.5 MG/3 ML AMPUL NEB PRN (23:16)
[2018-01-01] MEDS: AMITRIPTYLINE HCL 50 MG TABLET PO SCH (23:34)
[2018-01-02] MEDS: ALBUTEROL SULFATE 0.083% NEB 2.5 MG/3 ML AMPUL NEB SCH ×4 (02:06→20:16)
[2018-01-02 02:15] LABS: ARTERIAL BLOOD BASE EXCESS 5.5 mmol/L; ARTERIAL BLOOD FIO2 40%; ARTERIAL BLOOD H2CO3 1.45 mmol/L (1.05-1.35); ARTERIAL BLOOD HCO3 30.9 mmol/L (20-24); ARTERIAL BLOOD O2 SATURATION 93.4 % (94-98); ARTERIAL BLOOD PCO2 48.2 mmHg (35-45); ARTERIAL BLOOD PH 7.43 (7.35-7.45); ARTERIAL BLOOD PO2 66.3 mmHg (80-100); ARTERIAL BLOOD TOTAL CO2 32.4 mmol/L (23-27)
[2018-01-02] MEDS ORDERED: ENALAPRILAT DIHYDRATE INJ/PF 1.25 MG/1 ML SDV IV ONE (02:45)
[2018-01-02] MEDS: LANSOPRAZOLE 30 MG TAB.RAP.DR PO SCH (05:36)
--- NOTE | 2018-01-02 08:20 | PDOC PROGRESS REPORT ---
Subjective Progress Note for:: 01/02/18 Subjective:: Patient had episode of post feeding vomiting and difficulty with breathing since last clinical evaluation. There was need for increase Vasotec administration due to elevated blood pressure and noninvasive respiratory support via BiPAP. No reported fever. Reason For Visit: ACUTE APPENDICITIS Physical Exam Vital Signs: Temp Pulse Resp BP Pulse Ox 98.4 F 104 H 20 166/101 H 97 01/01/18 23:44 01/02/18 07:39 01/02/18 07:39 01/02/18 02:45 01/02/18 07:39 Intake & Output 01/01/18 01/02/18 01/03/18 06:59 06:59 06:59 Intake Total 1893 2870 Output Total 2100 1900 Balance -207 970 Weight 63.5 kg 63 kg Physical Exam: General appearance: PRESENT: acute respiratory distress on BiPAP support, verbally limited in communication Head exam: PRESENT: atraumatic, normocephalic Eye exam: PRESENT: conjunctiva pink. ABSENT: scleral icterus Ear exam: PRESENT: normal external ear exam Mouth exam: PRESENT: moist Respiratory exam: PRESENT: clear to auscultation sandip Cardiovascular exam: PRESENT: RRR. ABSENT: diastolic murmur, rubs, systolic murmur Vascular exam: ABSENT: pallor GI/Abdominal exam: PRESENT: normal bowel sounds, firm, PEG and surgical sites okay. ABSENT: guarding, mass, organomegaly, rebound, tenderness Extremities exam: ABSENT: pedal edema Musculoskeletal exam: PRESENT: deformity - due to multiple joints involvement with arthritis Neurological exam: PRESENT: alert, awake - limited in verbal response but made appropriate gestures. Psychiatric exam: ABSENT: agitated, anxious Skin exam: PRESENT: dry, warm, other - surgical instrumentation sites dressings are satisfactory Results Laboratory Results: 12/28/17 11:35 12/28/17 11:35 01/02/18 01:45 Carbonic Acid 1.45 H HCO3/H2CO3 Ratio 21:1 ABG pH 7.43 ABG pCO2 48.2 H ABG pO2 66.3 L ABG HCO3 30.9 H ABG O2 Saturation 93.4 L ABG Base Excess 5.5 FiO2 40% Impressions: Acute Abdomen Series 12/24/17 05:16 IMPRESSION: No acute findings. Abdomen X-Ray 12/27/17 00:00 IMPRESSION: There is air and stool in the colon. Nonspecific abdomen. Chest X-Ray 12/27/17 00:00 IMPRESSION: COPD. NO ACUTE RADIOGRAPHIC FINDING IN THE CHEST. Abdomen/Pelvis CT 12/28/17 00:00 IMPRESSION: Postop colonic ileus or pseudo-obstruction. Knee X-Ray 12/28/17 00:00 IMPRESSION: No fracture or dislocation of the right knee. Joint spaces are well preserved. No knee joint effusion. Osteopenia. Assessment & Plan - Diagnosis (1) Acute appendicitis Qualifiers: Acute appendicitis type: unspecified acute appendicitis type Qualified Code (s): K35.80 - Unspecified acute appendicitis Is this a current diagnosis for this admission?: Yes (2) ALS (amyotrophic lateral sclerosis) Is this a current diagnosis for this admission?: Yes (3) HTN (hypertension) Qualifiers: Hypertension type: essential hypertension Qualified Code(s): I10 - Essential (primary) hypertension Is this a current diagnosis for this admission?: Yes (4) Asthma with chronic obstructive pulmonary disease (COPD) Is this a current diagnosis for this admission?: Yes (5) Liver cirrhosis Qualifiers: Hepatic cirrhosis type: alcoholic cirrhosis Ascites presence: unspecified Qualified Code(s): K70.30 - Alcoholic cirrhosis of liver without ascites Is this a current diagnosis for this admission?: Yes (6) Chronic pain syndrome Is this a current diagnosis for this admission?: Yes (7) Chronic use of opiate drugs therapeutic purposes Is this a current diagnosis for this admission?: Yes (8) Constipation due to opioid therapy Is this a current diagnosis for this admission?: Yes - Time Time Spent with patient: 25-34 minutes Medications reviewed and adjusted accordingly: Yes Anticipated discharge: SNF Within: Other - Inpatient Certification Based on my medical assessment, after consideration of the patient's comorbidities, presenting symptoms, or acuity I expect that the services needed warrant INPATIENT care.: Yes I certify that my determination is in accordance with my understanding of Medicare's requirements for reasonable and necessary INPATIENT services [42 CFR 412.3e].: Yes Medical Necessity: Need Close Monitoring Due to Risk of Patient Decompensation, Need For IV Fluids, Need For Continuous Telemetry Monitoring, Risk of Complication if Not Cared For in Hospital Post Hospital Care: D/C or Transfer Summary - Plan Summary Plan Summary: Obtain portable chest X ray view. Obtain CBC with diff, and CMP. Consider need for antibiotic coverage based on findings on X ray and lab reports. Change feeding schedule to 1 can via peg q 5 hours. Continue all other current medication and supportive management. Prognosis remain poor in view of his morbidities.
[2018-01-02 09:20] LABS: HEMATOCRIT 28.8 % (37.9-51.0); MEAN CORPUSCULAR HEMOGLOBIN 30.7 pg (27.0-33.4); MEAN CORPUSCULAR HGB CONC 34.5 g/dL (32.0-36.0); MEAN CORPUSCULAR VOLUME 89 fl (80-97); PLATELET COUNT 400 10^3/uL (150-450); RED BLOOD COUNT 3.24 10^6/uL (4.35-5.55); RED CELL DISTRIBUTION WIDTH 14.7 % (11.5-14.0); WHITE BLOOD COUNT 25.1 10^3/uL (4.0-10.5)
--- NOTE | 2018-01-02 09:26 | RADIOLOGY REPORT (SQ) ---
EXAM DESCRIPTION: CHEST SINGLE VIEW COMPLETED DATE/TIME: 01/02/2018 9:02 am REASON FOR STUDY: Difficulty with breathing s/p vomiting COMPARISON: Chest films 12/27/2017, 12/24/2017, 08/11/2017 CT chest 06/15/2017 EXAM PARAMETERS: NUMBER OF VIEWS: One view. TECHNIQUE: Single frontal radiographic view of the chest acquired. RADIATION DOSE: NA LIMITATIONS: None. FINDINGS: LUNGS AND PLEURA: No opacities, masses or pneumothorax. No pleural effusion. MEDIASTINUM AND HILAR STRUCTURES: No masses. Contour normal. HEART AND VASCULAR STRUCTURES: Heart normal in size. Normal vasculature. BONES: No acute findings. HARDWARE: None in the chest. OTHER: No other significant finding. IMPRESSION: NO ACUTE RADIOGRAPHIC FINDING IN THE CHEST. TECHNICAL DOCUMENTATION: JOB ID: [id number] [employer]- All Rights Reserved Reading location - IP/workstation name: [email or web address]
[2018-01-02 09:39] LABS: ABSOLUTE LYMPHOCYTES# (MANUAL) 1.3 10^3/uL (0.5-4.7); ABSOLUTE MONOCYTES # (MANUAL) 2.3 10^3/uL (0.1-1.4); ABSOLUTE NEUTROPHILS# (MANUAL) 21.6 10^3/uL (1.7-8.2); BAND NEUTROPHILS % (MANUAL) 4 % (3-5); BASOPHILS % (MANUAL) 0 % (0-2); EOSINOPHILS % (MANUAL) 0 % (0-6); LYMPHOCYTES % (MANUAL) 5 % (13-45); MONOCYTES % (MANUAL) 9 % (3-13); RBC MORPHOLOGY COMMENT NORMO-CYTIC/CHROMIC; SEGMENTED NEUTROPHILS % (MAN) 82 % (42-78); TOTAL CELLS COUNTED 100; TOXIC GRANULATION 1+
[2018-01-02 09:40] LABS: PLATELET COMMENT ADEQUATE
[2018-01-02 09:45] LABS: ALANINE AMINOTRANSFERASE 26 U/L (21-72); ALBUMIN 2.8 g/dL (3.5-5.0); ALKALINE PHOSPHATASE 70 U/L (38-126); ANION GAP 9 (5-19); ASPARTATE AMINO TRANSFERASE 38 U/L (17-59); BILIRUBIN,DIRECT 0.4 mg/dL (0.0-0.4); BILIRUBIN,TOTAL 0.5 mg/dL (0.2-1.3); BLOOD UREA NITROGEN 5 mg/dL (7-20); CALCIUM 8.5 mg/dL (8.4-10.2); CARBON DIOXIDE 32 mmol/L (22-30); CHLORIDE 100 mmol/L (98-107); GLUCOSE 144 mg/dL (75-110); SODIUM 141.2 mmol/L (137-145)
[2018-01-02 09:51] LABS: POTASSIUM 2.9 mmol/L (3.6-5.0)
[2018-01-02] MEDS: TIOTROPIUM BROMIDE DPI 5 CAP/KIT (18 MCG/CAP) IH SCH (11:06)
[2018-01-02] MEDS: FLUTICASONE/SALMETEROL DISKUS 500-50 MCG/DOSE IH SCH ×2 (11:06→23:23)
[2018-01-02] MEDS: GLYCOPYRROLATE 1 MG TABLET PO SCH ×3 (11:27→17:11)
[2018-01-02] MEDS: BACLOFEN 10 MG TABLET PO SCH ×2 (11:27→17:11)
[2018-01-02] MEDS: POLYETHYLENE GLYCOL 3350 POWDER 17 GM/1 PACKET PO SCH ×2 (11:28→17:13)
[2018-01-02] MEDS: POTASSIUM CHLORIDE 20 MEQ/50 ML RTU IV SCH ×3 (11:28→16:04)
[2018-01-02] MEDS: FERROUS SULFATE LIQUID 300 MG/5 ML UDC PO SCH (11:28)
[2018-01-02] MEDS: OXYCODONE HCL IR 5 MG TABLET PO PRN (11:40)
[2018-01-02] MEDS: DEXTROSE 5%-NORMAL SALINE 1,000 ML IV PRN (14:59)
[2018-01-02] MEDS: AMITRIPTYLINE HCL 50 MG TABLET PO SCH (22:51)
[2018-01-03] MEDS: DEXTROSE 5%-NORMAL SALINE 1,000 ML IV PRN ×2 (01:19→13:20)
[2018-01-03] MEDS: ALBUTEROL SULFATE 0.083% NEB 2.5 MG/3 ML AMPUL NEB SCH ×4 (01:59→20:38)
[2018-01-03] MEDS: LANSOPRAZOLE 30 MG TAB.RAP.DR PO SCH (05:01)
--- NOTE | 2018-01-03 08:14 | PDOC PROGRESS REPORT ---
Subjective Progress Note for:: 01/03/18 Subjective:: Patient remain on noninvasive respiratory support via BiPAP. No reported fever but there is significant leukocytosis on his am lab this morning. Reason For Visit: ACUTE APPENDICITIS Physical Exam Vital Signs: Temp Pulse Resp BP Pulse Ox 98.9 F 96 24 H 152/67 H 100 01/03/18 03:32 01/03/18 07:42 01/03/18 07:42 01/03/18 03:32 01/03/18 07:42 Intake & Output 01/02/18 01/03/18 01/04/18 06:59 06:59 06:59 Intake Total 2870 3090 Output Total 1900 1500 Balance 970 1590 Weight 63 kg 66.2 kg Physical Exam: General appearance: PRESENT: acute respiratory distress on BiPAP support, verbally limited in communication Head exam: PRESENT: atraumatic, normocephalic Eye exam: PRESENT: conjunctiva pink. ABSENT: scleral icterus Ear exam: PRESENT: normal external ear exam Mouth exam: PRESENT: moist Respiratory exam: PRESENT: clear to auscultation sandip Cardiovascular exam: PRESENT: RRR. ABSENT: diastolic murmur, rubs, systolic murmur Vascular exam: ABSENT: pallor GI/Abdominal exam: PRESENT: normal bowel sounds, firm, PEG and surgical sites okay. ABSENT: guarding, mass, organomegaly, rebound, tenderness Extremities exam: ABSENT: pedal edema Musculoskeletal exam: PRESENT: deformity - due to multiple joints involvement with arthritis Neurological exam: PRESENT: alert, awake - limited in verbal response but made appropriate gestures. Psychiatric exam: ABSENT: agitated, anxious Skin exam: PRESENT: dry, warm, other - surgical instrumentation sites dressings are satisfactory Results Laboratory Results: 01/02/18 09:06 01/02/18 09:06 01/02/18 01/02/18 01/02/18 09:06 09:06 09:06 WBC 25.1 H RBC 3.24 L Hgb 10.0 L Hct 28.8 L MCV 89 MCH 30.7 MCHC 34.5 RDW 14.7 H Plt Count 400 Seg Neutrophils % Not Reportable Lymphocytes % Not Reportable Monocytes % Not Reportable Eosinophils % Not Reportable Basophils % Not Reportable Absolute Neutrophils Not Reportable Absolute Lymphocytes Not Reportable Absolute Monocytes Not Reportable Absolute Eosinophils Not Reportable Absolute Basophils Not Reportable Sodium 141.2 Potassium 2.9 L* Chloride 100 Carbon Dioxide 32 H Anion Gap 9 BUN 5 L Creatinine 0.57 Est GFR ( Amer) > 60 Est GFR (Non-Af Amer) > 60 Glucose 144 H Calcium 8.5 Magnesium 1.8 Total Bilirubin 0.5 AST 38 ALT 26 Alkaline Phosphatase 70 Total Protein 6.0 L Albumin 2.8 L Impressions: Acute Abdomen Series 12/24/17 05:16 IMPRESSION: No acute findings. Abdomen X-Ray 12/27/17 00:00 IMPRESSION: There is air and stool in the colon. Nonspecific abdomen. Abdomen/Pelvis CT 12/28/17 00:00 IMPRESSION: Postop colonic ileus or pseudo-obstruction. Knee X-Ray 12/28/17 00:00 IMPRESSION: No fracture or dislocation of the right knee. Joint spaces are well preserved. No knee joint effusion. Osteopenia. Chest X-Ray 01/02/18 00:00 IMPRESSION: NO ACUTE RADIOGRAPHIC FINDING IN THE CHEST. Assessment & Plan - Diagnosis (1) Acute appendicitis Qualifiers: Acute appendicitis type: unspecified acute appendicitis type Qualified Code (s): K35.80 - Unspecified acute appendicitis Is this a current diagnosis for this admission?: Yes (2) ALS (amyotrophic lateral sclerosis) Is this a current diagnosis for this admission?: Yes (3) HTN (hypertension) Qualifiers: Hypertension type: essential hypertension Qualified Code(s): I10 - Essential (primary) hypertension Is this a current diagnosis for this admission?: Yes (4) Asthma with chronic obstructive pulmonary disease (COPD) Is this a current diagnosis for this admission?: Yes (5) Liver cirrhosis Qualifiers: Hepatic cirrhosis type: alcoholic cirrhosis Ascites presence: unspecified Qualified Code(s): K70.30 - Alcoholic cirrhosis of liver without ascites Is this a current diagnosis for this admission?: Yes (6) Chronic pain syndrome Is this a current diagnosis for this admission?: Yes (7) Chronic use of opiate drugs therapeutic purposes Is this a current diagnosis for this admission?: Yes (8) Constipation due to opioid therapy Is this a current diagnosis for this admission?: Yes - Time Time Spent with patient: 25-34 minutes Medications reviewed and adjusted accordingly: Yes Anticipated discharge: SNF Within: Other - Inpatient Certification Based on my medical assessment, after consideration of the patient's comorbidities, presenting symptoms, or acuity I expect that the services needed warrant INPATIENT care.: Yes I certify that my determination is in accordance with my understanding of Medicare's requirements for reasonable and necessary INPATIENT services [42 CFR 412.3e].: Yes Medical Necessity: Need Close Monitoring Due to Risk of Patient Decompensation, Need For IV Fluids, Need For Continuous Telemetry Monitoring, Need for IV Antibiotics, Risk of Complication if Not Cared For in Hospital Post Hospital Care: D/C or Transfer Summary - Plan Summary Plan Summary: Obtain blood culture x 2 sets. Start on IV Levofloxacin 500 mg daily. Maintain on BiPAP support. Obtain BMP with Mag this morning. Repeat chest X ray portable. Obtain CBC with diff, BMP in AM.
[2018-01-03] MEDS: FLUTICASONE/SALMETEROL DISKUS 500-50 MCG/DOSE IH SCH (09:13)
[2018-01-03] MEDS: TIOTROPIUM BROMIDE DPI 5 CAP/KIT (18 MCG/CAP) IH SCH (09:13)
[2018-01-03 09:20] LABS: ABSOLUTE EOSINOPHILS # (AUTO) 0.1 10^3/uL (0.0-0.6); ABSOLUTE LYMPHOCYTES (AUTO) 1.3 10^3/uL (0.5-4.7); ABSOLUTE MONOCYTES (AUTO) 0.8 10^3/uL (0.1-1.4); ABSOLUTE NEUT (AUTO) 13.3 10^3/uL (1.7-8.2); BASOPHILS % (AUTO) 0.1 % (0-2); EOSINOPHILS % (AUTO) 0.8 % (0-6); HEMATOCRIT 26.9 % (37.9-51.0); HEMOGLOBIN 9.2 g/dL (13.5-17.0); LYMPHOCYTES % (AUTO) 8.5 % (13-45); MEAN CORPUSCULAR HEMOGLOBIN 31.2 pg (27.0-33.4); MEAN CORPUSCULAR HGB CONC 34.2 g/dL (32.0-36.0); MEAN CORPUSCULAR VOLUME 91 fl (80-97); PLATELET COUNT 382 10^3/uL (150-450); RED BLOOD COUNT 2.95 10^6/uL (4.35-5.55); SEGMENTED NEUTROPHILS % (AUTO) 85.6 % (42-78); TOTAL CELLS COUNTED % (AUTO) 100 %; WHITE BLOOD COUNT 15.5 10^3/uL (4.0-10.5)
[2018-01-03] MEDS: BACLOFEN 10 MG TABLET PO SCH ×2 (09:22→17:35)
[2018-01-03] MEDS: LISINOPRIL 10 MG TABLET PO SCH (09:22)
[2018-01-03] MEDS: POLYETHYLENE GLYCOL 3350 POWDER 17 GM/1 PACKET PO SCH ×2 (09:22→17:34)
[2018-01-03] MEDS: GLYCOPYRROLATE 1 MG TABLET PO SCH ×3 (09:22→17:35)
[2018-01-03] MEDS: FERROUS SULFATE LIQUID 300 MG/5 ML UDC PO SCH (09:23)
[2018-01-03] MEDS: LEVOFLOXACIN 500 MG/D5W RTU 500 MG/100 ML RTUPB IV SCH (09:23)
[2018-01-03] MEDS: OXYCODONE HCL IR 5 MG TABLET PEG PRN ×2 (09:34→16:26)
[2018-01-03 09:43] LABS: ANION GAP 13 (5-19); BLOOD UREA NITROGEN 8 mg/dL (7-20); CALCIUM 8.7 mg/dL (8.4-10.2); CARBON DIOXIDE 31 mmol/L (22-30); CHLORIDE 97 mmol/L (98-107); GLUCOSE 102 mg/dL (75-110); POTASSIUM 3.2 mmol/L (3.6-5.0); SODIUM 140.7 mmol/L (137-145)
[2018-01-03] MEDS ORDERED: POTASSIUM CHLORIDE 10 MEQ CAPSULE.ER PO SCH (20:00)
[2018-01-04] MEDS: POTASSIUM CHLORIDE 20 MEQ/15 ML UDCUP PO SCH ×3 (00:17→05:54)
[2018-01-04] MEDS: FLUTICASONE/SALMETEROL DISKUS 500-50 MCG/DOSE IH SCH ×3 (00:21→23:19)
[2018-01-04] MEDS: AMITRIPTYLINE HCL 50 MG TABLET PO SCH ×2 (00:22→23:18)
[2018-01-04] MEDS: ALBUTEROL SULFATE 0.083% NEB 2.5 MG/3 ML AMPUL NEB SCH ×4 (02:14→20:08)
[2018-01-04 05:41] LABS: HEMATOCRIT 27.8 % (37.9-51.0); HEMOGLOBIN 9.6 g/dL (13.5-17.0); MEAN CORPUSCULAR HEMOGLOBIN 31.5 pg (27.0-33.4); MEAN CORPUSCULAR HGB CONC 34.6 g/dL (32.0-36.0); MEAN CORPUSCULAR VOLUME 91 fl (80-97); PLATELET COUNT 381 10^3/uL (150-450); RED BLOOD COUNT 3.06 10^6/uL (4.35-5.55); RED CELL DISTRIBUTION WIDTH 14.4 % (11.5-14.0); WHITE BLOOD COUNT 8.9 10^3/uL (4.0-10.5)
[2018-01-04] MEDS ORDERED: POTASSIUM CHLORIDE 20 MEQ/15 ML UDCUP ONE (05:52)
[2018-01-04] MEDS: LANSOPRAZOLE 30 MG TAB.RAP.DR PO SCH (05:55)
[2018-01-04 06:03] LABS: ANION GAP 10 (5-19); BLOOD UREA NITROGEN 7 mg/dL (7-20); CALCIUM 8.8 mg/dL (8.4-10.2); CARBON DIOXIDE 30 mmol/L (22-30); CHLORIDE 99 mmol/L (98-107); GLUCOSE 112 mg/dL (75-110); SODIUM 138.9 mmol/L (137-145)
[2018-01-04] MEDS: LEVOFLOXACIN 500 MG/D5W RTU 500 MG/100 ML RTUPB IV SCH (10:13)
[2018-01-04] MEDS: POLYETHYLENE GLYCOL 3350 POWDER 17 GM/1 PACKET PO SCH ×2 (10:13→17:59)
[2018-01-04] MEDS: FERROUS SULFATE LIQUID 300 MG/5 ML UDC PO SCH (10:13)
[2018-01-04] MEDS: GLYCOPYRROLATE 1 MG TABLET PO SCH ×3 (10:15→17:59)
[2018-01-04] MEDS: BACLOFEN 10 MG TABLET PO SCH ×2 (10:15→17:58)
[2018-01-04] MEDS: LISINOPRIL 10 MG TABLET PO SCH (10:15)
[2018-01-04] MEDS: TIOTROPIUM BROMIDE DPI 5 CAP/KIT (18 MCG/CAP) IH SCH (10:16)
[2018-01-04] MEDS: DEXTROSE 5%-NORMAL SALINE 1,000 ML IV PRN (10:19)
[2018-01-04] MEDS: OXYCODONE HCL IR 5 MG TABLET PEG PRN ×2 (10:22→17:58)
--- NOTE | 2018-01-04 15:57 | PDOC PROGRESS REPORT ---
Subjective Progress Note for:: 01/04/18 Subjective:: No reported recurrent difficulty with breathing. Patient remain on supplemental oxygen via nasal cannula and doing well off BiPAP support. His leukocytosis is improving. Tolerating PEG tube feeding. Reason For Visit: ACUTE APPENDICITIS Physical Exam Vital Signs: Temp Pulse Resp BP Pulse Ox 97.9 F 111 H 16 155/67 H 97 01/04/18 12:27 01/04/18 14:57 01/04/18 13:59 01/04/18 12:27 01/04/18 13:59 Intake & Output 01/03/18 01/04/18 01/05/18 06:59 06:59 06:59 Intake Total 3090 3550 200 Output Total 1500 2850 820 Balance 1590 700 -620 Weight 66.2 kg 66.1 kg Physical Exam: General appearance: PRESENT: on nasal cannula supplemental oxygen support, verbally limited in communication Head exam: PRESENT: atraumatic, normocephalic Eye exam: PRESENT: conjunctiva pink. ABSENT: scleral icterus Respiratory exam: PRESENT: clear to auscultation sandip Cardiovascular exam: PRESENT: RRR. ABSENT: diastolic murmur, rubs, systolic murmur Vascular exam: ABSENT: pallor GI/Abdominal exam: PRESENT: normal bowel sounds, firm, PEG and surgical sites okay. ABSENT: guarding, mass, organomegaly, rebound, tenderness Extremities exam: ABSENT: pedal edema Musculoskeletal exam: PRESENT: deformity - due to multiple joints involvement with arthritis Neurological exam: PRESENT: alert, awake - limited in verbal response but made appropriate gestures. Psychiatric exam: ABSENT: agitated, anxious Skin exam: PRESENT: dry, warm, other - surgical instrumentation sites dressings are satisfactory Results Laboratory Results: 01/04/18 05:05 01/04/18 05:05 01/04/18 01/04/18 05:05 05:05 WBC 8.9 RBC 3.06 L Hgb 9.6 L Hct 27.8 L MCV 91 MCH 31.5 MCHC 34.6 RDW 14.4 H Plt Count 381 Sodium 138.9 Potassium 4.0 Chloride 99 Carbon Dioxide 30 Anion Gap 10 BUN 7 Creatinine 0.51 L Est GFR ( Amer) > 60 Est GFR (Non-Af Amer) > 60 Glucose 112 H Calcium 8.8 Impressions: Acute Abdomen Series 12/24/17 05:16 IMPRESSION: No acute findings. Abdomen X-Ray 12/27/17 00:00 IMPRESSION: There is air and stool in the colon. Nonspecific abdomen. Abdomen/Pelvis CT 12/28/17 00:00 IMPRESSION: Postop colonic ileus or pseudo-obstruction. Knee X-Ray 12/28/17 00:00 IMPRESSION: No fracture or dislocation of the right knee. Joint spaces are well preserved. No knee joint effusion. Osteopenia. Chest X-Ray 01/02/18 00:00 IMPRESSION: NO ACUTE RADIOGRAPHIC FINDING IN THE CHEST. Assessment & Plan - Diagnosis (1) Acute appendicitis Qualifiers: Acute appendicitis type: unspecified acute appendicitis type Qualified Code (s): K35.80 - Unspecified acute appendicitis Is this a current diagnosis for this admission?: Yes (2) ALS (amyotrophic lateral sclerosis) Is this a current diagnosis for this admission?: Yes (3) HTN (hypertension) Qualifiers: Hypertension type: essential hypertension Qualified Code(s): I10 - Essential (primary) hypertension Is this a current diagnosis for this admission?: Yes (4) Asthma with chronic obstructive pulmonary disease (COPD) Is this a current diagnosis for this admission?: Yes (5) Liver cirrhosis Qualifiers: Hepatic cirrhosis type: alcoholic cirrhosis Ascites presence: unspecified Qualified Code(s): K70.30 - Alcoholic cirrhosis of liver without ascites Is this a current diagnosis for this admission?: Yes (6) Chronic pain syndrome Is this a current diagnosis for this admission?: Yes (7) Chronic use of opiate drugs therapeutic purposes Is this a current diagnosis for this admission?: Yes (8) Constipation due to opioid therapy Is this a current diagnosis for this admission?: Yes (9) Aspiration pneumonia due to vomitus Qualifiers: Laterality: unspecified laterality Lung location: unspecified part of lung Qualified Code(s): J69.0 - Pneumonitis due to inhalation of food and vomit Is this a current diagnosis for this admission?: Yes Plan: Continue IV Levofloxacin coverage. His leukocytosis is resolving. Follow up on blood culture findings. - Time Time Spent with patient: 25-34 minutes Medications reviewed and adjusted accordingly: Yes Anticipated discharge: SNF Within: Other - Inpatient Certification Based on my medical assessment, after consideration of the patient's comorbidities, presenting symptoms, or acuity I expect that the services needed warrant INPATIENT care.: Yes I certify that my determination is in accordance with my understanding of Medicare's requirements for reasonable and necessary INPATIENT services [42 CFR 412.3e].: Yes Medical Necessity: Need Close Monitoring Due to Risk of Patient Decompensation, Need For IV Fluids, Need For Continuous Telemetry Monitoring, Need for Nebulizer Therapy and Monitoring of Response, Need for IV Antibiotics, Risk of Complication if Not Cared For in Hospital Post Hospital Care: D/C or Transfer Summary - Plan Summary Plan Summary: Continue IV Levofloxacin coverage. Continue all other current medical management. follow up on disposition plan to SNF as longterm resident.
[2018-01-04] MEDS ORDERED: DILTIAZEM HCL 30 MG TABLET PO ONE (19:00)
[2018-01-04] MEDS ORDERED: DILTIAZEM HCL 30 MG TABLET ONE (19:08)
[2018-01-05] MEDS: ALBUTEROL SULFATE 0.083% NEB 2.5 MG/3 ML AMPUL NEB SCH ×4 (02:13→20:26)
[2018-01-05] MEDS: LANSOPRAZOLE 30 MG TAB.RAP.DR PO SCH (06:23)
[2018-01-05] MEDS: DEXTROSE 5%-NORMAL SALINE 1,000 ML IV PRN (08:18)
[2018-01-05] MEDS: FLUTICASONE/SALMETEROL DISKUS 500-50 MCG/DOSE IH SCH ×2 (09:55→23:26)
[2018-01-05] MEDS: BACLOFEN 10 MG TABLET PO SCH ×2 (10:00→17:24)
[2018-01-05] MEDS: FERROUS SULFATE LIQUID 300 MG/5 ML UDC PO SCH (10:00)
[2018-01-05] MEDS: POLYETHYLENE GLYCOL 3350 POWDER 17 GM/1 PACKET PO SCH ×2 (10:01→17:24)
[2018-01-05] MEDS: LISINOPRIL 10 MG TABLET PO SCH (10:01)
[2018-01-05] MEDS: LEVOFLOXACIN 500 MG/D5W RTU 500 MG/100 ML RTUPB IV SCH (10:01)
[2018-01-05] MEDS: GLYCOPYRROLATE 1 MG TABLET PO SCH ×3 (10:02→17:24)
[2018-01-05] MEDS: TIOTROPIUM BROMIDE DPI 5 CAP/KIT (18 MCG/CAP) IH SCH (10:02)
[2018-01-05] MEDS: OXYCODONE HCL IR 5 MG TABLET PEG PRN ×2 (13:16→22:54)
--- NOTE | 2018-01-05 16:37 | PDOC PROGRESS REPORT ---
Subjective Progress Note for:: 01/05/18 Subjective:: Patient was admitted for acute appendicitis status post surgery currently doing well with the PEG tube feeding Patient also aspiration pneumonia currently on antibiotic Patient with significant history of the ALS with progressively more worse and currently see at [facility] clinic Reason For Visit: ACUTE APPENDICITIS Physical Exam Vital Signs: Temp Pulse Resp BP Pulse Ox 98.8 F 106 H 20 155/68 H 99 01/05/18 07:58 01/05/18 14:00 01/05/18 13:57 01/05/18 12:07 01/05/18 13:57 Intake & Output 01/04/18 01/05/18 01/06/18 06:59 06:59 06:59 Intake Total 3550 2130 570 Output Total 2850 2740 Balance 700 -610 570 Weight 66.1 kg 66.4 kg General appearance: PRESENT: no acute distress, thin Head exam: PRESENT: atraumatic, normocephalic Eye exam: PRESENT: conjunctiva pink, EOMI, PERRLA. ABSENT: scleral icterus Ear exam: PRESENT: normal external ear exam Mouth exam: PRESENT: moist, tongue midline Neck exam: PRESENT: full ROM. ABSENT: carotid bruit, JVD, lymphadenopathy, thyromegaly Respiratory exam: PRESENT: decreased breath sounds Cardiovascular exam: PRESENT: RRR. ABSENT: diastolic murmur, rubs, systolic murmur Pulses: PRESENT: normal dorsalis pedis pul, +2 pedal pulses bilateral Vascular exam: PRESENT: normal capillary refill GI/Abdominal exam: PRESENT: normal bowel sounds, soft. ABSENT: distended, guarding, mass, organolmegaly, rebound, tenderness Rectal exam: PRESENT: deferred Neurological exam: PRESENT: alert, awake, oriented to person, oriented to place , oriented to time, oriented to situation, CN II-XII grossly intact. ABSENT: motor sensory deficit Psychiatric exam: PRESENT: appropriate affect, normal mood. ABSENT: homicidal ideation, suicidal ideation Skin exam: PRESENT: dry, intact, warm. ABSENT: cyanosis, rash Results Laboratory Results: 01/04/18 05:05 01/04/18 05:05 Impressions: Acute Abdomen Series 12/24/17 05:16 IMPRESSION: No acute findings. Abdomen X-Ray 12/27/17 00:00 IMPRESSION: There is air and stool in the colon. Nonspecific abdomen. Abdomen/Pelvis CT 12/28/17 00:00 IMPRESSION: Postop colonic ileus or pseudo-obstruction. Knee X-Ray 12/28/17 00:00 IMPRESSION: No fracture or dislocation of the right knee. Joint spaces are well preserved. No knee joint effusion. Osteopenia. Chest X-Ray 01/02/18 00:00 IMPRESSION: NO ACUTE RADIOGRAPHIC FINDING IN THE CHEST. Assessment & Plan - Diagnosis (1) ALS (amyotrophic lateral sclerosis) Is this a current diagnosis for this admission?: Yes (2) Acute appendicitis Qualifiers: Acute appendicitis type: unspecified acute appendicitis type Qualified Code (s): K35.80 - Unspecified acute appendicitis Is this a current diagnosis for this admission?: Yes (3) Aortic atherosclerosis Is this a current diagnosis for this admission?: Yes (4) Aspiration pneumonia due to vomitus Qualifiers: Laterality: unspecified laterality Lung location: unspecified part of lung Qualified Code(s): J69.0 - Pneumonitis due to inhalation of food and vomit Is this a current diagnosis for this admission?: Yes (5) Chronic pain syndrome Is this a current diagnosis for this admission?: Yes (6) HTN (hypertension) Qualifiers: Hypertension type: essential hypertension Qualified Code(s): I10 - Essential (primary) hypertension Is this a current diagnosis for this admission?: Yes (7) Liver cirrhosis Qualifiers: Hepatic cirrhosis type: alcoholic cirrhosis Ascites presence: unspecified Qualified Code(s): K70.30 - Alcoholic cirrhosis of liver without ascites Is this a current diagnosis for this admission?: Yes - Time Time Spent with patient: 15-24 minutes Medications reviewed and adjusted accordingly: Yes Anticipated discharge: SNF Within: Other - Inpatient Certification I certify that my determination is in accordance with my understanding of Medicare's requirements for reasonable and necessary INPATIENT services [42 CFR 412.3e].: Yes Medical Necessity: Need Close Monitoring Due to Risk of Patient Decompensation, Need for IV Antibiotics Post Hospital Care: D/C Human Resources Office Manager Documentation - Plan Summary Plan Summary: Continues to current medications
[2018-01-05] MEDS: AMITRIPTYLINE HCL 50 MG TABLET PO SCH (22:54)
[2018-01-06] MEDS: ALBUTEROL SULFATE 0.083% NEB 2.5 MG/3 ML AMPUL NEB SCH ×5 (01:53→19:51)
[2018-01-06 06:09] LABS: HEMATOCRIT 24.6 % (37.9-51.0); HEMOGLOBIN 8.6 g/dL (13.5-17.0); MEAN CORPUSCULAR HEMOGLOBIN 31.4 pg (27.0-33.4); MEAN CORPUSCULAR HGB CONC 35.1 g/dL (32.0-36.0); MEAN CORPUSCULAR VOLUME 90 fl (80-97); PLATELET COUNT 401 10^3/uL (150-450); RED BLOOD COUNT 2.75 10^6/uL (4.35-5.55); RED CELL DISTRIBUTION WIDTH 14.2 % (11.5-14.0); WHITE BLOOD COUNT 5.8 10^3/uL (4.0-10.5)
[2018-01-06 06:27] LABS: ANION GAP 9 (5-19); BLOOD UREA NITROGEN 4 mg/dL (7-20); CALCIUM 8.7 mg/dL (8.4-10.2); CARBON DIOXIDE 31 mmol/L (22-30); CHLORIDE 99 mmol/L (98-107); GLUCOSE 115 mg/dL (75-110); POTASSIUM 3.3 mmol/L (3.6-5.0); SODIUM 138.7 mmol/L (137-145)
[2018-01-06 06:31] LABS: ABSOLUTE LYMPHOCYTES# (MANUAL) 1.2 10^3/uL (0.5-4.7); ABSOLUTE MONOCYTES # (MANUAL) 1.2 10^3/uL (0.1-1.4); ABSOLUTE NEUTROPHILS# (MANUAL) 3.3 10^3/uL (1.7-8.2); BAND NEUTROPHILS % (MANUAL) 2 % (3-5); BASOPHILS % (MANUAL) 0 % (0-2); EOSINOPHILS % (MANUAL) 2 % (0-6); LYMPHOCYTES % (MANUAL) 20 % (13-45); MONOCYTES % (MANUAL) 21 % (3-13); SEGMENTED NEUTROPHILS % (MAN) 55 % (42-78); TOTAL CELLS COUNTED 100
[2018-01-06 06:32] LABS: PLATELET COMMENT ADEQUATE; RBC MORPHOLOGY COMMENT NORMO-CYTIC/CHROMIC; TOXIC VACUOLATION PRESENT
[2018-01-06] MEDS: OXYCODONE HCL IR 5 MG TABLET PEG PRN ×3 (08:23→20:36)
--- NOTE | 2018-01-06 09:38 | PDOC PROGRESS REPORT ---
Subjective Progress Note for:: 01/06/18 Subjective:: Patient was admitted for acute appendicitis status post surgery currently doing well with the PEG tube feeding Patient also aspiration pneumonia currently on antibiotic Patient with significant history of the ALS with progressively more worse and currently see at [facility] Reason For Visit: ACUTE APPENDICITIS Physical Exam Vital Signs: Temp Pulse Resp BP Pulse Ox 98.2 F 89 16 138/53 H 100 01/06/18 08:37 01/06/18 08:37 01/06/18 08:37 01/06/18 08:37 01/06/18 08:37 Intake & Output 01/05/18 01/06/18 01/07/18 06:59 06:59 06:59 Intake Total 2410 1130 Output Total 2740 800 Balance -330 330 Weight 66.4 kg 65.5 kg General appearance: PRESENT: no acute distress, thin Head exam: PRESENT: atraumatic, normocephalic Eye exam: PRESENT: conjunctiva pink, EOMI, PERRLA. ABSENT: scleral icterus Ear exam: PRESENT: normal external ear exam Mouth exam: PRESENT: moist, tongue midline Neck exam: PRESENT: full ROM. ABSENT: carotid bruit, JVD, lymphadenopathy, thyromegaly Respiratory exam: PRESENT: decreased breath sounds Cardiovascular exam: PRESENT: RRR. ABSENT: diastolic murmur, rubs, systolic murmur Pulses: PRESENT: normal dorsalis pedis pul, +2 pedal pulses bilateral Vascular exam: PRESENT: normal capillary refill GI/Abdominal exam: PRESENT: normal bowel sounds, soft. ABSENT: distended, guarding, mass, organolmegaly, rebound, tenderness Rectal exam: PRESENT: deferred Neurological exam: PRESENT: alert, awake, oriented to person, oriented to place , oriented to time. ABSENT: motor sensory deficit Psychiatric exam: PRESENT: appropriate affect, normal mood. ABSENT: homicidal ideation, suicidal ideation Skin exam: PRESENT: dry, intact, warm. ABSENT: cyanosis, rash Results Laboratory Results: 01/06/18 05:00 01/06/18 05:00 01/06/18 01/06/18 05:00 05:00 WBC 5.8 RBC 2.75 L Hgb 8.6 L Hct 24.6 L MCV 90 MCH 31.4 MCHC 35.1 RDW 14.2 H Plt Count 401 Seg Neutrophils % Not Reportable Lymphocytes % Not Reportable Monocytes % Not Reportable Eosinophils % Not Reportable Basophils % Not Reportable Absolute Neutrophils Not Reportable Absolute Lymphocytes Not Reportable Absolute Monocytes Not Reportable Absolute Eosinophils Not Reportable Absolute Basophils Not Reportable Sodium 138.7 Potassium 3.3 L Chloride 99 Carbon Dioxide 31 H Anion Gap 9 BUN 4 L Creatinine 0.60 Est GFR ( Amer) > 60 Est GFR (Non-Af Amer) > 60 Glucose 115 H Calcium 8.7 Impressions: Acute Abdomen Series 12/24/17 05:16 IMPRESSION: No acute findings. Abdomen X-Ray 12/27/17 00:00 IMPRESSION: There is air and stool in the colon. Nonspecific abdomen. Abdomen/Pelvis CT 12/28/17 00:00 IMPRESSION: Postop colonic ileus or pseudo-obstruction. Knee X-Ray 12/28/17 00:00 IMPRESSION: No fracture or dislocation of the right knee. Joint spaces are well preserved. No knee joint effusion. Osteopenia. Chest X-Ray 01/02/18 00:00 IMPRESSION: NO ACUTE RADIOGRAPHIC FINDING IN THE CHEST. Assessment & Plan - Diagnosis (1) ALS (amyotrophic lateral sclerosis) Is this a current diagnosis for this admission?: Yes Plan: Is currently followed at [place] [facility] (2) Acute appendicitis Qualifiers: Acute appendicitis type: unspecified acute appendicitis type Qualified Code (s): K35.80 - Unspecified acute appendicitis Is this a current diagnosis for this admission?: Yes Plan: Status post surgery (3) Aortic atherosclerosis Is this a current diagnosis for this admission?: Yes (4) Aspiration pneumonia due to vomitus Qualifiers: Laterality: unspecified laterality Lung location: unspecified part of lung Qualified Code(s): J69.0 - Pneumonitis due to inhalation of food and vomit Is this a current diagnosis for this admission?: Yes Plan: Antibiotics we will repeat the chest x-ray (5) Chronic pain syndrome Is this a current diagnosis for this admission?: Yes (6) HTN (hypertension) Qualifiers: Hypertension type: essential hypertension Qualified Code(s): I10 - Essential (primary) hypertension Is this a current diagnosis for this admission?: Yes (7) Liver cirrhosis Qualifiers: Hepatic cirrhosis type: alcoholic cirrhosis Ascites presence: unspecified Qualified Code(s): K70.30 - Alcoholic cirrhosis of liver without ascites Is this a current diagnosis for this admission?: Yes - Time Time Spent with patient: 15-24 minutes Medications reviewed and adjusted accordingly: Yes Anticipated discharge: SNF Within: Other - Inpatient Certification Based on my medical assessment, after consideration of the patient's comorbidities, presenting symptoms, or acuity I expect that the services needed warrant INPATIENT care.: Yes I certify that my determination is in accordance with my understanding of Medicare's requirements for reasonable and necessary INPATIENT services [42 CFR 412.3e].: Yes Medical Necessity: Need Close Monitoring Due to Risk of Patient Decompensation, Need for IV Antibiotics Post Hospital Care: D/C Wood Model Maker Documentation - Plan Summary Plan Summary: Replace the potassium through the tubes repeat the chest x-ray
[2018-01-06] MEDS ORDERED: POTASSIUM CHLORIDE 20 MEQ/15 ML UDCUP PO ONE (10:00)
[2018-01-06] MEDS: POLYETHYLENE GLYCOL 3350 POWDER 17 GM/1 PACKET PO SCH ×2 (10:25→18:56)
[2018-01-06] MEDS: LISINOPRIL 10 MG TABLET PO SCH (10:25)
[2018-01-06] MEDS: BACLOFEN 10 MG TABLET PO SCH ×2 (10:26→17:59)
[2018-01-06] MEDS: LEVOFLOXACIN 500 MG/D5W RTU 500 MG/100 ML RTUPB IV SCH (10:27)
[2018-01-06] MEDS: FERROUS SULFATE LIQUID 300 MG/5 ML UDC PO SCH (10:34)
[2018-01-06] MEDS: GLYCOPYRROLATE 1 MG TABLET PO SCH ×3 (10:35→17:59)
--- NOTE | 2018-01-06 10:48 | RADIOLOGY REPORT (SQ) ---
EXAM DESCRIPTION: CHEST SINGLE VIEW COMPLETED DATE/TIME: 01/06/2018 10:08 am REASON FOR STUDY: pnemonia COMPARISON: CT chest 06/15/2017 AP chest 12/27/2017, 01/02/2018 EXAM PARAMETERS: NUMBER OF VIEWS: One view. TECHNIQUE: Single frontal radiographic view of the chest acquired. RADIATION DOSE: NA LIMITATIONS: None. FINDINGS: LUNGS AND PLEURA: Patchy airspace disease right upper lobe. This should be followed to ra diographic clearing Remainder of the lungs are grossly clear. No pleural effusion. No pneumothorax. MEDIASTINUM AND HILAR STRUCTURES: No masses. Contour normal. HEART AND VASCULAR STRUCTURES: Heart normal in size. Normal vasculature. BONES: No acute findings. HARDWARE: None in the chest. OTHER: No other significant finding. IMPRESSION: Patchy airspace disease right upper lobe, should be followed to radiographic clearing TECHNICAL DOCUMENTATION: JOB ID: [id number] [employer]- All Rights Reserved Reading location - IP/workstation name: [email or web address]
[2018-01-06] MEDS: LANSOPRAZOLE 30 MG TAB.RAP.DR PO SCH (13:45)
[2018-01-06] MEDS: TIOTROPIUM BROMIDE DPI 5 CAP/KIT (18 MCG/CAP) IH SCH (13:46)
[2018-01-06] MEDS: FLUTICASONE/SALMETEROL DISKUS 500-50 MCG/DOSE IH SCH ×2 (13:46→22:52)
[2018-01-06] MEDS: AMITRIPTYLINE HCL 50 MG TABLET PO SCH (22:52)
[2018-01-07] MEDS: ALBUTEROL SULFATE 0.083% NEB 2.5 MG/3 ML AMPUL NEB SCH ×4 (03:00→19:55)
[2018-01-07] MEDS: LANSOPRAZOLE 30 MG TAB.RAP.DR PO SCH (05:04)
[2018-01-07] MEDS: OXYCODONE HCL IR 5 MG TABLET PEG PRN ×3 (05:04→22:26)
[2018-01-07 05:44] LABS: ANION GAP 10 (5-19); BLOOD UREA NITROGEN 6 mg/dL (7-20); CARBON DIOXIDE 31 mmol/L (22-30); CHLORIDE 98 mmol/L (98-107); GLUCOSE 92 mg/dL (75-110); POTASSIUM 3.6 mmol/L (3.6-5.0); SODIUM 139.1 mmol/L (137-145)
[2018-01-07 05:49] LABS: HEMATOCRIT 23.5 % (37.9-51.0); HEMOGLOBIN 8.2 g/dL (13.5-17.0); MEAN CORPUSCULAR HEMOGLOBIN 31.3 pg (27.0-33.4); MEAN CORPUSCULAR HGB CONC 35.1 g/dL (32.0-36.0); MEAN CORPUSCULAR VOLUME 89 fl (80-97); PLATELET COUNT 429 10^3/uL (150-450); RED BLOOD COUNT 2.63 10^6/uL (4.35-5.55); RED CELL DISTRIBUTION WIDTH 14.5 % (11.5-14.0); WHITE BLOOD COUNT 5.9 10^3/uL (4.0-10.5)
[2018-01-07 07:04] LABS: ABSOLUTE LYMPHOCYTES# (MANUAL) 1.3 10^3/uL (0.5-4.7); ABSOLUTE MONOCYTES # (MANUAL) 0.8 10^3/uL (0.1-1.4); ABSOLUTE NEUTROPHILS# (MANUAL) 3.6 10^3/uL (1.7-8.2); BASOPHILS % (MANUAL) 1 % (0-2); EOSINOPHILS % (MANUAL) 2 % (0-6); LYMPHOCYTES % (MANUAL) 22 % (13-45); MONOCYTES % (MANUAL) 14 % (3-13); PLATELET COMMENT ADEQUATE; SEGMENTED NEUTROPHILS % (MAN) 61 % (42-78); TOTAL CELLS COUNTED 100
--- NOTE | 2018-01-07 09:37 | PDOC PROGRESS REPORT ---
Subjective Progress Note for:: 01/07/18 Subjective:: Patient is currently doing fair Patient's denied any chest pain denied any shortness of the breath Patient's tube feeding getting to 250 every 4 hours and patients gets 50-60 residual Other than that no events happens Reason For Visit: ACUTE APPENDICITIS Physical Exam Vital Signs: Temp Pulse Resp BP Pulse Ox 97.3 F 88 10 L 124/57 L 100 01/07/18 08:18 01/07/18 08:18 01/07/18 08:18 01/07/18 08:18 01/07/18 08:18 Intake & Output 01/06/18 01/07/18 01/08/18 06:59 06:59 06:59 Intake Total 1130 2430 Output Total 800 2500 Balance 330 -70 Weight 65.5 kg 65.1 kg General appearance: PRESENT: no acute distress, thin Head exam: PRESENT: atraumatic, normocephalic Eye exam: PRESENT: conjunctiva pink, EOMI, PERRLA. ABSENT: scleral icterus Ear exam: PRESENT: normal external ear exam Mouth exam: PRESENT: moist, tongue midline Neck exam: PRESENT: full ROM. ABSENT: carotid bruit, JVD, lymphadenopathy, thyromegaly Respiratory exam: PRESENT: clear to auscultation sandip Cardiovascular exam: PRESENT: RRR. ABSENT: diastolic murmur, rubs, systolic murmur Pulses: PRESENT: normal dorsalis pedis pul, +2 pedal pulses bilateral Vascular exam: PRESENT: normal capillary refill GI/Abdominal exam: PRESENT: normal bowel sounds, soft. ABSENT: distended, guarding, mass, organolmegaly, rebound, tenderness Rectal exam: PRESENT: deferred Extremities exam: ABSENT: pedal edema Neurological exam: PRESENT: alert, awake, oriented to person, oriented to place , oriented to time, oriented to situation, CN II-XII grossly intact. ABSENT: motor sensory deficit Psychiatric exam: PRESENT: appropriate affect, normal mood. ABSENT: homicidal ideation, suicidal ideation Skin exam: PRESENT: dry, intact, warm. ABSENT: cyanosis, rash Results Laboratory Results: 01/07/18 04:40 01/07/18 04:40 01/07/18 01/07/18 04:40 04:40 WBC 5.9 RBC 2.63 L Hgb 8.2 L Hct 23.5 L MCV 89 MCH 31.3 MCHC 35.1 RDW 14.5 H Plt Count 429 Seg Neutrophils % Not Reportable Lymphocytes % Not Reportable Monocytes % Not Reportable Eosinophils % Not Reportable Basophils % Not Reportable Absolute Neutrophils Not Reportable Absolute Lymphocytes Not Reportable Absolute Monocytes Not Reportable Absolute Eosinophils Not Reportable Absolute Basophils Not Reportable Sodium 139.1 Potassium 3.6 Chloride 98 Carbon Dioxide 31 H Anion Gap 10 BUN 6 L Creatinine 0.64 Est GFR ( Amer) > 60 Est GFR (Non-Af Amer) > 60 Glucose 92 Calcium 9.0 Impressions: Acute Abdomen Series 12/24/17 05:16 IMPRESSION: No acute findings. Abdomen X-Ray 12/27/17 00:00 IMPRESSION: There is air and stool in the colon. Nonspecific abdomen. Abdomen/Pelvis CT 12/28/17 00:00 IMPRESSION: Postop colonic ileus or pseudo-obstruction. Knee X-Ray 12/28/17 00:00 IMPRESSION: No fracture or dislocation of the right knee. Joint spaces are well preserved. No knee joint effusion. Osteopenia. Chest X-Ray 01/06/18 00:00 IMPRESSION: Patchy airspace disease right upper lobe, should be followed to radiographic clearing Assessment & Plan - Diagnosis (1) ALS (amyotrophic lateral sclerosis) Is this a current diagnosis for this admission?: Yes Plan: Is currently followed at [place] (2) Acute appendicitis Qualifiers: Acute appendicitis type: unspecified acute appendicitis type Qualified Code (s): K35.80 - Unspecified acute appendicitis Is this a current diagnosis for this admission?: Yes Plan: Status post surgery (3) Aortic atherosclerosis Is this a current diagnosis for this admission?: Yes (4) Aspiration pneumonia due to vomitus Qualifiers: Laterality: unspecified laterality Lung location: unspecified part of lung Qualified Code(s): J69.0 - Pneumonitis due to inhalation of food and vomit Is this a current diagnosis for this admission?: Yes Plan: Antibiotics we will repeat the chest x-ray (5) Chronic pain syndrome Is this a current diagnosis for this admission?: Yes (6) HTN (hypertension) Qualifiers: Hypertension type: essential hypertension Qualified Code(s): I10 - Essential (primary) hypertension Is this a current diagnosis for this admission?: Yes (7) Liver cirrhosis Qualifiers: Hepatic cirrhosis type: alcoholic cirrhosis Ascites presence: unspecified Qualified Code(s): K70.30 - Alcoholic cirrhosis of liver without ascites Is this a current diagnosis for this admission?: Yes (8) Anemia Qualifiers: Anemia type: unspecified type Qualified Code(s): D64.9 - Anemia, unspecified Is this a current diagnosis for this admission?: Yes Plan: Currently continues to monitor - Time Time Spent with patient: 15-24 minutes Medications reviewed and adjusted accordingly: Yes Anticipated discharge: SNF Within: Other - Inpatient Certification Based on my medical assessment, after consideration of the patient's comorbidities, presenting symptoms, or acuity I expect that the services needed warrant INPATIENT care.: Yes I certify that my determination is in accordance with my understanding of Medicare's requirements for reasonable and necessary INPATIENT services [42 CFR 412.3e].: Yes Medical Necessity: Need Close Monitoring Due to Risk of Patient Decompensation Post Hospital Care: D/C Surplus Property Disposal Agent Documentation - Plan Summary Plan Summary: Patient overall prognosis is poor due to the ongoing ALS issues
[2018-01-07] MEDS: LEVOFLOXACIN 500 MG/D5W RTU 500 MG/100 ML RTUPB IV SCH (10:59)
[2018-01-07] MEDS: POLYETHYLENE GLYCOL 3350 POWDER 17 GM/1 PACKET PO SCH ×2 (11:08→18:09)
[2018-01-07] MEDS: FERROUS SULFATE LIQUID 300 MG/5 ML UDC PO SCH (11:10)
[2018-01-07] MEDS: BACLOFEN 10 MG TABLET PO SCH ×2 (11:10→18:09)
[2018-01-07] MEDS: LISINOPRIL 10 MG TABLET PO SCH (11:11)
[2018-01-07] MEDS: TIOTROPIUM BROMIDE DPI 5 CAP/KIT (18 MCG/CAP) IH SCH (11:14)
[2018-01-07] MEDS: FLUTICASONE/SALMETEROL DISKUS 500-50 MCG/DOSE IH SCH ×2 (11:14→22:25)
[2018-01-07] MEDS: GLYCOPYRROLATE 1 MG TABLET PO SCH ×3 (11:14→18:02)
[2018-01-07 12:00] LABS: ABSOLUTE RETICS # 0.041 10^6/uL (0.028-0.122); RETICULOCYTE COUNT (AUTO) 1.44 % (0.66-2.85)
[2018-01-07 13:26] LABS: FOLATE > 20.00 ng/mL (>2.76); IRON(TIBC) < 10.1 ug/dL (49-181)
[2018-01-07] MEDS: AMITRIPTYLINE HCL 50 MG TABLET PO SCH (22:25)
[2018-01-08] MEDS: ALBUTEROL SULFATE 0.083% NEB 2.5 MG/3 ML AMPUL NEB SCH ×4 (02:12→22:12)
[2018-01-08 05:04] LABS: ANION GAP 9 (5-19); BLOOD UREA NITROGEN 8 mg/dL (7-20); CARBON DIOXIDE 33 mmol/L (22-30); CHLORIDE 97 mmol/L (98-107); GLUCOSE 90 mg/dL (75-110); POTASSIUM 3.9 mmol/L (3.6-5.0); SODIUM 139.3 mmol/L (137-145)
[2018-01-08] MEDS: OXYCODONE HCL IR 5 MG TABLET PEG PRN ×3 (05:25→20:36)
[2018-01-08] MEDS: LANSOPRAZOLE 30 MG TAB.RAP.DR PO SCH (05:25)
--- NOTE | 2018-01-08 09:15 | PDOC TRANSFER SUMMARY ---
General - Admit/Disc Date/PCP Admission Date/Primary Care Provider: 12/24/17 08:13 MICHELLE VILLASENOR MD Discharge Date: 01/08/18 - Discharge Diagnosis (1) ALS (amyotrophic lateral sclerosis) Is this a current diagnosis for this admission?: Yes Summary: Patient is currently see a [place] [facility] overall poor prognosis (2) Acute appendicitis Is this a current diagnosis for this admission?: Yes Summary: Status post surgery currently doing well follow-up with the [facility] (3) Aortic atherosclerosis Is this a current diagnosis for this admission?: Yes Summary: Currently all stable (4) Aspiration pneumonia due to vomitus Is this a current diagnosis for this admission?: Yes Summary: Patient is currently n.p.o. abdomen through the tube feeding patient is getting the Levaquin for another 7-day course (5) Chronic pain syndrome Is this a current diagnosis for this admission?: Yes Summary: She is currently on a pain medications per pain management (6) HTN (hypertension) Is this a current diagnosis for this admission?: Yes Summary: Currently all stable (7) Liver cirrhosis Is this a current diagnosis for this admission?: Yes Summary: She is currently seeing Dr. Velazquez as an outpatient (8) Anemia Is this a current diagnosis for this admission?: Yes Summary: Continues to iron tablets - Additional Information Resuscitation Status: Full Code Discharge Diet: Tube Feeding (Comments) Discharge Activity: Activity As Tolerated Prescriptions: Fluticasone/Salmeterol [Advair 500-50 Diskus 14 Dose/Diskus] 1 inh IH Q12 #60 inhaler Ipratropium/Albuterol Sulfate [Duoneb 3 ml Ampul] 3 ml NEB RTQ4HP PRN #120 vial.neb PRN Reason: Levofloxacin [Levaquin 500 mg Tablet] 500 mg PO DAILY #7 tablet Home Medications: Albuterol Sulfate [Proair HFA Inhalation Aerosol 8.5 gm MDI] 2 puff IH QIDP PRN 12/25/17 Albuterol Sulfate [Ventolin 0.083% Neb 2.5 mg/3 mL Ampul] 1 vial NEB RTQ6 Amitriptyline HCl [Elavil 50 mg Tablet] 100 mg PO QHS 12/25/17 Baclofen [Baclofen 10 mg Tablet] 5 mg PO BID 12/25/17 Ferrous Sulfate [Ferrous Sulfate 220 mg/5 ml Elix 60 ml] 440 mg PO DAILY Fluticasone/Salmeterol [Advair 500-50 Diskus 14 Dose/Diskus] 1 inh IH Q12 Glycopyrrolate [Robinul Forte 1 mg Tablet] 1 mg PO TID 12/25/17 Omeprazole 40 mg PO DAILY 12/25/17 Oxycodone HCl 15 mg PO Q6HP PRN 12/25/17 Riluzole [Rilutek] 50 mg PO Q12 12/25/17 Tiotropium Esperance [Spiriva Respimat] 2 puff IH QAM 12/25/17 Fluticasone/Salmeterol [Advair 500-50 Diskus 14 Dose/Diskus] 1 inh IH Q12 #60 inhaler 01/08/18 Ipratropium/Albuterol Sulfate [Duoneb 3 ml Ampul] 3 ml NEB RTQ4HP PRN #120 vial.neb 01/08/18 Levofloxacin [Levaquin 500 mg Tablet] 500 mg PO DAILY #7 tablet 01/08/18 History of Present Illness Admission Date/PCP: 12/24/17 08:13 MICHELLE VILLASENOR MD Patient complains of: Abdominal pain History of Present Illness: LAWANDA RECIO is a 62 year old male Present in the emergency department with acute abdominal pain in the right lower quadrant and patient's diagnosed with appendicitis and admitting in the hospital under surgical service Hospital Course Hospital Course: This is a 62-year-old male with a significant history of the ALS history of cirrhosis of the liver history of the anemia history of the asthma and multiple other comorbidity failure to thrive currently tube feeding Came to the emergency department with a complaining of acute abdominal pain patient underwent for a CT scan of the abdomen and pelvis which suggested acute appendicitis admitting in the surgical service and appendectomy was performed Patient also have a LS and aspirations pneumonia failure to thrive and currently on a tube feeding After the surgery patient's tube feeding was resumed currently getting thejVT 1.2-250 ccBolus every 4 times per day and 30 cc flush Patients need to adjust reevaluate the calories per dietitian recommendation in the rehab facilities Patient's chest x-ray is all stable blood work is all stable Overall patient's prognosis is very poor discussed with the patient's family and the brother regarding the patient's current conditions Patient at this point discharged to the rehab facilities and follow outpatient ALS clinic and Dr. Velazquez and [facility] Physical Exam Vital Signs: Temp Pulse Resp BP Pulse Ox 98.9 F 98 16 129/73 H 96 01/08/18 03:39 01/08/18 07:39 01/08/18 07:39 01/08/18 03:39 01/08/18 07:39 Intake & Output 01/07/18 01/08/18 01/09/18 06:59 06:59 06:59 Intake Total 2430 1150 Output Total 2500 1325 Balance -70 -175 Weight 65.1 kg 65.9 kg General appearance: PRESENT: no acute distress, thin Head exam: PRESENT: atraumatic, normocephalic Eye exam: PRESENT: conjunctiva pink, EOMI, PERRLA. ABSENT: scleral icterus Ear exam: PRESENT: normal external ear exam Mouth exam: PRESENT: moist, tongue midline Neck exam: ABSENT: carotid bruit, JVD, lymphadenopathy, thyromegaly Respiratory exam: PRESENT: clear to auscultation sandip. ABSENT: rales, rhonchi, wheezes Cardiovascular exam: PRESENT: RRR. ABSENT: diastolic murmur, rubs, systolic murmur Pulses: PRESENT: normal dorsalis pedis pul Vascular exam: PRESENT: normal capillary refill GI/Abdominal exam: PRESENT: normal bowel sounds, soft. ABSENT: distended, guarding, mass, organolmegaly, rebound, tenderness Rectal exam: PRESENT: deferred Extremities exam: PRESENT: full ROM. ABSENT: calf tenderness, clubbing, pedal edema Neurological exam: PRESENT: alert, awake, oriented to person, oriented to place , oriented to time, oriented to situation. ABSENT: motor sensory deficit Psychiatric exam: PRESENT: appropriate affect, normal mood. ABSENT: homicidal ideation, suicidal ideation Skin exam: PRESENT: dry, intact, warm. ABSENT: cyanosis, rash Results Laboratory Results: 01/07/18 04:40 01/08/18 03:50 01/07/18 01/07/18 01/08/18 10:49 10:49 03:50 Retic Count (auto) 1.44 Absolute Retic 0.041 Sodium 139.3 Potassium 3.9 Chloride 97 L Carbon Dioxide 33 H Anion Gap 9 BUN 8 Creatinine 0.75 Est GFR ( Amer) > 60 Est GFR (Non-Af Amer) > 60 Glucose 90 Calcium 9.0 Iron < 10.1 L TIBC 190 L % Saturation UNABLE TO CALCULATE Ferritin 152.00 Vitamin B12 847.0 Folate > 20.00 Impressions: Acute Abdomen Series 12/24/17 05:16 IMPRESSION: No acute findings. Abdomen X-Ray 12/27/17 00:00 IMPRESSION: There is air and stool in the colon. Nonspecific abdomen. Abdomen/Pelvis CT 12/28/17 00:00 IMPRESSION: Postop colonic ileus or pseudo-obstruction. Knee X-Ray 12/28/17 00:00 IMPRESSION: No fracture or dislocation of the right knee. Joint spaces are well preserved. No knee joint effusion. Osteopenia. Chest X-Ray 01/06/18 00:00 IMPRESSION: Patchy airspace disease right upper lobe, should be followed to radiographic clearing Transfer Plan - Time Spent with Patient Time spent with patient: Greater than 30 Minutes Qualifiers - * PATIENT BEING DISCHARGED WITH ANY OF THE FOLLOWING DIAGNOSIS: No VTE patient discharged on overlapping Therapy?: Yes Plan Time Spent: Greater than 30 Minutes - Follow CBC and Chem-7 in 1 week repeat the chest x-ray in 1 week follow outpatient [facility] in [facility] clinic he is currently tube feeding to 250 cc bolusAnd 30 cc flush every 6 hoursJVt 1.2
[2018-01-08] MEDS: LEVOFLOXACIN 500 MG/D5W RTU 500 MG/100 ML RTUPB IV SCH (09:43)
[2018-01-08] MEDS: FLUTICASONE/SALMETEROL DISKUS 500-50 MCG/DOSE IH SCH ×2 (09:48→22:34)
[2018-01-08] MEDS: BACLOFEN 10 MG TABLET PO SCH ×2 (09:48→17:46)
[2018-01-08] MEDS: FERROUS SULFATE LIQUID 300 MG/5 ML UDC PO SCH (09:49)
[2018-01-08] MEDS: POLYETHYLENE GLYCOL 3350 POWDER 17 GM/1 PACKET PO SCH ×2 (09:49→17:51)
[2018-01-08] MEDS: TIOTROPIUM BROMIDE DPI 5 CAP/KIT (18 MCG/CAP) IH SCH (09:50)
[2018-01-08] MEDS: LISINOPRIL 10 MG TABLET PO SCH (09:50)
[2018-01-08] MEDS: GLYCOPYRROLATE 1 MG TABLET PO SCH ×3 (09:50→17:45)
[2018-01-08] MEDS: AMITRIPTYLINE HCL 50 MG TABLET PO SCH (22:35)
[2018-01-09] MEDS: ALBUTEROL SULFATE 0.083% NEB 2.5 MG/3 ML AMPUL NEB SCH ×4 (02:14→20:35)
[2018-01-09] MEDS: LANSOPRAZOLE 30 MG TAB.RAP.DR PO SCH (06:21)
--- NOTE | 2018-01-09 08:28 | PDOC PROGRESS REPORT ---
Subjective Progress Note for:: 01/09/18 Subjective:: Patient is currently doing same he is awaiting rehab facilities Patient's denied any chest pain denied any shortness of the breath Patient's had a positive bowel movement Denied any abdominal pain Reason For Visit: ACUTE APPENDICITIS Physical Exam Vital Signs: Temp Pulse Resp BP Pulse Ox 99.3 F 97 17 124/77 98 01/09/18 03:51 01/09/18 07:00 01/09/18 03:51 01/09/18 03:51 01/09/18 03:51 Intake & Output 01/08/18 01/09/18 01/10/18 06:59 06:59 06:59 Intake Total 1150 550 Output Total 1325 1285 Balance -175 -735 Weight 65.9 kg 66.8 kg General appearance: PRESENT: no acute distress, thin Head exam: PRESENT: atraumatic, normocephalic Eye exam: PRESENT: conjunctiva pink, EOMI, PERRLA. ABSENT: scleral icterus Ear exam: PRESENT: normal external ear exam Mouth exam: PRESENT: moist, tongue midline Neck exam: PRESENT: full ROM. ABSENT: carotid bruit, JVD, lymphadenopathy, thyromegaly Respiratory exam: PRESENT: clear to auscultation sandip Cardiovascular exam: PRESENT: RRR. ABSENT: diastolic murmur, rubs, systolic murmur Pulses: PRESENT: normal dorsalis pedis pul, +2 pedal pulses bilateral Vascular exam: PRESENT: normal capillary refill GI/Abdominal exam: PRESENT: normal bowel sounds, soft. ABSENT: distended, guarding, mass, organolmegaly, rebound, tenderness Additonal comments: The PEG tube is intact Surgical staple is intact Rectal exam: PRESENT: deferred Extremities exam: ABSENT: pedal edema Neurological exam: PRESENT: alert, awake, oriented to person, oriented to place. ABSENT: motor sensory deficit Psychiatric exam: PRESENT: appropriate affect, normal mood. ABSENT: homicidal ideation, suicidal ideation Skin exam: PRESENT: dry, intact, warm. ABSENT: cyanosis, rash Results Laboratory Results: 01/07/18 04:40 01/08/18 03:50 01/03/18 08:15 Blood Blood Culture - Final NO GROWTH IN 5 DAYS 01/03/18 08:36 Blood Blood Culture - Final NO GROWTH IN 5 DAYS Impressions: Acute Abdomen Series 12/24/17 05:16 IMPRESSION: No acute findings. Abdomen X-Ray 12/27/17 00:00 IMPRESSION: There is air and stool in the colon. Nonspecific abdomen. Abdomen/Pelvis CT 12/28/17 00:00 IMPRESSION: Postop colonic ileus or pseudo-obstruction. Knee X-Ray 12/28/17 00:00 IMPRESSION: No fracture or dislocation of the right knee. Joint spaces are well preserved. No knee joint effusion. Osteopenia. Chest X-Ray 01/06/18 00:00 IMPRESSION: Patchy airspace disease right upper lobe, should be followed to radiographic clearing Assessment & Plan - Diagnosis (1) ALS (amyotrophic lateral sclerosis) Is this a current diagnosis for this admission?: Yes Plan: Is currently followed at [facility] (2) Acute appendicitis Qualifiers: Acute appendicitis type: unspecified acute appendicitis type Qualified Code (s): K35.80 - Unspecified acute appendicitis Is this a current diagnosis for this admission?: Yes Plan: Will ask the surgical first assistant to remove the staple and reexamined the abdomen before the patient's discharge (3) Aortic atherosclerosis Is this a current diagnosis for this admission?: Yes (4) Aspiration pneumonia due to vomitus Qualifiers: Laterality: unspecified laterality Lung location: unspecified part of lung Qualified Code(s): J69.0 - Pneumonitis due to inhalation of food and vomit Is this a current diagnosis for this admission?: Yes Plan: Antibiotics we will repeat the chest x-ray (5) Chronic pain syndrome Is this a current diagnosis for this admission?: Yes (6) HTN (hypertension) Qualifiers: Hypertension type: essential hypertension Qualified Code(s): I10 - Essential (primary) hypertension Is this a current diagnosis for this admission?: Yes (7) Liver cirrhosis Qualifiers: Hepatic cirrhosis type: alcoholic cirrhosis Ascites presence: unspecified Qualified Code(s): K70.30 - Alcoholic cirrhosis of liver without ascites Is this a current diagnosis for this admission?: Yes (8) Anemia Qualifiers: Anemia type: unspecified type Qualified Code(s): D64.9 - Anemia, unspecified Is this a current diagnosis for this admission?: Yes - Time Time Spent with patient: 15-24 minutes Medications reviewed and adjusted accordingly: Yes Anticipated discharge: SNF - Inpatient Certification Based on my medical assessment, after consideration of the patient's comorbidities, presenting symptoms, or acuity I expect that the services needed warrant INPATIENT care.: Yes I certify that my determination is in accordance with my understanding of Medicare's requirements for reasonable and necessary INPATIENT services [42 CFR 412.3e].: Yes Medical Necessity: Need Close Monitoring Due to Risk of Patient Decompensation Post Hospital Care: D/C Public Works Inspector Documentation - Plan Summary Plan Summary: DC the Morales catheter Past surgical history evaluate the surgical dressing and remove the laury Tried to call the patient's brother unable to answer will try again discussed with the nursing staff to try to contact the brother again and will talk the patient overall poor prognosis with ongoing progressive ALS
[2018-01-09] MEDS: FLUTICASONE/SALMETEROL DISKUS 500-50 MCG/DOSE IH SCH ×2 (11:28→22:45)
[2018-01-09] MEDS: GLYCOPYRROLATE 1 MG TABLET PO SCH ×3 (11:28→17:41)
[2018-01-09] MEDS: FERROUS SULFATE LIQUID 300 MG/5 ML UDC PO SCH (11:29)
[2018-01-09] MEDS: LISINOPRIL 10 MG TABLET PO SCH (11:29)
[2018-01-09] MEDS: BACLOFEN 10 MG TABLET PO SCH ×2 (11:29→17:41)
[2018-01-09] MEDS: POLYETHYLENE GLYCOL 3350 POWDER 17 GM/1 PACKET PO SCH ×2 (11:30→17:44)
[2018-01-09] MEDS: LEVOFLOXACIN 500 MG/D5W RTU 500 MG/100 ML RTUPB IV SCH (11:30)
[2018-01-09] MEDS: TIOTROPIUM BROMIDE DPI 5 CAP/KIT (18 MCG/CAP) IH SCH (11:31)
[2018-01-09] MEDS: OXYCODONE HCL IR 5 MG TABLET PEG PRN (19:46)
[2018-01-09] MEDS: AMITRIPTYLINE HCL 50 MG TABLET PO SCH (22:45)
[2018-01-10] MEDS: ALBUTEROL SULFATE 0.083% NEB 2.5 MG/3 ML AMPUL NEB SCH ×4 (01:52→19:51)
[2018-01-10] MEDS: LANSOPRAZOLE 30 MG TAB.RAP.DR PO SCH (05:58)
--- NOTE | 2018-01-10 07:47 | PDOC PROGRESS REPORT ---
Subjective Progress Note for:: 01/10/18 Subjective:: Patient is currently doing fair Patient is urinate without Morales any problems Patient have a physical therapy evaluation unable to participate due to the ongoing ALS weakness Other than that patient is without any chest pain without any shortness of breath Patient's abdominal surgical site the laury removed Reason For Visit: ACUTE APPENDICITIS Physical Exam Vital Signs: Temp Pulse Resp BP Pulse Ox 97.7 F 81 16 118/57 L 100 01/10/18 04:10 01/10/18 04:10 01/10/18 04:10 01/10/18 04:10 01/10/18 04:10 Intake & Output 01/09/18 01/10/18 01/11/18 06:59 06:59 06:59 Intake Total 550 820 Output Total 1285 500 Balance -735 320 Weight 66.8 kg 55 kg General appearance: PRESENT: no acute distress Head exam: PRESENT: atraumatic, normocephalic Eye exam: PRESENT: conjunctiva pink, EOMI, PERRLA. ABSENT: scleral icterus Ear exam: PRESENT: normal external ear exam Mouth exam: PRESENT: moist, tongue midline Neck exam: PRESENT: full ROM. ABSENT: carotid bruit, JVD, lymphadenopathy, thyromegaly Respiratory exam: PRESENT: clear to auscultation sandip Cardiovascular exam: PRESENT: RRR. ABSENT: diastolic murmur, rubs, systolic murmur Pulses: PRESENT: normal dorsalis pedis pul, +2 pedal pulses bilateral Vascular exam: PRESENT: normal capillary refill GI/Abdominal exam: PRESENT: normal bowel sounds, soft. ABSENT: distended, guarding, mass, organolmegaly, rebound, tenderness Rectal exam: PRESENT: deferred Extremities exam: ABSENT: pedal edema Neurological exam: PRESENT: alert, awake, oriented to person, oriented to place , oriented to time, oriented to situation. ABSENT: motor sensory deficit Psychiatric exam: PRESENT: appropriate affect, normal mood. ABSENT: homicidal ideation, suicidal ideation Skin exam: PRESENT: dry, intact, warm. ABSENT: cyanosis, rash Results Laboratory Results: 01/07/18 04:40 01/08/18 03:50 Impressions: Acute Abdomen Series 12/24/17 05:16 IMPRESSION: No acute findings. Abdomen X-Ray 12/27/17 00:00 IMPRESSION: There is air and stool in the colon. Nonspecific abdomen. Abdomen/Pelvis CT 12/28/17 00:00 IMPRESSION: Postop colonic ileus or pseudo-obstruction. Knee X-Ray 12/28/17 00:00 IMPRESSION: No fracture or dislocation of the right knee. Joint spaces are well preserved. No knee joint effusion. Osteopenia. Chest X-Ray 01/06/18 00:00 IMPRESSION: Patchy airspace disease right upper lobe, should be followed to radiographic clearing Assessment & Plan - Diagnosis (1) ALS (amyotrophic lateral sclerosis) Is this a current diagnosis for this admission?: Yes Plan: Is currently followed at [facility] (2) Acute appendicitis Qualifiers: Acute appendicitis type: unspecified acute appendicitis type Qualified Code (s): K35.80 - Unspecified acute appendicitis Is this a current diagnosis for this admission?: Yes Plan: Will ask the surgical garment assembly supervisor to remove the staple and reexamined the abdomen before the patient's discharge (3) Aortic atherosclerosis Is this a current diagnosis for this admission?: Yes (4) Aspiration pneumonia due to vomitus Qualifiers: Laterality: unspecified laterality Lung location: unspecified part of lung Qualified Code(s): J69.0 - Pneumonitis due to inhalation of food and vomit Is this a current diagnosis for this admission?: Yes Plan: Antibiotics we will repeat the chest x-ray (5) Chronic pain syndrome Is this a current diagnosis for this admission?: Yes (6) HTN (hypertension) Qualifiers: Hypertension type: essential hypertension Qualified Code(s): I10 - Essential (primary) hypertension Is this a current diagnosis for this admission?: Yes (7) Liver cirrhosis Qualifiers: Hepatic cirrhosis type: alcoholic cirrhosis Ascites presence: unspecified Qualified Code(s): K70.30 - Alcoholic cirrhosis of liver without ascites Is this a current diagnosis for this admission?: Yes (8) Anemia Qualifiers: Anemia type: unspecified type Qualified Code(s): D64.9 - Anemia, unspecified Is this a current diagnosis for this admission?: Yes (9) Stage I decubitus ulcer and pressure area Qualifiers: Pressure injury location: sacral region Qualified Code(s): L89.151 - Pressure ulcer of sacral region, stage 1 Is this a current diagnosis for this admission?: Yes Plan: Continues to dressing change - Time Time Spent with patient: 15-24 minutes Medications reviewed and adjusted accordingly: Yes Anticipated discharge: SNF Within: when bed available - Inpatient Certification Based on my medical assessment, after consideration of the patient's comorbidities, presenting symptoms, or acuity I expect that the services needed warrant INPATIENT care.: Yes I certify that my determination is in accordance with my understanding of Medicare's requirements for reasonable and necessary INPATIENT services [42 CFR 412.3e].: Yes Post Hospital Care: D/C Director Of Learning Documentation - Plan Summary Plan Summary: Continues to current medications Again try to contact the brother unable to contact it nurses will try again Patient has overall poor prognosis due to the ongoing ALS weakness with multiple other comorbidity
[2018-01-10] MEDS: POLYETHYLENE GLYCOL 3350 POWDER 17 GM/1 PACKET PO SCH ×2 (10:02→17:15)
[2018-01-10] MEDS: OXYCODONE HCL IR 5 MG TABLET PEG PRN ×3 (10:08→23:55)
[2018-01-10] MEDS: BACLOFEN 10 MG TABLET PO SCH ×2 (10:08→17:21)
[2018-01-10] MEDS: GLYCOPYRROLATE 1 MG TABLET PO SCH ×3 (10:09→17:21)
[2018-01-10] MEDS: TIOTROPIUM BROMIDE DPI 5 CAP/KIT (18 MCG/CAP) IH SCH (10:09)
[2018-01-10] MEDS: FLUTICASONE/SALMETEROL DISKUS 500-50 MCG/DOSE IH SCH ×2 (10:10→21:07)
[2018-01-10] MEDS: FERROUS SULFATE LIQUID 300 MG/5 ML UDC PO SCH (10:17)
[2018-01-10] MEDS: LISINOPRIL 10 MG TABLET PO SCH (10:17)
[2018-01-10] MEDS: LEVOFLOXACIN 500 MG TABLET PO SCH (13:18)
[2018-01-10] MEDS: AMITRIPTYLINE HCL 50 MG TABLET PO SCH (21:07)
[2018-01-11] MEDS: ALBUTEROL SULFATE 0.083% NEB 2.5 MG/3 ML AMPUL NEB SCH ×4 (02:00→21:00)
[2018-01-11] MEDS: LANSOPRAZOLE 30 MG TAB.RAP.DR PO SCH (05:30)
[2018-01-11] MEDS: OXYCODONE HCL IR 5 MG TABLET PEG PRN ×3 (06:02→22:21)
[2018-01-11] MEDS: FERROUS SULFATE LIQUID 300 MG/5 ML UDC PO SCH (07:48)
--- NOTE | 2018-01-11 08:15 | PDOC PROGRESS REPORT ---
Subjective Progress Note for:: 01/11/18 Subjective:: Patients denied any chest pain denied any shortness of the breath Patients awit to [facility]hab [facility] Reason For Visit: ACUTE APPENDICITIS Physical Exam Vital Signs: Temp Pulse Resp BP Pulse Ox 97.5 F 88 16 109/53 L 96 01/11/18 04:24 01/11/18 04:24 01/11/18 04:24 01/11/18 04:24 01/11/18 04:24 Intake & Output 01/10/18 01/11/18 01/12/18 06:59 06:59 06:59 Intake Total 820 480 Output Total 500 Balance 320 480 Weight 55 kg 55.1 kg General appearance: PRESENT: no acute distress, thin, other Head exam: PRESENT: atraumatic, normocephalic Eye exam: PRESENT: conjunctiva pink, EOMI, PERRLA. ABSENT: scleral icterus Ear exam: PRESENT: normal external ear exam Mouth exam: PRESENT: moist, tongue midline Neck exam: PRESENT: full ROM. ABSENT: carotid bruit, JVD, lymphadenopathy, thyromegaly Respiratory exam: PRESENT: clear to auscultation sandip Cardiovascular exam: PRESENT: RRR. ABSENT: diastolic murmur, rubs, systolic murmur Pulses: PRESENT: normal dorsalis pedis pul, +2 pedal pulses bilateral Vascular exam: PRESENT: normal capillary refill GI/Abdominal exam: PRESENT: normal bowel sounds, soft. ABSENT: distended, guarding, mass, organolmegaly, rebound, tenderness Rectal exam: PRESENT: deferred Neurological exam: PRESENT: alert, awake, oriented to person, oriented to place , oriented to time, oriented to situation. ABSENT: motor sensory deficit Psychiatric exam: PRESENT: appropriate affect, normal mood. ABSENT: homicidal ideation, suicidal ideation Skin exam: PRESENT: dry, intact, warm. ABSENT: cyanosis, rash Results Laboratory Results: 01/07/18 04:40 01/08/18 03:50 Impressions: Acute Abdomen Series 12/24/17 05:16 IMPRESSION: No acute findings. Abdomen X-Ray 12/27/17 00:00 IMPRESSION: There is air and stool in the colon. Nonspecific abdomen. Abdomen/Pelvis CT 12/28/17 00:00 IMPRESSION: Postop colonic ileus or pseudo-obstruction. Knee X-Ray 12/28/17 00:00 IMPRESSION: No fracture or dislocation of the right knee. Joint spaces are well preserved. No knee joint effusion. Osteopenia. Chest X-Ray 01/06/18 00:00 IMPRESSION: Patchy airspace disease right upper lobe, should be followed to radiographic clearing Assessment & Plan - Diagnosis (1) ALS (amyotrophic lateral sclerosis) Is this a current diagnosis for this admission?: Yes Plan: Is currently followed at [facility] (2) Acute appendicitis Qualifiers: Acute appendicitis type: unspecified acute appendicitis type Qualified Code (s): K35.80 - Unspecified acute appendicitis Is this a current diagnosis for this admission?: Yes Plan: Will ask the medical surgical tech to remove the staple and reexamined the abdomen before the patient's discharge (3) Aortic atherosclerosis Is this a current diagnosis for this admission?: Yes (4) Aspiration pneumonia due to vomitus Qualifiers: Laterality: unspecified laterality Lung location: unspecified part of lung Qualified Code(s): J69.0 - Pneumonitis due to inhalation of food and vomit Is this a current diagnosis for this admission?: Yes Plan: Antibiotics we will repeat the chest x-ray (5) Chronic pain syndrome Is this a current diagnosis for this admission?: Yes (6) HTN (hypertension) Qualifiers: Hypertension type: essential hypertension Qualified Code(s): I10 - Essential (primary) hypertension Is this a current diagnosis for this admission?: Yes (7) Liver cirrhosis Qualifiers: Hepatic cirrhosis type: alcoholic cirrhosis Ascites presence: unspecified Qualified Code(s): K70.30 - Alcoholic cirrhosis of liver without ascites Is this a current diagnosis for this admission?: Yes (8) Anemia Qualifiers: Anemia type: unspecified type Qualified Code(s): D64.9 - Anemia, unspecified Is this a current diagnosis for this admission?: Yes Plan: Currently continues to monitor (9) Stage I decubitus ulcer and pressure area Qualifiers: Pressure injury location: sacral region Qualified Code(s): L89.151 - Pressure ulcer of sacral region, stage 1 Is this a current diagnosis for this admission?: Yes Plan: Continues to dressing change - Time Time Spent with patient: 15-24 minutes Medications reviewed and adjusted accordingly: Yes Anticipated discharge: SNF Within: when bed available - Inpatient Certification Based on my medical assessment, after consideration of the patient's comorbidities, presenting symptoms, or acuity I expect that the services needed warrant INPATIENT care.: Yes I certify that my determination is in accordance with my understanding of Medicare's requirements for reasonable and necessary INPATIENT services [42 CFR 412.3e].: Yes Medical Necessity: Need Close Monitoring Due to Risk of Patient Decompensation Post Hospital Care: D/C Filbert Grower Documentation - Plan Summary Plan Summary: cont curr med
[2018-01-11] MEDS: LISINOPRIL 10 MG TABLET PO SCH (09:57)
[2018-01-11] MEDS: BACLOFEN 10 MG TABLET PO SCH ×2 (09:57→17:54)
[2018-01-11] MEDS: POLYETHYLENE GLYCOL 3350 POWDER 17 GM/1 PACKET PO SCH ×2 (09:57→17:53)
[2018-01-11] MEDS: GLYCOPYRROLATE 1 MG TABLET PO SCH ×3 (09:58→17:54)
[2018-01-11] MEDS: TIOTROPIUM BROMIDE DPI 5 CAP/KIT (18 MCG/CAP) IH SCH (10:01)
[2018-01-11] MEDS: FLUTICASONE/SALMETEROL DISKUS 500-50 MCG/DOSE IH SCH ×2 (10:02→22:15)
[2018-01-11] MEDS: LEVOFLOXACIN 500 MG TABLET PO SCH (11:35)
[2018-01-11] MEDS: AMITRIPTYLINE HCL 50 MG TABLET PO SCH (22:22)
[2018-01-12] MEDS: ALBUTEROL SULFATE 0.083% NEB 2.5 MG/3 ML AMPUL NEB SCH ×4 (02:23→20:53)
[2018-01-12] MEDS: LANSOPRAZOLE 30 MG TAB.RAP.DR PO SCH (05:41)
--- NOTE | 2018-01-12 08:10 | PDOC PROGRESS REPORT ---
Subjective Progress Note for:: 01/12/18 Subjective:: Patients denied any chest pain denied any shortness of the breath Patients awit to tran[facility]hab [facility] Reason For Visit: ACUTE APPENDICITIS Physical Exam Vital Signs: Temp Pulse Resp BP Pulse Ox 97.6 F 83 14 136/53 H 98 01/12/18 04:03 01/12/18 07:41 01/12/18 07:41 01/12/18 04:03 01/12/18 07:41 Intake & Output 01/11/18 01/12/18 01/13/18 06:59 06:59 06:59 Intake Total 480 1280 Balance 480 1280 Weight 55.1 kg 58.5 kg General appearance: PRESENT: no acute distress Head exam: PRESENT: atraumatic, normocephalic Eye exam: PRESENT: conjunctiva pink, EOMI, PERRLA. ABSENT: scleral icterus Ear exam: PRESENT: normal external ear exam Mouth exam: PRESENT: moist, tongue midline Neck exam: PRESENT: full ROM. ABSENT: carotid bruit, JVD, lymphadenopathy, thyromegaly Respiratory exam: PRESENT: clear to auscultation sandip Cardiovascular exam: PRESENT: RRR. ABSENT: diastolic murmur, rubs, systolic murmur Pulses: PRESENT: normal dorsalis pedis pul, +2 pedal pulses bilateral Vascular exam: PRESENT: normal capillary refill GI/Abdominal exam: PRESENT: normal bowel sounds, soft. ABSENT: distended, guarding, mass, organolmegaly, rebound, tenderness Rectal exam: PRESENT: deferred Neurological exam: PRESENT: alert, awake, oriented to person, oriented to place , oriented to time, oriented to situation. ABSENT: motor sensory deficit Psychiatric exam: PRESENT: appropriate affect, normal mood. ABSENT: homicidal ideation, suicidal ideation Skin exam: PRESENT: dry, intact, warm. ABSENT: cyanosis, rash Results Laboratory Results: 01/07/18 04:40 01/08/18 03:50 Impressions: Acute Abdomen Series 12/24/17 05:16 IMPRESSION: No acute findings. Abdomen X-Ray 12/27/17 00:00 IMPRESSION: There is air and stool in the colon. Nonspecific abdomen. Abdomen/Pelvis CT 12/28/17 00:00 IMPRESSION: Postop colonic ileus or pseudo-obstruction. Knee X-Ray 12/28/17 00:00 IMPRESSION: No fracture or dislocation of the right knee. Joint spaces are well preserved. No knee joint effusion. Osteopenia. Chest X-Ray 01/06/18 00:00 IMPRESSION: Patchy airspace disease right upper lobe, should be followed to radiographic clearing Assessment & Plan - Diagnosis (1) ALS (amyotrophic lateral sclerosis) Is this a current diagnosis for this admission?: Yes Plan: Is currently followed at [facility] (2) Acute appendicitis Qualifiers: Acute appendicitis type: unspecified acute appendicitis type Qualified Code (s): K35.80 - Unspecified acute appendicitis Is this a current diagnosis for this admission?: Yes Plan: Will ask the surgical processor to remove the staple and reexamined the abdomen before the patient's discharge (3) Aortic atherosclerosis Is this a current diagnosis for this admission?: Yes (4) Aspiration pneumonia due to vomitus Qualifiers: Laterality: unspecified laterality Lung location: unspecified part of lung Qualified Code(s): J69.0 - Pneumonitis due to inhalation of food and vomit Is this a current diagnosis for this admission?: Yes Plan: Antibiotics we will repeat the chest x-ray (5) Chronic pain syndrome Is this a current diagnosis for this admission?: Yes (6) HTN (hypertension) Qualifiers: Hypertension type: essential hypertension Qualified Code(s): I10 - Essential (primary) hypertension Is this a current diagnosis for this admission?: Yes (7) Liver cirrhosis Qualifiers: Hepatic cirrhosis type: alcoholic cirrhosis Ascites presence: unspecified Qualified Code(s): K70.30 - Alcoholic cirrhosis of liver without ascites Is this a current diagnosis for this admission?: Yes (8) Anemia Qualifiers: Anemia type: unspecified type Qualified Code(s): D64.9 - Anemia, unspecified Is this a current diagnosis for this admission?: Yes Plan: Currently continues to monitor (9) Stage I decubitus ulcer and pressure area Qualifiers: Pressure injury location: sacral region Qualified Code(s): L89.151 - Pressure ulcer of sacral region, stage 1 Is this a current diagnosis for this admission?: Yes Plan: Continues to dressing change - Time Time Spent with patient: 15-24 minutes Medications reviewed and adjusted accordingly: Yes Anticipated discharge: SNF Within: when bed available - Inpatient Certification Based on my medical assessment, after consideration of the patient's comorbidities, presenting symptoms, or acuity I expect that the services needed warrant INPATIENT care.: Yes I certify that my determination is in accordance with my understanding of Medicare's requirements for reasonable and necessary INPATIENT services [42 CFR 412.3e].: Yes Medical Necessity: Need Close Monitoring Due to Risk of Patient Decompensation Post Hospital Care: D/C Manager Real Estate Documentation - Plan Summary Plan Summary: See MD cobos
[2018-01-12] MEDS: FERROUS SULFATE LIQUID 300 MG/5 ML UDC PO SCH (08:42)
[2018-01-12] MEDS: OXYCODONE HCL IR 5 MG TABLET PEG PRN ×2 (09:03→17:57)
[2018-01-12] MEDS: POLYETHYLENE GLYCOL 3350 POWDER 17 GM/1 PACKET PO SCH ×2 (09:04→17:51)
[2018-01-12] MEDS: BACLOFEN 10 MG TABLET PO SCH ×2 (09:04→17:57)
[2018-01-12] MEDS: LISINOPRIL 10 MG TABLET PO SCH (09:04)
[2018-01-12] MEDS: FLUTICASONE/SALMETEROL DISKUS 500-50 MCG/DOSE IH SCH ×2 (09:05→22:30)
[2018-01-12] MEDS: TIOTROPIUM BROMIDE DPI 5 CAP/KIT (18 MCG/CAP) IH SCH (09:05)
[2018-01-12] MEDS: GLYCOPYRROLATE 1 MG TABLET PO SCH ×3 (09:07→17:57)
[2018-01-12] MEDS: LEVOFLOXACIN 500 MG TABLET PO SCH (13:19)
[2018-01-12] MEDS: AMITRIPTYLINE HCL 50 MG TABLET PO SCH (23:21)
[2018-01-13] MEDS: ALBUTEROL SULFATE 0.083% NEB 2.5 MG/3 ML AMPUL NEB SCH ×4 (02:02→19:30)
[2018-01-13] MEDS: LANSOPRAZOLE 30 MG TAB.RAP.DR PO SCH (05:26)
[2018-01-13] MEDS: OXYCODONE HCL IR 5 MG TABLET PEG PRN ×3 (11:20→23:42)
[2018-01-13] MEDS: POLYETHYLENE GLYCOL 3350 POWDER 17 GM/1 PACKET PO SCH ×2 (11:37→17:11)
[2018-01-13] MEDS: FERROUS SULFATE LIQUID 300 MG/5 ML UDC PO SCH (11:37)
[2018-01-13] MEDS: FLUTICASONE/SALMETEROL DISKUS 500-50 MCG/DOSE IH SCH ×2 (11:38→22:42)
[2018-01-13] MEDS: LISINOPRIL 10 MG TABLET PO SCH (11:38)
[2018-01-13] MEDS: GLYCOPYRROLATE 1 MG TABLET PO SCH ×3 (11:38→17:10)
[2018-01-13] MEDS: BACLOFEN 10 MG TABLET PO SCH ×2 (11:38→17:10)
[2018-01-13] MEDS: LEVOFLOXACIN 500 MG TABLET PO SCH (11:39)
[2018-01-13] MEDS: TIOTROPIUM BROMIDE DPI 5 CAP/KIT (18 MCG/CAP) IH SCH (11:39)
--- NOTE | 2018-01-13 17:48 | PDOC PROGRESS REPORT ---
Subjective Progress Note for:: 01/13/18 Subjective:: Patient seen by the bedside, awaiting disposition, the nurse stated that patient had episode of retention of urine Reason For Visit: ACUTE APPENDICITIS Physical Exam Vital Signs: Temp Pulse Resp BP Pulse Ox 98.5 F 89 16 134/62 H 97 01/13/18 11:29 01/13/18 14:00 01/13/18 14:00 01/13/18 11:29 01/13/18 14:00 Intake & Output 01/12/18 01/13/18 01/14/18 06:59 06:59 06:59 Intake Total 1280 1450 Balance 1280 1450 Weight 58.5 kg 56 kg General appearance: PRESENT: no acute distress Eye exam: PRESENT: PERRLA Respiratory exam: PRESENT: clear to auscultation sandip Cardiovascular exam: PRESENT: +S1, +S2 GI/Abdominal exam: PRESENT: soft Neurological exam: PRESENT: alert Results Laboratory Results: 01/07/18 04:40 01/08/18 03:50 Impressions: Acute Abdomen Series 12/24/17 05:16 IMPRESSION: No acute findings. Abdomen X-Ray 12/27/17 00:00 IMPRESSION: There is air and stool in the colon. Nonspecific abdomen. Abdomen/Pelvis CT 12/28/17 00:00 IMPRESSION: Postop colonic ileus or pseudo-obstruction. Knee X-Ray 12/28/17 00:00 IMPRESSION: No fracture or dislocation of the right knee. Joint spaces are well preserved. No knee joint effusion. Osteopenia. Chest X-Ray 01/06/18 00:00 IMPRESSION: Patchy airspace disease right upper lobe, should be followed to radiographic clearing Assessment & Plan - Diagnosis (1) ALS (amyotrophic lateral sclerosis) Is this a current diagnosis for this admission?: Yes (2) Fecal impaction Is this a current diagnosis for this admission?: Yes (3) Acute appendicitis Qualifiers: Acute appendicitis type: unspecified acute appendicitis type Qualified Code (s): K35.80 - Unspecified acute appendicitis Is this a current diagnosis for this admission?: Yes
[2018-01-13] MEDS: AMITRIPTYLINE HCL 50 MG TABLET PO SCH (23:42)
[2018-01-14] MEDS: ALBUTEROL SULFATE 0.083% NEB 2.5 MG/3 ML AMPUL NEB SCH ×4 (02:25→20:45)
[2018-01-14] MEDS: LANSOPRAZOLE 30 MG TAB.RAP.DR PO SCH (06:43)
[2018-01-14] MEDS: OXYCODONE HCL IR 5 MG TABLET PEG PRN ×3 (06:43→20:10)
[2018-01-14] MEDS: FLUTICASONE/SALMETEROL DISKUS 500-50 MCG/DOSE IH SCH ×2 (10:08→23:07)
[2018-01-14] MEDS: POLYETHYLENE GLYCOL 3350 POWDER 17 GM/1 PACKET PO SCH ×2 (10:09→17:39)
[2018-01-14] MEDS: TIOTROPIUM BROMIDE DPI 5 CAP/KIT (18 MCG/CAP) IH SCH (10:09)
[2018-01-14] MEDS: FERROUS SULFATE LIQUID 300 MG/5 ML UDC PO SCH (10:44)
[2018-01-14] MEDS: BACLOFEN 10 MG TABLET PO SCH ×2 (10:45→18:01)
[2018-01-14] MEDS: LISINOPRIL 10 MG TABLET PO SCH (10:51)
[2018-01-14] MEDS: GLYCOPYRROLATE 1 MG TABLET PO SCH ×3 (10:52→18:01)
[2018-01-14] MEDS: LEVOFLOXACIN 500 MG TABLET PO SCH (11:49)
--- NOTE | 2018-01-14 19:04 | PDOC PROGRESS REPORT ---
Subjective Progress Note for:: 01/14/18 Subjective:: Patient seen by the bedside there is no new complaints Reason For Visit: ACUTE APPENDICITIS Physical Exam Vital Signs: Temp Pulse Resp BP Pulse Ox 97.7 F 109 H 20 92/58 L 95 01/14/18 16:00 01/14/18 16:00 01/14/18 16:00 01/14/18 16:00 01/14/18 16:00 Intake & Output 01/13/18 01/14/18 01/15/18 06:59 06:59 06:59 Intake Total 1450 540 420 Balance 1450 540 420 Weight 56 kg 56.6 kg General appearance: PRESENT: no acute distress Eye exam: PRESENT: PERRLA Respiratory exam: PRESENT: clear to auscultation sandip Cardiovascular exam: PRESENT: +S1, +S2 GI/Abdominal exam: PRESENT: soft Neurological exam: PRESENT: alert, CN II-XII grossly intact Results Laboratory Results: 01/07/18 04:40 01/08/18 03:50 Impressions: Acute Abdomen Series 12/24/17 05:16 IMPRESSION: No acute findings. Abdomen X-Ray 12/27/17 00:00 IMPRESSION: There is air and stool in the colon. Nonspecific abdomen. Abdomen/Pelvis CT 12/28/17 00:00 IMPRESSION: Postop colonic ileus or pseudo-obstruction. Knee X-Ray 12/28/17 00:00 IMPRESSION: No fracture or dislocation of the right knee. Joint spaces are well preserved. No knee joint effusion. Osteopenia. Chest X-Ray 01/06/18 00:00 IMPRESSION: Patchy airspace disease right upper lobe, should be followed to radiographic clearing Assessment & Plan - Diagnosis (1) ALS (amyotrophic lateral sclerosis) Is this a current diagnosis for this admission?: Yes (2) Fecal impaction Is this a current diagnosis for this admission?: Yes (3) Acute appendicitis Qualifiers: Acute appendicitis type: unspecified acute appendicitis type Qualified Code (s): K35.80 - Unspecified acute appendicitis Is this a current diagnosis for this admission?: Yes
[2018-01-14] MEDS: AMITRIPTYLINE HCL 50 MG TABLET PO SCH (23:07)
[2018-01-15] MEDS: ALBUTEROL SULFATE 0.083% NEB 2.5 MG/3 ML AMPUL NEB SCH ×4 (02:10→19:19)
[2018-01-15] MEDS: OXYCODONE HCL IR 5 MG TABLET PEG PRN ×3 (06:19→20:23)
[2018-01-15] MEDS: LANSOPRAZOLE 30 MG TAB.RAP.DR PO SCH (06:20)
[2018-01-15] MEDS: FLUTICASONE/SALMETEROL DISKUS 500-50 MCG/DOSE IH SCH ×2 (09:51→23:11)
[2018-01-15] MEDS: POLYETHYLENE GLYCOL 3350 POWDER 17 GM/1 PACKET PO SCH ×2 (09:51→17:34)
[2018-01-15] MEDS: TIOTROPIUM BROMIDE DPI 5 CAP/KIT (18 MCG/CAP) IH SCH (09:51)
[2018-01-15] MEDS: FERROUS SULFATE LIQUID 300 MG/5 ML UDC PO SCH (10:01)
[2018-01-15] MEDS: LISINOPRIL 10 MG TABLET PO SCH (10:02)
[2018-01-15] MEDS: GLYCOPYRROLATE 1 MG TABLET PO SCH ×3 (10:02→17:34)
[2018-01-15] MEDS: BACLOFEN 10 MG TABLET PO SCH ×2 (10:02→17:34)
[2018-01-15] MEDS: LEVOFLOXACIN 500 MG TABLET PO SCH (13:02)
--- NOTE | 2018-01-15 13:29 | PDOC PROGRESS REPORT ---
Subjective Progress Note for:: 01/15/18 Subjective:: Patients denied any chest pain denied any shortness of the breath Patients awit to tranfer rehab [facility] Reason For Visit: ACUTE APPENDICITIS Physical Exam Vital Signs: Temp Pulse Resp BP Pulse Ox 97.4 F 88 16 93/51 L 99 01/15/18 12:00 01/15/18 12:00 01/15/18 12:00 01/15/18 12:00 01/15/18 12:00 Intake & Output 01/14/18 01/15/18 01/16/18 06:59 06:59 06:59 Intake Total 540 970 210 Balance 540 970 210 Weight 56.6 kg 56 kg General appearance: PRESENT: no acute distress, well-developed, well-nourished Head exam: PRESENT: atraumatic, normocephalic Eye exam: PRESENT: conjunctiva pink, EOMI, PERRLA. ABSENT: scleral icterus Ear exam: PRESENT: normal external ear exam Mouth exam: PRESENT: moist, tongue midline Neck exam: PRESENT: full ROM. ABSENT: carotid bruit, JVD, lymphadenopathy, thyromegaly Respiratory exam: PRESENT: clear to auscultation sandip Cardiovascular exam: PRESENT: RRR. ABSENT: diastolic murmur, rubs, systolic murmur Pulses: PRESENT: normal dorsalis pedis pul, +2 pedal pulses bilateral Vascular exam: PRESENT: normal capillary refill GI/Abdominal exam: PRESENT: normal bowel sounds, soft. ABSENT: distended, guarding, mass, organolmegaly, rebound, tenderness Rectal exam: PRESENT: deferred Extremities exam: ABSENT: pedal edema Neurological exam: PRESENT: alert, awake, oriented to person, oriented to place , oriented to time, oriented to situation. ABSENT: motor sensory deficit Psychiatric exam: PRESENT: appropriate affect, normal mood. ABSENT: homicidal ideation, suicidal ideation Skin exam: PRESENT: dry, intact, warm. ABSENT: cyanosis, rash Results Laboratory Results: 01/07/18 04:40 01/08/18 03:50 Impressions: Acute Abdomen Series 12/24/17 05:16 IMPRESSION: No acute findings. Abdomen X-Ray 12/27/17 00:00 IMPRESSION: There is air and stool in the colon. Nonspecific abdomen. Abdomen/Pelvis CT 12/28/17 00:00 IMPRESSION: Postop colonic ileus or pseudo-obstruction. Knee X-Ray 12/28/17 00:00 IMPRESSION: No fracture or dislocation of the right knee. Joint spaces are well preserved. No knee joint effusion. Osteopenia. Chest X-Ray 01/06/18 00:00 IMPRESSION: Patchy airspace disease right upper lobe, should be followed to radiographic clearing Assessment & Plan - Diagnosis (1) ALS (amyotrophic lateral sclerosis) Is this a current diagnosis for this admission?: Yes Plan: Is currently followed at [facility] (2) Acute appendicitis Qualifiers: Acute appendicitis type: unspecified acute appendicitis type Qualified Code (s): K35.80 - Unspecified acute appendicitis Is this a current diagnosis for this admission?: Yes Plan: Will ask the surgical supply assistant to remove the staple and reexamined the abdomen before the patient's discharge (3) Aortic atherosclerosis Is this a current diagnosis for this admission?: Yes (4) Aspiration pneumonia due to vomitus Qualifiers: Laterality: unspecified laterality Lung location: unspecified part of lung Qualified Code(s): J69.0 - Pneumonitis due to inhalation of food and vomit Is this a current diagnosis for this admission?: Yes Plan: Antibiotics we will repeat the chest x-ray (5) Chronic pain syndrome Is this a current diagnosis for this admission?: Yes (6) HTN (hypertension) Qualifiers: Hypertension type: essential hypertension Qualified Code(s): I10 - Essential (primary) hypertension Is this a current diagnosis for this admission?: Yes (7) Liver cirrhosis Qualifiers: Hepatic cirrhosis type: alcoholic cirrhosis Ascites presence: unspecified Qualified Code(s): K70.30 - Alcoholic cirrhosis of liver without ascites Is this a current diagnosis for this admission?: Yes (8) Anemia Qualifiers: Anemia type: unspecified type Qualified Code(s): D64.9 - Anemia, unspecified Is this a current diagnosis for this admission?: Yes Plan: Currently continues to monitor (9) Stage I decubitus ulcer and pressure area Qualifiers: Pressure injury location: sacral region Qualified Code(s): L89.151 - Pressure ulcer of sacral region, stage 1 Is this a current diagnosis for this admission?: Yes Plan: Continues to dressing change - Time Time Spent with patient: 15-24 minutes Medications reviewed and adjusted accordingly: Yes Anticipated discharge: SNF Within: when bed available - Plan Summary Plan Summary: Continues to current medication
--- NOTE | 2018-01-15 15:58 | Progress Note ---
Provider Note Provider Note: ID Consult Note Asked by Pharmacy to review patient's chart. Pt not seen or examined. Mr Fernández is a 62 year old man with ALS s/p PEG tube and COPD who was admitted on with R sided abdominal pain. He underwent appendectomy for acute appendicitis. Postoperative course was complicated by fecal impaction. He was also diagnosed with aspiration pneumonia involving the RUL. Per most recent notes, pt has no new complaints. He has clear lungs bilaterally. Benign abndomen noted on exam. He has no fever. His WBC count is normal. He recieved IV Flagyl from 12/24-12/31 and IV Levaquin from 12/28-present. Impression/Recommendations 1. Uncomplicated acute appendicitis s/p appendectomy, definitively managed, no indication for further antibiotics. 2. Pt also received diagnosis of aspiration pneumonia. For this, pt has completed a sufficient antibiotic course. Recommend discontinuing Levaquin. Christopher Strickland MD [facility] Infectious Diseases pager [phone]
[2018-01-15] MEDS: AMITRIPTYLINE HCL 50 MG TABLET PO SCH (22:44)
[2018-01-16] MEDS: ALBUTEROL SULFATE 0.083% NEB 2.5 MG/3 ML AMPUL NEB SCH ×4 (02:26→19:35)
[2018-01-16] MEDS: OXYCODONE HCL IR 5 MG TABLET PEG PRN ×2 (05:07→18:39)
[2018-01-16] MEDS: LANSOPRAZOLE 30 MG TAB.RAP.DR PO SCH (05:08)
--- NOTE | 2018-01-16 08:31 | PDOC PROGRESS REPORT ---
Subjective Progress Note for:: 01/16/18 Subjective:: It is currently doing same Patient with no motivations to move Discussed with the patient to at least sit in the chair Patient's otherwise no other issue According to the nursing stem have issue with some urinary bladder problems will check it again if is still issue will be put the Morales back Reason For Visit: ACUTE APPENDICITIS Physical Exam Vital Signs: Temp Pulse Resp BP Pulse Ox 97.5 F 92 20 104/61 97 01/16/18 08:11 01/16/18 08:11 01/16/18 08:11 01/16/18 08:11 01/16/18 08:11 Intake & Output 01/15/18 01/16/18 01/17/18 06:59 06:59 06:59 Intake Total 970 960 180 Balance 970 960 180 Weight 56 kg 56.8 kg General appearance: PRESENT: no acute distress Head exam: PRESENT: atraumatic, normocephalic Eye exam: PRESENT: conjunctiva pink, EOMI, PERRLA. ABSENT: scleral icterus Ear exam: PRESENT: normal external ear exam Mouth exam: PRESENT: moist, tongue midline Neck exam: PRESENT: full ROM. ABSENT: carotid bruit, JVD, lymphadenopathy, thyromegaly Respiratory exam: PRESENT: clear to auscultation sandip Cardiovascular exam: PRESENT: RRR. ABSENT: diastolic murmur, rubs, systolic murmur Pulses: PRESENT: normal dorsalis pedis pul, +2 pedal pulses bilateral Vascular exam: PRESENT: normal capillary refill GI/Abdominal exam: PRESENT: normal bowel sounds, soft. ABSENT: distended, guarding, mass, organolmegaly, rebound, tenderness Rectal exam: PRESENT: deferred Neurological exam: PRESENT: alert, awake, oriented to person, oriented to place , oriented to time, oriented to situation. ABSENT: motor sensory deficit Psychiatric exam: PRESENT: appropriate affect, normal mood. ABSENT: homicidal ideation, suicidal ideation Skin exam: PRESENT: dry, intact, warm. ABSENT: cyanosis, rash Results Laboratory Results: 01/07/18 04:40 01/08/18 03:50 Impressions: Acute Abdomen Series 12/24/17 05:16 IMPRESSION: No acute findings. Abdomen X-Ray 12/27/17 00:00 IMPRESSION: There is air and stool in the colon. Nonspecific abdomen. Abdomen/Pelvis CT 12/28/17 00:00 IMPRESSION: Postop colonic ileus or pseudo-obstruction. Knee X-Ray 12/28/17 00:00 IMPRESSION: No fracture or dislocation of the right knee. Joint spaces are well preserved. No knee joint effusion. Osteopenia. Chest X-Ray 01/06/18 00:00 IMPRESSION: Patchy airspace disease right upper lobe, should be followed to radiographic clearing Assessment & Plan - Diagnosis (1) ALS (amyotrophic lateral sclerosis) Is this a current diagnosis for this admission?: Yes Plan: Is currently followed at [facility] (2) Acute appendicitis Qualifiers: Acute appendicitis type: unspecified acute appendicitis type Qualified Code (s): K35.80 - Unspecified acute appendicitis Is this a current diagnosis for this admission?: Yes Plan: Will ask the clinical operations specialist to remove the staple and reexamined the abdomen before the patient's discharge (3) Aortic atherosclerosis Is this a current diagnosis for this admission?: Yes (4) Aspiration pneumonia due to vomitus Qualifiers: Laterality: unspecified laterality Lung location: unspecified part of lung Qualified Code(s): J69.0 - Pneumonitis due to inhalation of food and vomit Is this a current diagnosis for this admission?: Yes Plan: all stable's DC the antibiotic (5) Chronic pain syndrome Is this a current diagnosis for this admission?: Yes (6) HTN (hypertension) Qualifiers: Hypertension type: essential hypertension Qualified Code(s): I10 - Essential (primary) hypertension Is this a current diagnosis for this admission?: Yes (7) Liver cirrhosis Qualifiers: Hepatic cirrhosis type: alcoholic cirrhosis Ascites presence: unspecified Qualified Code(s): K70.30 - Alcoholic cirrhosis of liver without ascites Is this a current diagnosis for this admission?: Yes (8) Anemia Qualifiers: Anemia type: unspecified type Qualified Code(s): D64.9 - Anemia, unspecified Is this a current diagnosis for this admission?: Yes Plan: Currently continues to monitor (9) Stage I decubitus ulcer and pressure area Qualifiers: Pressure injury location: sacral region Qualified Code(s): L89.151 - Pressure ulcer of sacral region, stage 1 Is this a current diagnosis for this admission?: Yes - Plan Summary Plan Summary: Patient is currently waiting for the bed poor prognosis
[2018-01-16] MEDS: POLYETHYLENE GLYCOL 3350 POWDER 17 GM/1 PACKET PO SCH ×2 (09:41→18:40)
[2018-01-16] MEDS: TIOTROPIUM BROMIDE DPI 5 CAP/KIT (18 MCG/CAP) IH SCH (09:42)
[2018-01-16] MEDS: LISINOPRIL 10 MG TABLET PO SCH (09:43)
[2018-01-16] MEDS: FERROUS SULFATE LIQUID 300 MG/5 ML UDC PO SCH (09:44)
[2018-01-16] MEDS: BACLOFEN 10 MG TABLET PO SCH ×2 (09:44→18:39)
[2018-01-16] MEDS: GLYCOPYRROLATE 1 MG TABLET PO SCH ×3 (09:44→18:39)
[2018-01-16] MEDS: FLUTICASONE/SALMETEROL DISKUS 500-50 MCG/DOSE IH SCH ×2 (09:44→21:45)
[2018-01-16] MEDS: AMITRIPTYLINE HCL 50 MG TABLET PO SCH (23:14)
[2018-01-17] MEDS: ALBUTEROL SULFATE 0.083% NEB 2.5 MG/3 ML AMPUL NEB SCH ×4 (02:18→19:28)
[2018-01-17] MEDS: OXYCODONE HCL IR 5 MG TABLET PEG PRN ×4 (05:11→23:54)
[2018-01-17] MEDS: LANSOPRAZOLE 30 MG TAB.RAP.DR PO SCH (05:11)
[2018-01-17] MEDS: FERROUS SULFATE LIQUID 300 MG/5 ML UDC PO SCH (07:59)
--- NOTE | 2018-01-17 09:46 | PDOC PROGRESS REPORT ---
Subjective Progress Note for:: 01/17/18 Subjective:: It is currently doing same Patient with no motivations to move Discussed with the patient to at least sit in the chair Patient's otherwise no other issue According to the nursing stem have issue with some urinary bladder problems will check it again if is still issue will be put the Morales back Reason For Visit: ACUTE APPENDICITIS Physical Exam Vital Signs: Temp Pulse Resp BP Pulse Ox 97.5 F 88 12 117/54 L 95 01/17/18 07:53 01/17/18 07:53 01/17/18 07:53 01/17/18 07:53 01/17/18 07:53 Intake & Output 01/16/18 01/17/18 01/18/18 06:59 06:59 06:59 Intake Total 960 1110 Output Total 1525 Balance 960 -415 Weight 56.8 kg 56.4 kg General appearance: PRESENT: no acute distress, thin Eye exam: PRESENT: PERRLA Mouth exam: PRESENT: neck supple Respiratory exam: PRESENT: clear to auscultation sandip Cardiovascular exam: PRESENT: +S1, +S2 Extremities exam: ABSENT: pedal edema Neurological exam: PRESENT: alert, awake, oriented to person, oriented to place Results Laboratory Results: 01/07/18 04:40 01/08/18 03:50 Impressions: Acute Abdomen Series 12/24/17 05:16 IMPRESSION: No acute findings. Abdomen X-Ray 12/27/17 00:00 IMPRESSION: There is air and stool in the colon. Nonspecific abdomen. Abdomen/Pelvis CT 12/28/17 00:00 IMPRESSION: Postop colonic ileus or pseudo-obstruction. Knee X-Ray 12/28/17 00:00 IMPRESSION: No fracture or dislocation of the right knee. Joint spaces are well preserved. No knee joint effusion. Osteopenia. Chest X-Ray 01/06/18 00:00 IMPRESSION: Patchy airspace disease right upper lobe, should be followed to radiographic clearing Assessment & Plan - Diagnosis (1) ALS (amyotrophic lateral sclerosis) Is this a current diagnosis for this admission?: Yes Plan: Is currently followed at [facility] (2) Acute appendicitis Qualifiers: Acute appendicitis type: unspecified acute appendicitis type Qualified Code (s): K35.80 - Unspecified acute appendicitis Is this a current diagnosis for this admission?: Yes Plan: Will ask the surgical services coordinator to remove the staple and reexamined the abdomen before the patient's discharge (3) Aortic atherosclerosis Is this a current diagnosis for this admission?: Yes (4) Aspiration pneumonia due to vomitus Qualifiers: Laterality: unspecified laterality Lung location: unspecified part of lung Qualified Code(s): J69.0 - Pneumonitis due to inhalation of food and vomit Is this a current diagnosis for this admission?: Yes Plan: all stable's DC the antibiotic (5) Chronic pain syndrome Is this a current diagnosis for this admission?: Yes (6) HTN (hypertension) Qualifiers: Hypertension type: essential hypertension Qualified Code(s): I10 - Essential (primary) hypertension Is this a current diagnosis for this admission?: Yes (7) Liver cirrhosis Qualifiers: Hepatic cirrhosis type: alcoholic cirrhosis Ascites presence: unspecified Qualified Code(s): K70.30 - Alcoholic cirrhosis of liver without ascites Is this a current diagnosis for this admission?: Yes (8) Anemia Qualifiers: Anemia type: unspecified type Qualified Code(s): D64.9 - Anemia, unspecified Is this a current diagnosis for this admission?: Yes Plan: Currently continues to monitor (9) Stage I decubitus ulcer and pressure area Qualifiers: Pressure injury location: sacral region Qualified Code(s): L89.151 - Pressure ulcer of sacral region, stage 1 Is this a current diagnosis for this admission?: Yes - Time Time Spent with patient: 15-24 minutes Medications reviewed and adjusted accordingly: Yes Anticipated discharge: SNF Within: when bed available - Plan Summary Plan Summary: Patient's still very immobile due to the ALS and the generalized weakness physical therapy already try we will waiting for the transfer the patient is to the long-term facilities overall poor prognosis
[2018-01-17] MEDS: FLUTICASONE/SALMETEROL DISKUS 500-50 MCG/DOSE IH SCH ×2 (11:11→22:49)
[2018-01-17] MEDS: BACLOFEN 10 MG TABLET PO SCH ×2 (11:12→17:39)
[2018-01-17] MEDS: LISINOPRIL 10 MG TABLET PO SCH (11:13)
[2018-01-17] MEDS: TIOTROPIUM BROMIDE DPI 5 CAP/KIT (18 MCG/CAP) IH SCH (11:13)
[2018-01-17] MEDS: POLYETHYLENE GLYCOL 3350 POWDER 17 GM/1 PACKET PO SCH ×2 (11:13→17:19)
[2018-01-17] MEDS: GLYCOPYRROLATE 1 MG TABLET PO SCH ×3 (11:14→17:39)
[2018-01-17] MEDS: AMITRIPTYLINE HCL 50 MG TABLET PO SCH (22:49)
[2018-01-18] MEDS: ALBUTEROL SULFATE 0.083% NEB 2.5 MG/3 ML AMPUL NEB SCH ×4 (01:55→20:40)
[2018-01-18] MEDS: LANSOPRAZOLE 30 MG TAB.RAP.DR PO SCH (05:07)
[2018-01-18] MEDS: FERROUS SULFATE LIQUID 300 MG/5 ML UDC PO SCH (08:40)
[2018-01-18] MEDS: OXYCODONE HCL IR 5 MG TABLET PEG PRN ×3 (08:40→21:58)
[2018-01-18] MEDS: FLUTICASONE/SALMETEROL DISKUS 500-50 MCG/DOSE IH SCH ×2 (10:43→21:46)
[2018-01-18] MEDS: TIOTROPIUM BROMIDE DPI 5 CAP/KIT (18 MCG/CAP) IH SCH (10:43)
[2018-01-18] MEDS: LISINOPRIL 10 MG TABLET PO SCH (10:44)
[2018-01-18] MEDS: BACLOFEN 10 MG TABLET PO SCH ×2 (10:44→18:11)
[2018-01-18] MEDS: POLYETHYLENE GLYCOL 3350 POWDER 17 GM/1 PACKET PO SCH ×2 (10:44→18:11)
[2018-01-18] MEDS: GLYCOPYRROLATE 1 MG TABLET PO SCH ×3 (10:46→18:11)
--- NOTE | 2018-01-18 11:30 | PDOC PROGRESS REPORT ---
Subjective Progress Note for:: 01/18/18 Subjective:: It is currently doing same Patient with no motivations to move Discussed with the patient to at least sit in the chair Patient's otherwise no other issue According to the nursing stem have issue with some urinary bladder problems will check it again if is still issue will be put the Morales back Reason For Visit: ACUTE APPENDICITIS Physical Exam Vital Signs: Temp Pulse Resp BP Pulse Ox 98.1 F 88 16 132/53 H 99 01/18/18 08:00 01/18/18 08:00 01/18/18 08:00 01/18/18 08:00 01/18/18 08:00 Intake & Output 01/17/18 01/18/18 01/19/18 06:59 06:59 06:59 Intake Total 1110 570 Output Total 1525 1125 Balance -415 -555 Weight 56.4 kg 56.2 kg General appearance: PRESENT: no acute distress, thin Eye exam: PRESENT: PERRLA Respiratory exam: PRESENT: clear to auscultation sandip Cardiovascular exam: PRESENT: +S1, +S2 Neurological exam: PRESENT: alert, awake, oriented to person, oriented to place Results Laboratory Results: 01/07/18 04:40 01/08/18 03:50 Impressions: Acute Abdomen Series 12/24/17 05:16 IMPRESSION: No acute findings. Abdomen X-Ray 12/27/17 00:00 IMPRESSION: There is air and stool in the colon. Nonspecific abdomen. Abdomen/Pelvis CT 12/28/17 00:00 IMPRESSION: Postop colonic ileus or pseudo-obstruction. Knee X-Ray 12/28/17 00:00 IMPRESSION: No fracture or dislocation of the right knee. Joint spaces are well preserved. No knee joint effusion. Osteopenia. Chest X-Ray 01/06/18 00:00 IMPRESSION: Patchy airspace disease right upper lobe, should be followed to radiographic clearing Assessment & Plan - Diagnosis (1) ALS (amyotrophic lateral sclerosis) Is this a current diagnosis for this admission?: Yes Plan: Is currently followed at [facility] (2) Acute appendicitis Qualifiers: Acute appendicitis type: unspecified acute appendicitis type Qualified Code (s): K35.80 - Unspecified acute appendicitis Is this a current diagnosis for this admission?: Yes Plan: Will ask the surgical forceps fabricator to remove the staple and reexamined the abdomen before the patient's discharge (3) Aortic atherosclerosis Is this a current diagnosis for this admission?: Yes (4) Aspiration pneumonia due to vomitus Qualifiers: Laterality: unspecified laterality Lung location: unspecified part of lung Qualified Code(s): J69.0 - Pneumonitis due to inhalation of food and vomit Is this a current diagnosis for this admission?: Yes Plan: all stable's DC the antibiotic (5) Chronic pain syndrome Is this a current diagnosis for this admission?: Yes (6) HTN (hypertension) Qualifiers: Hypertension type: essential hypertension Qualified Code(s): I10 - Essential (primary) hypertension Is this a current diagnosis for this admission?: Yes (7) Liver cirrhosis Qualifiers: Hepatic cirrhosis type: alcoholic cirrhosis Ascites presence: unspecified Qualified Code(s): K70.30 - Alcoholic cirrhosis of liver without ascites Is this a current diagnosis for this admission?: Yes (8) Anemia Qualifiers: Anemia type: unspecified type Qualified Code(s): D64.9 - Anemia, unspecified Is this a current diagnosis for this admission?: Yes (9) Stage I decubitus ulcer and pressure area Qualifiers: Pressure injury location: sacral region Qualified Code(s): L89.151 - Pressure ulcer of sacral region, stage 1 Is this a current diagnosis for this admission?: Yes - Time Time Spent with patient: 15-24 minutes Medications reviewed and adjusted accordingly: Yes Anticipated discharge: SNF Within: when bed available - Plan Summary Plan Summary: Continues to current medication
[2018-01-18] MEDS ORDERED: OXYCODONE HCL IR 5 MG TABLET ONE (16:03)
[2018-01-18] MEDS: AMITRIPTYLINE HCL 50 MG TABLET PO SCH (21:57)
[2018-01-19] MEDS: ALBUTEROL SULFATE 0.083% NEB 2.5 MG/3 ML AMPUL NEB SCH ×3 (02:05→20:42)
[2018-01-19] MEDS: OXYCODONE HCL IR 5 MG TABLET PEG PRN ×5 (06:32→23:15)
[2018-01-19] MEDS: LANSOPRAZOLE 30 MG TAB.RAP.DR PO SCH (06:32)
--- NOTE | 2018-01-19 08:00 | PDOC PROGRESS REPORT ---
Subjective Progress Note for:: 01/19/18 Subjective:: Patient is currently doing same According to the nursing staff no other concerns Patient is denied any other complaints Patient otherwise still waiting for the to the rehab Reason For Visit: ACUTE APPENDICITIS Physical Exam Vital Signs: Temp Pulse Resp BP Pulse Ox 97.3 F 76 17 108/54 L 98 01/19/18 03:26 01/19/18 07:00 01/19/18 03:26 01/19/18 03:26 01/19/18 03:26 Intake & Output 01/18/18 01/19/18 01/20/18 06:59 06:59 06:59 Intake Total 570 960 Output Total 1125 950 Balance -555 10 Weight 56.2 kg 55.7 kg General appearance: PRESENT: no acute distress, thin Eye exam: PRESENT: PERRLA Mouth exam: PRESENT: neck supple Respiratory exam: PRESENT: clear to auscultation sandip Cardiovascular exam: PRESENT: +S1, +S2 GI/Abdominal exam: PRESENT: normal bowel sounds, soft Extremities exam: ABSENT: pedal edema Neurological exam: PRESENT: alert, awake, oriented to person, oriented to place Skin exam: PRESENT: dry Results Laboratory Results: 01/07/18 04:40 01/08/18 03:50 Impressions: Acute Abdomen Series 12/24/17 05:16 IMPRESSION: No acute findings. Abdomen X-Ray 12/27/17 00:00 IMPRESSION: There is air and stool in the colon. Nonspecific abdomen. Abdomen/Pelvis CT 12/28/17 00:00 IMPRESSION: Postop colonic ileus or pseudo-obstruction. Knee X-Ray 12/28/17 00:00 IMPRESSION: No fracture or dislocation of the right knee. Joint spaces are well preserved. No knee joint effusion. Osteopenia. Chest X-Ray 01/06/18 00:00 IMPRESSION: Patchy airspace disease right upper lobe, should be followed to radiographic clearing Assessment & Plan - Diagnosis (1) ALS (amyotrophic lateral sclerosis) Is this a current diagnosis for this admission?: Yes (2) Acute appendicitis Qualifiers: Acute appendicitis type: unspecified acute appendicitis type Qualified Code (s): K35.80 - Unspecified acute appendicitis Is this a current diagnosis for this admission?: Yes (3) Aortic atherosclerosis Is this a current diagnosis for this admission?: Yes (4) Aspiration pneumonia due to vomitus Qualifiers: Laterality: unspecified laterality Lung location: unspecified part of lung Qualified Code(s): J69.0 - Pneumonitis due to inhalation of food and vomit Is this a current diagnosis for this admission?: Yes (5) Chronic pain syndrome Is this a current diagnosis for this admission?: Yes (6) HTN (hypertension) Qualifiers: Hypertension type: essential hypertension Qualified Code(s): I10 - Essential (primary) hypertension Is this a current diagnosis for this admission?: Yes (7) Liver cirrhosis Qualifiers: Hepatic cirrhosis type: alcoholic cirrhosis Ascites presence: unspecified Qualified Code(s): K70.30 - Alcoholic cirrhosis of liver without ascites Is this a current diagnosis for this admission?: Yes (8) Anemia Qualifiers: Anemia type: unspecified type Qualified Code(s): D64.9 - Anemia, unspecified Is this a current diagnosis for this admission?: Yes (9) Stage I decubitus ulcer and pressure area Qualifiers: Pressure injury location: sacral region Qualified Code(s): L89.151 - Pressure ulcer of sacral region, stage 1 Is this a current diagnosis for this admission?: Yes - Time Time Spent with patient: Less than 15 minutes Medications reviewed and adjusted accordingly: Yes Anticipated discharge: SNF Within: when bed available - Plan Summary Plan Summary: Continues current medication
[2018-01-19] MEDS: FERROUS SULFATE LIQUID 300 MG/5 ML UDC PO SCH (10:33)
[2018-01-19] MEDS: LISINOPRIL 10 MG TABLET PO SCH (10:34)
[2018-01-19] MEDS: BACLOFEN 10 MG TABLET PO SCH ×2 (10:34→17:37)
[2018-01-19] MEDS: POLYETHYLENE GLYCOL 3350 POWDER 17 GM/1 PACKET PO SCH ×2 (10:53→17:35)
[2018-01-19] MEDS: FLUTICASONE/SALMETEROL DISKUS 500-50 MCG/DOSE IH SCH ×2 (10:53→23:16)
[2018-01-19] MEDS: GLYCOPYRROLATE 1 MG TABLET PO SCH ×3 (10:57→17:37)
[2018-01-19] MEDS: TIOTROPIUM BROMIDE DPI 5 CAP/KIT (18 MCG/CAP) IH SCH (10:57)
[2018-01-19] MEDS: AMITRIPTYLINE HCL 50 MG TABLET PO SCH (23:16)
[2018-01-20] MEDS: OXYCODONE HCL IR 5 MG TABLET PEG PRN ×4 (03:22→22:44)
[2018-01-20] MEDS: LANSOPRAZOLE 30 MG TAB.RAP.DR PO SCH (06:16)
[2018-01-20] MEDS: ALBUTEROL SULFATE 0.083% NEB 2.5 MG/3 ML AMPUL NEB SCH ×2 (07:46→19:20)
[2018-01-20] MEDS: GLYCOPYRROLATE 1 MG TABLET PO SCH ×3 (09:27→17:23)
[2018-01-20] MEDS: FERROUS SULFATE LIQUID 300 MG/5 ML UDC PO SCH (09:27)
[2018-01-20] MEDS: LISINOPRIL 10 MG TABLET PO SCH (09:28)
[2018-01-20] MEDS: BACLOFEN 10 MG TABLET PO SCH ×2 (09:28→17:23)
[2018-01-20] MEDS: POLYETHYLENE GLYCOL 3350 POWDER 17 GM/1 PACKET PO SCH ×2 (09:29→17:15)
[2018-01-20] MEDS: TIOTROPIUM BROMIDE DPI 5 CAP/KIT (18 MCG/CAP) IH SCH (09:29)
[2018-01-20] MEDS: FLUTICASONE/SALMETEROL DISKUS 500-50 MCG/DOSE IH SCH ×2 (09:30→22:44)
--- NOTE | 2018-01-20 12:37 | PDOC PROGRESS REPORT ---
Subjective Progress Note for:: 01/20/18 Subjective:: Patient is currently doing same According to the nursing staff no other concerns Patient is denied any other complaints Patient otherwise still waiting for the to the rehab Reason For Visit: ACUTE APPENDICITIS Physical Exam Vital Signs: Temp Pulse Resp BP Pulse Ox 97.8 F 74 16 100/59 L 96 01/20/18 07:22 01/20/18 07:47 01/20/18 07:47 01/20/18 07:22 01/20/18 07:47 Intake & Output 01/19/18 01/20/18 01/21/18 06:59 06:59 06:59 Intake Total 960 960 Output Total 950 700 Balance 10 260 Weight 55.7 kg 55.7 kg General appearance: PRESENT: no acute distress, well-developed, well-nourished Head exam: PRESENT: atraumatic, normocephalic Eye exam: PRESENT: conjunctiva pink, EOMI, PERRLA. ABSENT: scleral icterus Ear exam: PRESENT: normal external ear exam Mouth exam: PRESENT: moist, tongue midline Neck exam: PRESENT: full ROM. ABSENT: carotid bruit, JVD, lymphadenopathy, thyromegaly Respiratory exam: PRESENT: clear to auscultation sandip Cardiovascular exam: PRESENT: RRR. ABSENT: diastolic murmur, rubs, systolic murmur Pulses: PRESENT: normal dorsalis pedis pul, +2 pedal pulses bilateral Vascular exam: PRESENT: normal capillary refill GI/Abdominal exam: PRESENT: normal bowel sounds, soft. ABSENT: distended, guarding, mass, organolmegaly, rebound, tenderness Rectal exam: PRESENT: deferred Neurological exam: PRESENT: alert, awake, oriented to person, oriented to place , oriented to time, oriented to situation, CN II-XII grossly intact. ABSENT: motor sensory deficit Psychiatric exam: PRESENT: appropriate affect, normal mood. ABSENT: homicidal ideation, suicidal ideation Skin exam: PRESENT: dry, intact, warm. ABSENT: cyanosis, rash Results Laboratory Results: 01/07/18 04:40 01/08/18 03:50 Impressions: Acute Abdomen Series 12/24/17 05:16 IMPRESSION: No acute findings. Abdomen X-Ray 12/27/17 00:00 IMPRESSION: There is air and stool in the colon. Nonspecific abdomen. Abdomen/Pelvis CT 12/28/17 00:00 IMPRESSION: Postop colonic ileus or pseudo-obstruction. Knee X-Ray 12/28/17 00:00 IMPRESSION: No fracture or dislocation of the right knee. Joint spaces are well preserved. No knee joint effusion. Osteopenia. Chest X-Ray 01/06/18 00:00 IMPRESSION: Patchy airspace disease right upper lobe, should be followed to radiographic clearing Assessment & Plan - Diagnosis (1) ALS (amyotrophic lateral sclerosis) Is this a current diagnosis for this admission?: Yes (2) Acute appendicitis Qualifiers: Acute appendicitis type: unspecified acute appendicitis type Qualified Code (s): K35.80 - Unspecified acute appendicitis Is this a current diagnosis for this admission?: Yes (3) Aortic atherosclerosis Is this a current diagnosis for this admission?: Yes (4) Aspiration pneumonia due to vomitus Qualifiers: Laterality: unspecified laterality Lung location: unspecified part of lung Qualified Code(s): J69.0 - Pneumonitis due to inhalation of food and vomit Is this a current diagnosis for this admission?: Yes (5) Chronic pain syndrome Is this a current diagnosis for this admission?: Yes (6) HTN (hypertension) Qualifiers: Hypertension type: essential hypertension Qualified Code(s): I10 - Essential (primary) hypertension Is this a current diagnosis for this admission?: Yes (7) Liver cirrhosis Qualifiers: Hepatic cirrhosis type: alcoholic cirrhosis Ascites presence: unspecified Qualified Code(s): K70.30 - Alcoholic cirrhosis of liver without ascites Is this a current diagnosis for this admission?: Yes (8) Anemia Qualifiers: Anemia type: unspecified type Qualified Code(s): D64.9 - Anemia, unspecified Is this a current diagnosis for this admission?: Yes (9) Stage I decubitus ulcer and pressure area Qualifiers: Pressure injury location: sacral region Qualified Code(s): L89.151 - Pressure ulcer of sacral region, stage 1 Is this a current diagnosis for this admission?: Yes - Time Time Spent with patient: 15-24 minutes Medications reviewed and adjusted accordingly: Yes Anticipated discharge: SNF Within: when bed available - Plan Summary Plan Summary: Continues to current medications discussed with the family on the bedside
[2018-01-20] MEDS: AMITRIPTYLINE HCL 50 MG TABLET PO SCH (22:58)
[2018-01-21] MEDS: LANSOPRAZOLE 30 MG TAB.RAP.DR PO SCH (05:10)
[2018-01-21] MEDS: OXYCODONE HCL IR 5 MG TABLET PEG PRN ×4 (05:10→22:33)
[2018-01-21] MEDS: ALBUTEROL SULFATE 0.083% NEB 2.5 MG/3 ML AMPUL NEB SCH ×2 (07:37→19:13)
[2018-01-21] MEDS: FERROUS SULFATE LIQUID 300 MG/5 ML UDC PO SCH (09:23)
[2018-01-21] MEDS: BACLOFEN 10 MG TABLET PO SCH ×2 (09:23→17:30)
[2018-01-21] MEDS: GLYCOPYRROLATE 1 MG TABLET PO SCH ×3 (09:24→17:31)
[2018-01-21] MEDS: ALBUTEROL SULFATE HFA (90 MCG/PUFF) 200 PUFF/8.5 GM MDI IH PRN (09:25)
[2018-01-21] MEDS: TIOTROPIUM BROMIDE DPI 5 CAP/KIT (18 MCG/CAP) IH SCH (09:26)
[2018-01-21] MEDS: FLUTICASONE/SALMETEROL DISKUS 500-50 MCG/DOSE IH SCH ×2 (10:30→22:30)
[2018-01-21] MEDS: POLYETHYLENE GLYCOL 3350 POWDER 17 GM/1 PACKET PO SCH ×2 (10:31→17:32)
[2018-01-21] MEDS: LISINOPRIL 10 MG TABLET PO SCH (10:31)
--- NOTE | 2018-01-21 11:37 | PDOC PROGRESS REPORT ---
Subjective Progress Note for:: 01/21/18 Subjective:: Patient is currently doing same According to the nursing staff no other concerns Patient is denied any other complaints Patient otherwise still waiting for the to the rehab Reason For Visit: ACUTE APPENDICITIS Physical Exam Vital Signs: Temp Pulse Resp BP Pulse Ox 97.5 F 70 16 92/53 L 95 01/21/18 07:37 01/21/18 07:38 01/21/18 07:38 01/21/18 07:37 01/21/18 07:38 Intake & Output 01/20/18 01/21/18 01/22/18 06:59 06:59 06:59 Intake Total 960 980 210 Output Total 700 800 Balance 260 180 210 Weight 55.7 kg 55.7 kg General appearance: PRESENT: no acute distress, well-developed, well-nourished Head exam: PRESENT: atraumatic, normocephalic Eye exam: PRESENT: conjunctiva pink, EOMI, PERRLA. ABSENT: scleral icterus Ear exam: PRESENT: normal external ear exam Mouth exam: PRESENT: moist, tongue midline Neck exam: PRESENT: full ROM. ABSENT: carotid bruit, JVD, lymphadenopathy, thyromegaly Respiratory exam: PRESENT: clear to auscultation sandip Cardiovascular exam: PRESENT: RRR. ABSENT: diastolic murmur, rubs, systolic murmur Pulses: PRESENT: normal dorsalis pedis pul, +2 pedal pulses bilateral Vascular exam: PRESENT: normal capillary refill GI/Abdominal exam: PRESENT: normal bowel sounds, soft. ABSENT: distended, guarding, mass, organolmegaly, rebound, tenderness Rectal exam: PRESENT: deferred Neurological exam: PRESENT: alert, awake, oriented to person, oriented to place , oriented to time, oriented to situation, CN II-XII grossly intact. ABSENT: motor sensory deficit Psychiatric exam: PRESENT: appropriate affect, normal mood. ABSENT: homicidal ideation, suicidal ideation Skin exam: PRESENT: dry, intact, warm. ABSENT: cyanosis, rash Results Laboratory Results: 01/07/18 04:40 01/08/18 03:50 Impressions: Acute Abdomen Series 12/24/17 05:16 IMPRESSION: No acute findings. Abdomen X-Ray 12/27/17 00:00 IMPRESSION: There is air and stool in the colon. Nonspecific abdomen. Abdomen/Pelvis CT 12/28/17 00:00 IMPRESSION: Postop colonic ileus or pseudo-obstruction. Knee X-Ray 12/28/17 00:00 IMPRESSION: No fracture or dislocation of the right knee. Joint spaces are well preserved. No knee joint effusion. Osteopenia. Chest X-Ray 01/06/18 00:00 IMPRESSION: Patchy airspace disease right upper lobe, should be followed to radiographic clearing Assessment & Plan - Diagnosis (1) ALS (amyotrophic lateral sclerosis) Is this a current diagnosis for this admission?: Yes (2) Acute appendicitis Qualifiers: Acute appendicitis type: unspecified acute appendicitis type Qualified Code (s): K35.80 - Unspecified acute appendicitis Is this a current diagnosis for this admission?: Yes (3) Aortic atherosclerosis Is this a current diagnosis for this admission?: Yes (4) Aspiration pneumonia due to vomitus Qualifiers: Laterality: unspecified laterality Lung location: unspecified part of lung Qualified Code(s): J69.0 - Pneumonitis due to inhalation of food and vomit Is this a current diagnosis for this admission?: Yes (5) Chronic pain syndrome Is this a current diagnosis for this admission?: Yes (6) HTN (hypertension) Qualifiers: Hypertension type: essential hypertension Qualified Code(s): I10 - Essential (primary) hypertension Is this a current diagnosis for this admission?: Yes (7) Liver cirrhosis Qualifiers: Hepatic cirrhosis type: alcoholic cirrhosis Ascites presence: unspecified Qualified Code(s): K70.30 - Alcoholic cirrhosis of liver without ascites Is this a current diagnosis for this admission?: Yes (8) Anemia Qualifiers: Anemia type: unspecified type Qualified Code(s): D64.9 - Anemia, unspecified Is this a current diagnosis for this admission?: Yes (9) Stage I decubitus ulcer and pressure area Qualifiers: Pressure injury location: sacral region Qualified Code(s): L89.151 - Pressure ulcer of sacral region, stage 1 Is this a current diagnosis for this admission?: Yes - Time Time Spent with patient: 15-24 minutes Medications reviewed and adjusted accordingly: Yes Anticipated discharge: SNF Within: when bed available - Plan Summary Plan Summary: Continue current medication
[2018-01-21] MEDS: AMITRIPTYLINE HCL 50 MG TABLET PO SCH (22:30)
[2018-01-22] MEDS: LANSOPRAZOLE 30 MG TAB.RAP.DR PO SCH (05:26)
[2018-01-22] MEDS: OXYCODONE HCL IR 5 MG TABLET PEG PRN ×4 (07:11→22:58)
[2018-01-22] MEDS: ALBUTEROL SULFATE 0.083% NEB 2.5 MG/3 ML AMPUL NEB SCH ×2 (08:19→19:46)
--- NOTE | 2018-01-22 08:29 | PDOC PROGRESS REPORT ---
Subjective Progress Note for:: 01/22/18 Subjective:: Patient is currently doing same According to the nursing staff no other concerns Patient is denied any other complaints Patient otherwise still waiting for the to the rehab Reason For Visit: ACUTE APPENDICITIS Physical Exam Vital Signs: Temp Pulse Resp BP Pulse Ox 97.4 F 97 16 95/50 L 93 01/22/18 03:19 01/22/18 07:00 01/22/18 03:19 01/22/18 03:19 01/22/18 03:19 Intake & Output 01/21/18 01/22/18 01/23/18 06:59 06:59 06:59 Intake Total 980 660 Output Total 800 930 Balance 180 -270 Weight 55.7 kg 55.7 kg General appearance: PRESENT: no acute distress Head exam: PRESENT: atraumatic, normocephalic Eye exam: PRESENT: conjunctiva pink, EOMI, PERRLA. ABSENT: scleral icterus Ear exam: PRESENT: normal external ear exam Mouth exam: PRESENT: moist, tongue midline Neck exam: PRESENT: full ROM. ABSENT: carotid bruit, JVD, lymphadenopathy, thyromegaly Respiratory exam: PRESENT: clear to auscultation sandip Cardiovascular exam: PRESENT: RRR. ABSENT: diastolic murmur, rubs, systolic murmur Pulses: PRESENT: normal dorsalis pedis pul, +2 pedal pulses bilateral Vascular exam: PRESENT: normal capillary refill GI/Abdominal exam: PRESENT: normal bowel sounds, soft. ABSENT: distended, guarding, mass, organolmegaly, rebound, tenderness Rectal exam: PRESENT: deferred Neurological exam: PRESENT: alert, awake, oriented to person, oriented to place , oriented to time, oriented to situation. ABSENT: motor sensory deficit Psychiatric exam: PRESENT: appropriate affect, normal mood. ABSENT: homicidal ideation, suicidal ideation Skin exam: PRESENT: dry, intact, warm. ABSENT: cyanosis, rash Results Laboratory Results: 01/07/18 04:40 01/08/18 03:50 Impressions: Acute Abdomen Series 12/24/17 05:16 IMPRESSION: No acute findings. Abdomen X-Ray 12/27/17 00:00 IMPRESSION: There is air and stool in the colon. Nonspecific abdomen. Abdomen/Pelvis CT 12/28/17 00:00 IMPRESSION: Postop colonic ileus or pseudo-obstruction. Knee X-Ray 12/28/17 00:00 IMPRESSION: No fracture or dislocation of the right knee. Joint spaces are well preserved. No knee joint effusion. Osteopenia. Chest X-Ray 01/06/18 00:00 IMPRESSION: Patchy airspace disease right upper lobe, should be followed to radiographic clearing Assessment & Plan - Diagnosis (1) ALS (amyotrophic lateral sclerosis) Is this a current diagnosis for this admission?: Yes (2) Acute appendicitis Qualifiers: Acute appendicitis type: unspecified acute appendicitis type Qualified Code (s): K35.80 - Unspecified acute appendicitis Is this a current diagnosis for this admission?: Yes (3) Aortic atherosclerosis Is this a current diagnosis for this admission?: Yes (4) Aspiration pneumonia due to vomitus Qualifiers: Laterality: unspecified laterality Lung location: unspecified part of lung Qualified Code(s): J69.0 - Pneumonitis due to inhalation of food and vomit Is this a current diagnosis for this admission?: Yes (5) Chronic pain syndrome Is this a current diagnosis for this admission?: Yes (6) HTN (hypertension) Qualifiers: Hypertension type: essential hypertension Qualified Code(s): I10 - Essential (primary) hypertension Is this a current diagnosis for this admission?: Yes (7) Liver cirrhosis Qualifiers: Hepatic cirrhosis type: alcoholic cirrhosis Ascites presence: unspecified Qualified Code(s): K70.30 - Alcoholic cirrhosis of liver without ascites Is this a current diagnosis for this admission?: Yes (8) Anemia Qualifiers: Anemia type: unspecified type Qualified Code(s): D64.9 - Anemia, unspecified Is this a current diagnosis for this admission?: Yes (9) Stage I decubitus ulcer and pressure area Qualifiers: Pressure injury location: sacral region Qualified Code(s): L89.151 - Pressure ulcer of sacral region, stage 1 Is this a current diagnosis for this admission?: Yes - Time Time Spent with patient: Less than 15 minutes Medications reviewed and adjusted accordingly: Yes Anticipated discharge: SNF Within: when bed available - Plan Summary Plan Summary: As per the nursing staff no other concerns we will waiting for the back to transfer the patient to the rehab facility
[2018-01-22] MEDS: POLYETHYLENE GLYCOL 3350 POWDER 17 GM/1 PACKET PO SCH ×2 (09:06→17:25)
[2018-01-22] MEDS: FERROUS SULFATE LIQUID 300 MG/5 ML UDC PO SCH (09:06)
[2018-01-22] MEDS: LISINOPRIL 10 MG TABLET PO SCH (09:06)
[2018-01-22] MEDS: BACLOFEN 10 MG TABLET PO SCH ×2 (09:06→17:24)
[2018-01-22] MEDS: FLUTICASONE/SALMETEROL DISKUS 500-50 MCG/DOSE IH SCH ×2 (09:07→22:58)
[2018-01-22] MEDS: GLYCOPYRROLATE 1 MG TABLET PO SCH ×3 (09:07→17:24)
[2018-01-22] MEDS: TIOTROPIUM BROMIDE DPI 5 CAP/KIT (18 MCG/CAP) IH SCH (09:08)
[2018-01-22] MEDS: AMITRIPTYLINE HCL 50 MG TABLET PO SCH (22:58)
[2018-01-23] MEDS: LANSOPRAZOLE 30 MG TAB.RAP.DR PO SCH (05:42)
[2018-01-23] MEDS: ALBUTEROL SULFATE 0.083% NEB 2.5 MG/3 ML AMPUL NEB SCH ×2 (07:32→21:54)
--- NOTE | 2018-01-23 08:06 | PDOC PROGRESS REPORT ---
Subjective Progress Note for:: 01/23/18 Subjective:: Patient is currently doing same According to the nursing staff no other concerns Patient is denied any other complaints Patient otherwise still waiting for the to the rehab Reason For Visit: ACUTE APPENDICITIS Physical Exam Vital Signs: Temp Pulse Resp BP Pulse Ox 97.6 F 84 12 92/48 L 93 01/23/18 04:06 01/23/18 07:33 01/23/18 07:33 01/23/18 04:06 01/23/18 07:33 Intake & Output 01/22/18 01/23/18 01/24/18 06:59 06:59 06:59 Intake Total 660 1110 Output Total 930 1775 Balance -270 -665 Weight 55.7 kg 55.7 kg General appearance: PRESENT: no acute distress Head exam: PRESENT: atraumatic, normocephalic Eye exam: PRESENT: conjunctiva pink, EOMI, PERRLA. ABSENT: scleral icterus Ear exam: PRESENT: normal external ear exam Mouth exam: PRESENT: moist, tongue midline Neck exam: PRESENT: full ROM. ABSENT: carotid bruit, JVD, lymphadenopathy, thyromegaly Cardiovascular exam: PRESENT: RRR. ABSENT: diastolic murmur, rubs, systolic murmur Pulses: PRESENT: normal dorsalis pedis pul, +2 pedal pulses bilateral Vascular exam: PRESENT: normal capillary refill GI/Abdominal exam: PRESENT: normal bowel sounds, soft. ABSENT: distended, guarding, mass, organolmegaly, rebound, tenderness Rectal exam: PRESENT: deferred Neurological exam: PRESENT: alert, awake, oriented to person, oriented to place , oriented to time, oriented to situation, CN II-XII grossly intact. ABSENT: motor sensory deficit Psychiatric exam: PRESENT: appropriate affect, normal mood. ABSENT: homicidal ideation, suicidal ideation Skin exam: PRESENT: dry, intact, warm. ABSENT: cyanosis, rash Results Laboratory Results: 01/07/18 04:40 01/08/18 03:50 Impressions: Acute Abdomen Series 12/24/17 05:16 IMPRESSION: No acute findings. Abdomen X-Ray 12/27/17 00:00 IMPRESSION: There is air and stool in the colon. Nonspecific abdomen. Abdomen/Pelvis CT 12/28/17 00:00 IMPRESSION: Postop colonic ileus or pseudo-obstruction. Knee X-Ray 12/28/17 00:00 IMPRESSION: No fracture or dislocation of the right knee. Joint spaces are well preserved. No knee joint effusion. Osteopenia. Chest X-Ray 01/06/18 00:00 IMPRESSION: Patchy airspace disease right upper lobe, should be followed to radiographic clearing Assessment & Plan - Diagnosis (1) ALS (amyotrophic lateral sclerosis) Is this a current diagnosis for this admission?: Yes (2) Acute appendicitis Qualifiers: Acute appendicitis type: unspecified acute appendicitis type Qualified Code (s): K35.80 - Unspecified acute appendicitis Is this a current diagnosis for this admission?: Yes (3) Aortic atherosclerosis Is this a current diagnosis for this admission?: Yes (4) Aspiration pneumonia due to vomitus Qualifiers: Laterality: unspecified laterality Lung location: unspecified part of lung Qualified Code(s): J69.0 - Pneumonitis due to inhalation of food and vomit Is this a current diagnosis for this admission?: Yes (5) Chronic pain syndrome Is this a current diagnosis for this admission?: Yes (6) HTN (hypertension) Qualifiers: Hypertension type: essential hypertension Qualified Code(s): I10 - Essential (primary) hypertension Is this a current diagnosis for this admission?: Yes (7) Liver cirrhosis Qualifiers: Hepatic cirrhosis type: alcoholic cirrhosis Ascites presence: unspecified Qualified Code(s): K70.30 - Alcoholic cirrhosis of liver without ascites Is this a current diagnosis for this admission?: Yes (8) Anemia Qualifiers: Anemia type: unspecified type Qualified Code(s): D64.9 - Anemia, unspecified Is this a current diagnosis for this admission?: Yes (9) Stage I decubitus ulcer and pressure area Qualifiers: Pressure injury location: sacral region Qualified Code(s): L89.151 - Pressure ulcer of sacral region, stage 1 Is this a current diagnosis for this admission?: Yes - Time Time Spent with patient: Less than 15 minutes Medications reviewed and adjusted accordingly: Yes Anticipated discharge: SNF Within: when bed available - Plan Summary Plan Summary: Discharge when the bed available
[2018-01-23] MEDS: FERROUS SULFATE LIQUID 300 MG/5 ML UDC PO SCH (09:15)
[2018-01-23] MEDS: BACLOFEN 10 MG TABLET PO SCH ×2 (09:17→17:02)
[2018-01-23] MEDS: GLYCOPYRROLATE 1 MG TABLET PO SCH ×3 (09:17→17:02)
[2018-01-23] MEDS: LISINOPRIL 10 MG TABLET PO SCH ×2 (09:17→09:20)
[2018-01-23] MEDS: POLYETHYLENE GLYCOL 3350 POWDER 17 GM/1 PACKET PO SCH ×2 (09:18→17:02)
[2018-01-23] MEDS: TIOTROPIUM BROMIDE DPI 5 CAP/KIT (18 MCG/CAP) IH SCH (09:18)
[2018-01-23] MEDS: FLUTICASONE/SALMETEROL DISKUS 500-50 MCG/DOSE IH SCH ×2 (09:18→22:00)
[2018-01-23] MEDS: OXYCODONE HCL IR 5 MG TABLET PEG PRN ×2 (14:41→21:59)
[2018-01-23] MEDS: IPRATROPIUM/ALBUTEROL 0.5-2.5 MG/3 ML AMPUL NEB PRN (20:02)
[2018-01-23] MEDS: AMITRIPTYLINE HCL 50 MG TABLET PO SCH (22:00)
[2018-01-24] MEDS: LANSOPRAZOLE 30 MG TAB.RAP.DR PO SCH (05:03)
[2018-01-24] MEDS: ALBUTEROL SULFATE 0.083% NEB 2.5 MG/3 ML AMPUL NEB SCH ×2 (07:43→19:31)
--- NOTE | 2018-01-24 09:07 | PDOC PROGRESS REPORT ---
Subjective Progress Note for:: 01/24/18 Subjective:: Patient is currently doing same According to the nursing staff no other concerns Patient is denied any other complaints Patient otherwise still waiting for the to the rehab Reason For Visit: ACUTE APPENDICITIS Physical Exam Vital Signs: Temp Pulse Resp BP Pulse Ox 97.5 F 79 20 130/57 H 97 01/24/18 07:24 01/24/18 07:24 01/24/18 07:24 01/24/18 07:24 01/24/18 07:24 Intake & Output 01/23/18 01/24/18 01/25/18 06:59 06:59 06:59 Intake Total 1110 1200 240 Output Total 1775 1130 Balance -665 70 240 Weight 55.7 kg 51.6 kg General appearance: PRESENT: no acute distress Head exam: PRESENT: atraumatic, normocephalic Eye exam: PRESENT: conjunctiva pink, EOMI, PERRLA. ABSENT: scleral icterus Ear exam: PRESENT: normal external ear exam Mouth exam: PRESENT: moist, tongue midline Neck exam: PRESENT: full ROM. ABSENT: carotid bruit, JVD, lymphadenopathy, thyromegaly Respiratory exam: PRESENT: clear to auscultation sandip Cardiovascular exam: PRESENT: RRR. ABSENT: diastolic murmur, rubs, systolic murmur Pulses: PRESENT: normal dorsalis pedis pul, +2 pedal pulses bilateral Vascular exam: PRESENT: normal capillary refill GI/Abdominal exam: PRESENT: normal bowel sounds, soft. ABSENT: distended, guarding, mass, organolmegaly, rebound, tenderness Rectal exam: PRESENT: deferred Extremities exam: ABSENT: pedal edema Neurological exam: PRESENT: alert, awake, oriented to person, oriented to place , oriented to time, oriented to situation, CN II-XII grossly intact. ABSENT: motor sensory deficit Psychiatric exam: PRESENT: appropriate affect, normal mood. ABSENT: homicidal ideation, suicidal ideation Skin exam: PRESENT: dry, intact, warm. ABSENT: cyanosis, rash Results Laboratory Results: 01/07/18 04:40 01/08/18 03:50 Impressions: Acute Abdomen Series 12/24/17 05:16 IMPRESSION: No acute findings. Abdomen X-Ray 12/27/17 00:00 IMPRESSION: There is air and stool in the colon. Nonspecific abdomen. Abdomen/Pelvis CT 12/28/17 00:00 IMPRESSION: Postop colonic ileus or pseudo-obstruction. Knee X-Ray 12/28/17 00:00 IMPRESSION: No fracture or dislocation of the right knee. Joint spaces are well preserved. No knee joint effusion. Osteopenia. Chest X-Ray 01/06/18 00:00 IMPRESSION: Patchy airspace disease right upper lobe, should be followed to radiographic clearing Assessment & Plan - Diagnosis (1) ALS (amyotrophic lateral sclerosis) Is this a current diagnosis for this admission?: Yes Plan: Is currently followed at [facility] (2) Acute appendicitis Qualifiers: Acute appendicitis type: unspecified acute appendicitis type Qualified Code (s): K35.80 - Unspecified acute appendicitis Is this a current diagnosis for this admission?: Yes Plan: Will ask the surgical garment assembly supervisor to remove the staple and reexamined the abdomen before the patient's discharge (3) Aortic atherosclerosis Is this a current diagnosis for this admission?: Yes (4) Aspiration pneumonia due to vomitus Qualifiers: Laterality: unspecified laterality Lung location: unspecified part of lung Qualified Code(s): J69.0 - Pneumonitis due to inhalation of food and vomit Is this a current diagnosis for this admission?: Yes (5) Chronic pain syndrome Is this a current diagnosis for this admission?: Yes (6) HTN (hypertension) Qualifiers: Hypertension type: essential hypertension Qualified Code(s): I10 - Essential (primary) hypertension Is this a current diagnosis for this admission?: Yes (7) Liver cirrhosis Qualifiers: Hepatic cirrhosis type: alcoholic cirrhosis Ascites presence: unspecified Qualified Code(s): K70.30 - Alcoholic cirrhosis of liver without ascites Is this a current diagnosis for this admission?: Yes (8) Anemia Qualifiers: Anemia type: unspecified type Qualified Code(s): D64.9 - Anemia, unspecified Is this a current diagnosis for this admission?: Yes (9) Stage I decubitus ulcer and pressure area Qualifiers: Pressure injury location: sacral region Qualified Code(s): L89.151 - Pressure ulcer of sacral region, stage 1 Is this a current diagnosis for this admission?: Yes - Time Time Spent with patient: Less than 15 minutes Medications reviewed and adjusted accordingly: Yes Anticipated discharge: SNF Within: when bed available - Plan Summary Plan Summary: Discussed with the nursing staff no other concern waiting for the transfer the patient is to the bed available
[2018-01-24] MEDS: ALBUTEROL SULFATE HFA (90 MCG/PUFF) 200 PUFF/8.5 GM MDI IH PRN (09:30)
[2018-01-24] MEDS: FERROUS SULFATE LIQUID 300 MG/5 ML UDC PO SCH (09:31)
[2018-01-24] MEDS: BACLOFEN 10 MG TABLET PO SCH ×2 (09:32→17:23)
[2018-01-24] MEDS: LISINOPRIL 10 MG TABLET PO SCH (09:32)
[2018-01-24] MEDS: GLYCOPYRROLATE 1 MG TABLET PO SCH ×3 (09:32→17:23)
[2018-01-24] MEDS: OXYCODONE HCL IR 5 MG TABLET PEG PRN ×3 (09:32→20:34)
[2018-01-24] MEDS: TIOTROPIUM BROMIDE DPI 5 CAP/KIT (18 MCG/CAP) IH SCH (09:44)
[2018-01-24] MEDS: FLUTICASONE/SALMETEROL DISKUS 500-50 MCG/DOSE IH SCH ×2 (09:45→22:14)
[2018-01-24] MEDS: POLYETHYLENE GLYCOL 3350 POWDER 17 GM/1 PACKET PO SCH ×2 (09:45→17:26)
[2018-01-24] MEDS: AMITRIPTYLINE HCL 50 MG TABLET PO SCH (22:16)
[2018-01-25] MEDS: ALBUTEROL SULFATE 0.083% NEB 2.5 MG/3 ML AMPUL NEB SCH ×2 (07:29→19:45)
--- NOTE | 2018-01-25 08:51 | PDOC PROGRESS REPORT ---
Subjective Progress Note for:: 01/25/18 Subjective:: Is currently doing well Patient still waiting for the placement Still issue with the insurance Otherwise no other complaints No other nursing concerns at Reason For Visit: ACUTE APPENDICITIS Physical Exam Vital Signs: Temp Pulse Resp BP Pulse Ox 97.2 F 93 16 129/73 H 98 01/25/18 07:16 01/25/18 07:29 01/25/18 07:29 01/25/18 07:16 01/25/18 07:29 Intake & Output 01/24/18 01/25/18 01/26/18 06:59 06:59 06:59 Intake Total 1200 840 Output Total 1130 950 Balance 70 -110 Weight 51.6 kg 55.4 kg General appearance: PRESENT: no acute distress Head exam: PRESENT: atraumatic, normocephalic Eye exam: PRESENT: conjunctiva pink, EOMI, PERRLA. ABSENT: scleral icterus Ear exam: PRESENT: normal external ear exam Mouth exam: PRESENT: moist, tongue midline Neck exam: PRESENT: full ROM. ABSENT: carotid bruit, JVD, lymphadenopathy, thyromegaly Respiratory exam: PRESENT: clear to auscultation sandip Cardiovascular exam: PRESENT: RRR. ABSENT: diastolic murmur, rubs, systolic murmur Pulses: PRESENT: normal dorsalis pedis pul, +2 pedal pulses bilateral Vascular exam: PRESENT: normal capillary refill GI/Abdominal exam: PRESENT: normal bowel sounds, soft. ABSENT: distended, guarding, mass, organolmegaly, rebound, tenderness Rectal exam: PRESENT: deferred Neurological exam: PRESENT: alert, awake, oriented to person, oriented to place , oriented to time, oriented to situation, CN II-XII grossly intact. ABSENT: motor sensory deficit Psychiatric exam: PRESENT: appropriate affect, normal mood. ABSENT: homicidal ideation, suicidal ideation Skin exam: PRESENT: dry, intact, warm. ABSENT: cyanosis, rash Results Laboratory Results: 01/07/18 04:40 01/08/18 03:50 Impressions: Acute Abdomen Series 12/24/17 05:16 IMPRESSION: No acute findings. Abdomen X-Ray 12/27/17 00:00 IMPRESSION: There is air and stool in the colon. Nonspecific abdomen. Abdomen/Pelvis CT 12/28/17 00:00 IMPRESSION: Postop colonic ileus or pseudo-obstruction. Knee X-Ray 12/28/17 00:00 IMPRESSION: No fracture or dislocation of the right knee. Joint spaces are well preserved. No knee joint effusion. Osteopenia. Chest X-Ray 01/06/18 00:00 IMPRESSION: Patchy airspace disease right upper lobe, should be followed to radiographic clearing Assessment & Plan - Diagnosis (1) ALS (amyotrophic lateral sclerosis) Is this a current diagnosis for this admission?: Yes (2) Acute appendicitis Qualifiers: Acute appendicitis type: unspecified acute appendicitis type Qualified Code (s): K35.80 - Unspecified acute appendicitis Is this a current diagnosis for this admission?: Yes (3) Aortic atherosclerosis Is this a current diagnosis for this admission?: Yes (4) Aspiration pneumonia due to vomitus Qualifiers: Laterality: unspecified laterality Lung location: unspecified part of lung Qualified Code(s): J69.0 - Pneumonitis due to inhalation of food and vomit Is this a current diagnosis for this admission?: Yes (5) Chronic pain syndrome Is this a current diagnosis for this admission?: Yes (6) HTN (hypertension) Qualifiers: Hypertension type: essential hypertension Qualified Code(s): I10 - Essential (primary) hypertension Is this a current diagnosis for this admission?: Yes (7) Liver cirrhosis Qualifiers: Hepatic cirrhosis type: alcoholic cirrhosis Ascites presence: unspecified Qualified Code(s): K70.30 - Alcoholic cirrhosis of liver without ascites Is this a current diagnosis for this admission?: Yes (8) Anemia Qualifiers: Anemia type: unspecified type Qualified Code(s): D64.9 - Anemia, unspecified Is this a current diagnosis for this admission?: Yes (9) Stage I decubitus ulcer and pressure area Qualifiers: Pressure injury location: sacral region Qualified Code(s): L89.151 - Pressure ulcer of sacral region, stage 1 Is this a current diagnosis for this admission?: Yes - Time Time Spent with patient: 15-24 minutes Medications reviewed and adjusted accordingly: Yes Anticipated discharge: SNF Within: when bed available - Plan Summary Plan Summary: Continues to current medication
[2018-01-25] MEDS: BACLOFEN 10 MG TABLET PO SCH ×2 (09:14→17:28)
[2018-01-25] MEDS: FERROUS SULFATE LIQUID 300 MG/5 ML UDC PO SCH (09:14)
[2018-01-25] MEDS: LISINOPRIL 10 MG TABLET PO SCH (09:14)
[2018-01-25] MEDS: GLYCOPYRROLATE 1 MG TABLET PO SCH ×3 (09:14→17:29)
[2018-01-25] MEDS: TIOTROPIUM BROMIDE DPI 5 CAP/KIT (18 MCG/CAP) IH SCH (09:15)
[2018-01-25] MEDS: OXYCODONE HCL IR 5 MG TABLET PEG PRN ×3 (09:15→23:24)
[2018-01-25] MEDS: FLUTICASONE/SALMETEROL DISKUS 500-50 MCG/DOSE IH SCH (09:15)
[2018-01-25] MEDS: POLYETHYLENE GLYCOL 3350 POWDER 17 GM/1 PACKET PO SCH ×2 (09:15→17:28)
[2018-01-26] MEDS: ALBUTEROL SULFATE 0.083% NEB 2.5 MG/3 ML AMPUL NEB SCH ×2 (08:12→19:40)
[2018-01-26] MEDS: POLYETHYLENE GLYCOL 3350 POWDER 17 GM/1 PACKET PO SCH ×3 (09:48→17:15)
[2018-01-26] MEDS: LISINOPRIL 10 MG TABLET PO SCH (09:57)
[2018-01-26] MEDS: OXYCODONE HCL IR 5 MG TABLET PEG PRN ×4 (09:57→23:04)
[2018-01-26] MEDS: FERROUS SULFATE LIQUID 300 MG/5 ML UDC PO SCH (10:00)
--- NOTE | 2018-01-26 12:51 | PDOC PROGRESS REPORT ---
Subjective Progress Note for:: 01/26/18 Subjective:: Is currently doing well Patient still waiting for the placement Still issue with the insurance Otherwise no other complaints No other nursing concerns at Reason For Visit: ACUTE APPENDICITIS Physical Exam Vital Signs: Temp Pulse Resp BP Pulse Ox 97.5 F 86 19 111/56 L 94 01/26/18 11:31 01/26/18 11:31 01/26/18 11:31 01/26/18 11:31 01/26/18 11:31 Intake & Output 01/25/18 01/26/18 01/27/18 06:59 06:59 06:59 Intake Total 840 960 Output Total 950 600 Balance -110 360 Weight 55.4 kg 53.3 kg General appearance: PRESENT: no acute distress Head exam: PRESENT: atraumatic, normocephalic Eye exam: PRESENT: conjunctiva pink, EOMI, PERRLA. ABSENT: scleral icterus Ear exam: PRESENT: normal external ear exam Mouth exam: PRESENT: moist, tongue midline Neck exam: PRESENT: full ROM. ABSENT: carotid bruit, JVD, lymphadenopathy, thyromegaly Respiratory exam: PRESENT: clear to auscultation sandip Cardiovascular exam: PRESENT: RRR. ABSENT: diastolic murmur, rubs, systolic murmur Pulses: PRESENT: normal dorsalis pedis pul, +2 pedal pulses bilateral Vascular exam: PRESENT: normal capillary refill GI/Abdominal exam: PRESENT: normal bowel sounds, soft. ABSENT: distended, guarding, mass, organolmegaly, rebound, tenderness Rectal exam: PRESENT: deferred Neurological exam: PRESENT: alert, awake, oriented to person, oriented to place , oriented to time, oriented to situation. ABSENT: motor sensory deficit Psychiatric exam: PRESENT: appropriate affect, normal mood. ABSENT: homicidal ideation, suicidal ideation Skin exam: PRESENT: dry, intact, warm. ABSENT: cyanosis, rash Results Laboratory Results: 01/07/18 04:40 01/08/18 03:50 Impressions: Acute Abdomen Series 12/24/17 05:16 IMPRESSION: No acute findings. Abdomen X-Ray 12/27/17 00:00 IMPRESSION: There is air and stool in the colon. Nonspecific abdomen. Abdomen/Pelvis CT 12/28/17 00:00 IMPRESSION: Postop colonic ileus or pseudo-obstruction. Knee X-Ray 12/28/17 00:00 IMPRESSION: No fracture or dislocation of the right knee. Joint spaces are well preserved. No knee joint effusion. Osteopenia. Chest X-Ray 01/06/18 00:00 IMPRESSION: Patchy airspace disease right upper lobe, should be followed to radiographic clearing Assessment & Plan - Diagnosis (1) ALS (amyotrophic lateral sclerosis) Is this a current diagnosis for this admission?: Yes Plan: Is currently followed at [facility] (2) Acute appendicitis Qualifiers: Acute appendicitis type: unspecified acute appendicitis type Qualified Code (s): K35.80 - Unspecified acute appendicitis Is this a current diagnosis for this admission?: Yes (3) Aortic atherosclerosis Is this a current diagnosis for this admission?: Yes (4) Aspiration pneumonia due to vomitus Qualifiers: Laterality: unspecified laterality Lung location: unspecified part of lung Qualified Code(s): J69.0 - Pneumonitis due to inhalation of food and vomit Is this a current diagnosis for this admission?: Yes (5) Chronic pain syndrome Is this a current diagnosis for this admission?: Yes (6) HTN (hypertension) Qualifiers: Hypertension type: essential hypertension Qualified Code(s): I10 - Essential (primary) hypertension Is this a current diagnosis for this admission?: Yes (7) Liver cirrhosis Qualifiers: Hepatic cirrhosis type: alcoholic cirrhosis Ascites presence: unspecified Qualified Code(s): K70.30 - Alcoholic cirrhosis of liver without ascites Is this a current diagnosis for this admission?: Yes (8) Anemia Qualifiers: Anemia type: unspecified type Qualified Code(s): D64.9 - Anemia, unspecified Is this a current diagnosis for this admission?: Yes (9) Stage I decubitus ulcer and pressure area Qualifiers: Pressure injury location: sacral region Qualified Code(s): L89.151 - Pressure ulcer of sacral region, stage 1 Is this a current diagnosis for this admission?: Yes Plan: Continues to dressing change - Time Time Spent with patient: Less than 15 minutes Medications reviewed and adjusted accordingly: Yes Anticipated discharge: SNF Within: when bed available - Plan Summary Plan Summary: cont curr med
[2018-01-27] MEDS: OXYCODONE HCL IR 5 MG TABLET PEG PRN ×4 (04:16→22:36)
[2018-01-27] MEDS: ALBUTEROL SULFATE 0.083% NEB 2.5 MG/3 ML AMPUL NEB SCH ×2 (07:43→21:09)
[2018-01-27] MEDS: FERROUS SULFATE LIQUID 300 MG/5 ML UDC PO SCH (09:18)
[2018-01-27] MEDS: LISINOPRIL 10 MG TABLET PO SCH (09:19)
--- NOTE | 2018-01-27 13:06 | PDOC PROGRESS REPORT ---
Subjective Progress Note for:: 01/27/18 Subjective:: Patient is still awaiting SNF placement due to his insurance limitations. He had high gastric residual from his feeding and current off tube feeding. No reported difficulty with breathing. Reason For Visit: ACUTE APPENDICITIS Physical Exam Vital Signs: Temp Pulse Resp BP Pulse Ox 97.5 F 87 16 121/64 978 H 01/27/18 07:32 01/27/18 07:45 01/27/18 07:45 01/27/18 07:32 01/27/18 07:45 Intake & Output 01/26/18 01/27/18 01/28/18 06:59 06:59 06:59 Intake Total 960 960 Output Total 600 1200 Balance 360 -240 Weight 53.3 kg 53.5 kg Physical Exam: General appearance: PRESENT: on nasal cannula supplemental oxygen support, remain minimally verbal in communication Head exam: PRESENT: atraumatic, normocephalic Eye exam: PRESENT: conjunctiva pink. ABSENT: pallor, scleral icterus Respiratory exam: PRESENT: clear to auscultation sandip Cardiovascular exam: PRESENT: RRR. ABSENT: diastolic murmur, rubs, systolic murmur GI/Abdominal exam: PRESENT: normal bowel sounds, firm, PEG and surgical sites okay. ABSENT: guarding, mass, organomegaly, rebound, tenderness Extremities exam: ABSENT: pedal edema Musculoskeletal exam: PRESENT: deformity - due to multiple joints involvement with arthritis Neurological exam: PRESENT: alert, awake - limited in verbal response but made appropriate gestures. Psychiatric exam: ABSENT: agitated, anxious Skin exam: PRESENT: dry, warm, other - surgical instrumentation sites dressings are satisfactory Results Laboratory Results: 01/07/18 04:40 01/08/18 03:50 Impressions: Acute Abdomen Series 12/24/17 05:16 IMPRESSION: No acute findings. Abdomen X-Ray 12/27/17 00:00 IMPRESSION: There is air and stool in the colon. Nonspecific abdomen. Abdomen/Pelvis CT 12/28/17 00:00 IMPRESSION: Postop colonic ileus or pseudo-obstruction. Knee X-Ray 12/28/17 00:00 IMPRESSION: No fracture or dislocation of the right knee. Joint spaces are well preserved. No knee joint effusion. Osteopenia. Chest X-Ray 01/06/18 00:00 IMPRESSION: Patchy airspace disease right upper lobe, should be followed to radiographic clearing Assessment & Plan - Diagnosis (1) ALS (amyotrophic lateral sclerosis) Is this a current diagnosis for this admission?: Yes (2) HTN (hypertension) Qualifiers: Hypertension type: essential hypertension Qualified Code(s): I10 - Essential (primary) hypertension Is this a current diagnosis for this admission?: Yes (3) Asthma with chronic obstructive pulmonary disease (COPD) Is this a current diagnosis for this admission?: Yes (4) Liver cirrhosis Qualifiers: Hepatic cirrhosis type: alcoholic cirrhosis Ascites presence: unspecified Qualified Code(s): K70.30 - Alcoholic cirrhosis of liver without ascites Is this a current diagnosis for this admission?: Yes (5) Chronic pain syndrome Is this a current diagnosis for this admission?: Yes (6) Chronic use of opiate drugs therapeutic purposes Is this a current diagnosis for this admission?: Yes (7) Constipation due to opioid therapy Is this a current diagnosis for this admission?: Yes - Time Time Spent with patient: 25-34 minutes Medications reviewed and adjusted accordingly: Yes Anticipated discharge: SNF Within: Other - Inpatient Certification Based on my medical assessment, after consideration of the patient's comorbidities, presenting symptoms, or acuity I expect that the services needed warrant INPATIENT care.: Yes I certify that my determination is in accordance with my understanding of Medicare's requirements for reasonable and necessary INPATIENT services [42 CFR 412.3e].: Yes Medical Necessity: Need Close Monitoring Due to Risk of Patient Decompensation, Need For Continuous Telemetry Monitoring, Risk of Complication if Not Cared For in Hospital Post Hospital Care: D/C or Transfer Summary - Plan Summary Plan Summary: Continue supportive care and efforts at SNF placement. Maintain on all current medication management.
[2018-01-28] MEDS: OXYCODONE HCL IR 5 MG TABLET PEG PRN ×4 (03:53→18:38)
[2018-01-28] MEDS: ALBUTEROL SULFATE 0.083% NEB 2.5 MG/3 ML AMPUL NEB SCH ×2 (08:37→19:26)
[2018-01-28] MEDS: LISINOPRIL 10 MG TABLET PO SCH (09:03)
[2018-01-28] MEDS: FERROUS SULFATE LIQUID 300 MG/5 ML UDC PO SCH (09:04)
--- NOTE | 2018-01-28 12:44 | PDOC PROGRESS REPORT ---
Subjective Progress Note for:: 01/28/18 Subjective:: Patient is back on tube feeding. No reported difficulty with breathing. Patient is still awaiting SNF placement due to his insurance limitations. Reason For Visit: ACUTE APPENDICITIS Physical Exam Vital Signs: Temp Pulse Resp BP Pulse Ox 97.3 F 79 16 123/59 L 96 01/28/18 07:18 01/28/18 08:37 01/28/18 08:37 01/28/18 07:18 01/28/18 08:37 Intake & Output 01/27/18 01/28/18 01/29/18 06:59 06:59 06:59 Intake Total 960 720 Output Total 1200 500 Balance -240 220 Weight 53.5 kg 52.5 kg Physical Exam: General appearance: PRESENT: on nasal cannula supplemental oxygen support, remain minimally verbal in communication Head exam: PRESENT: atraumatic, normocephalic Eye exam: PRESENT: conjunctiva pink. ABSENT: pallor, scleral icterus Respiratory exam: PRESENT: clear to auscultation sandip Cardiovascular exam: PRESENT: RRR. ABSENT: diastolic murmur, rubs, systolic murmur GI/Abdominal exam: PRESENT: normal bowel sounds, firm, PEG and surgical sites okay. ABSENT: guarding, mass, organomegaly, rebound, tenderness Extremities exam: ABSENT: pedal edema Musculoskeletal exam: PRESENT: deformity - due to multiple joints involvement with arthritis Neurological exam: PRESENT: alert, awake - limited in verbal response but made appropriate gestures. Psychiatric exam: ABSENT: agitated, anxious Skin exam: PRESENT: dry, warm Results Laboratory Results: 01/07/18 04:40 01/08/18 03:50 Impressions: Acute Abdomen Series 12/24/17 05:16 IMPRESSION: No acute findings. Abdomen X-Ray 12/27/17 00:00 IMPRESSION: There is air and stool in the colon. Nonspecific abdomen. Abdomen/Pelvis CT 12/28/17 00:00 IMPRESSION: Postop colonic ileus or pseudo-obstruction. Knee X-Ray 12/28/17 00:00 IMPRESSION: No fracture or dislocation of the right knee. Joint spaces are well preserved. No knee joint effusion. Osteopenia. Chest X-Ray 01/06/18 00:00 IMPRESSION: Patchy airspace disease right upper lobe, should be followed to radiographic clearing Assessment & Plan - Diagnosis (1) ALS (amyotrophic lateral sclerosis) Is this a current diagnosis for this admission?: Yes (2) HTN (hypertension) Qualifiers: Hypertension type: essential hypertension Qualified Code(s): I10 - Essential (primary) hypertension Is this a current diagnosis for this admission?: Yes (3) Asthma with chronic obstructive pulmonary disease (COPD) Is this a current diagnosis for this admission?: Yes (4) Liver cirrhosis Qualifiers: Hepatic cirrhosis type: alcoholic cirrhosis Ascites presence: unspecified Qualified Code(s): K70.30 - Alcoholic cirrhosis of liver without ascites Is this a current diagnosis for this admission?: Yes (5) Chronic pain syndrome Is this a current diagnosis for this admission?: Yes (6) Chronic use of opiate drugs therapeutic purposes Is this a current diagnosis for this admission?: Yes (7) Constipation due to opioid therapy Is this a current diagnosis for this admission?: Yes - Time Time Spent with patient: 25-34 minutes Medications reviewed and adjusted accordingly: Yes Anticipated discharge: SNF Within: Other - Inpatient Certification Based on my medical assessment, after consideration of the patient's comorbidities, presenting symptoms, or acuity I expect that the services needed warrant INPATIENT care.: Yes I certify that my determination is in accordance with my understanding of Medicare's requirements for reasonable and necessary INPATIENT services [42 CFR 412.3e].: Yes Medical Necessity: Need Close Monitoring Due to Risk of Patient Decompensation, Need For IV Fluids, Need For Continuous Telemetry Monitoring, Risk of Complication if Not Cared For in Hospital Post Hospital Care: D/C or Transfer Summary - Plan Summary Plan Summary: Continue current medication management. Follow up on discharge efforts to SNF.
[2018-01-29] MEDS: OXYCODONE HCL IR 5 MG TABLET PEG PRN ×5 (01:21→23:11)
[2018-01-29] MEDS: ALBUTEROL SULFATE 0.083% NEB 2.5 MG/3 ML AMPUL NEB SCH ×2 (07:40→19:53)
[2018-01-29] MEDS: FERROUS SULFATE LIQUID 300 MG/5 ML UDC PO SCH (11:16)
[2018-01-29] MEDS: LISINOPRIL 10 MG TABLET PO SCH (11:17)
--- NOTE | 2018-01-29 12:48 | PDOC PROGRESS REPORT ---
Subjective Progress Note for:: 01/29/18 Subjective:: Is currently doing well Patient still waiting for the placement Still issue with the insurance Otherwise no other complaints No other nursing concerns at Reason For Visit: ACUTE APPENDICITIS Physical Exam Vital Signs: Temp Pulse Resp BP Pulse Ox 97.3 F 87 18 148/69 H 98 01/29/18 11:11 01/29/18 11:11 01/29/18 11:11 01/29/18 11:11 01/29/18 11:11 Intake & Output 01/28/18 01/29/18 01/30/18 06:59 06:59 06:59 Intake Total 720 940 Output Total 500 800 Balance 220 140 Weight 52.5 kg 52.3 kg General appearance: PRESENT: no acute distress Head exam: PRESENT: atraumatic, normocephalic Eye exam: PRESENT: conjunctiva pink, EOMI, PERRLA. ABSENT: scleral icterus Ear exam: PRESENT: normal external ear exam Mouth exam: PRESENT: moist, tongue midline Neck exam: PRESENT: full ROM. ABSENT: carotid bruit, JVD, lymphadenopathy, thyromegaly Respiratory exam: PRESENT: clear to auscultation sandip Cardiovascular exam: PRESENT: RRR. ABSENT: diastolic murmur, rubs, systolic murmur Pulses: PRESENT: normal dorsalis pedis pul, +2 pedal pulses bilateral Vascular exam: PRESENT: normal capillary refill GI/Abdominal exam: PRESENT: normal bowel sounds, soft. ABSENT: distended, guarding, mass, organolmegaly, rebound, tenderness Rectal exam: PRESENT: deferred Neurological exam: PRESENT: alert, awake, oriented to person, oriented to place , oriented to time, oriented to situation. ABSENT: motor sensory deficit Psychiatric exam: PRESENT: appropriate affect, normal mood. ABSENT: homicidal ideation, suicidal ideation Skin exam: PRESENT: dry, intact, warm. ABSENT: cyanosis, rash Results Laboratory Results: 01/07/18 04:40 01/08/18 03:50 Impressions: Acute Abdomen Series 12/24/17 05:16 IMPRESSION: No acute findings. Abdomen X-Ray 12/27/17 00:00 IMPRESSION: There is air and stool in the colon. Nonspecific abdomen. Abdomen/Pelvis CT 12/28/17 00:00 IMPRESSION: Postop colonic ileus or pseudo-obstruction. Knee X-Ray 12/28/17 00:00 IMPRESSION: No fracture or dislocation of the right knee. Joint spaces are well preserved. No knee joint effusion. Osteopenia. Chest X-Ray 01/06/18 00:00 IMPRESSION: Patchy airspace disease right upper lobe, should be followed to radiographic clearing Assessment & Plan - Diagnosis (1) ALS (amyotrophic lateral sclerosis) Is this a current diagnosis for this admission?: Yes (2) Acute appendicitis Qualifiers: Acute appendicitis type: unspecified acute appendicitis type Qualified Code (s): K35.80 - Unspecified acute appendicitis Is this a current diagnosis for this admission?: Yes (3) Aortic atherosclerosis Is this a current diagnosis for this admission?: Yes (4) Aspiration pneumonia due to vomitus Qualifiers: Laterality: unspecified laterality Lung location: unspecified part of lung Qualified Code(s): J69.0 - Pneumonitis due to inhalation of food and vomit Is this a current diagnosis for this admission?: Yes (5) Chronic pain syndrome Is this a current diagnosis for this admission?: Yes (6) HTN (hypertension) Qualifiers: Hypertension type: essential hypertension Qualified Code(s): I10 - Essential (primary) hypertension Is this a current diagnosis for this admission?: Yes (7) Liver cirrhosis Qualifiers: Hepatic cirrhosis type: alcoholic cirrhosis Ascites presence: unspecified Qualified Code(s): K70.30 - Alcoholic cirrhosis of liver without ascites Is this a current diagnosis for this admission?: Yes (8) Anemia Qualifiers: Anemia type: unspecified type Qualified Code(s): D64.9 - Anemia, unspecified Is this a current diagnosis for this admission?: Yes (9) Stage I decubitus ulcer and pressure area Qualifiers: Pressure injury location: sacral region Qualified Code(s): L89.151 - Pressure ulcer of sacral region, stage 1 Is this a current diagnosis for this admission?: Yes - Time Time Spent with patient: Less than 15 minutes Medications reviewed and adjusted accordingly: Yes Anticipated discharge: SNF Within: when bed available - Plan Summary Plan Summary: Continue current medications
[2018-01-30] MEDS: OXYCODONE HCL IR 5 MG TABLET PEG PRN ×4 (05:15→21:30)
[2018-01-30] MEDS: ALBUTEROL SULFATE 0.083% NEB 2.5 MG/3 ML AMPUL NEB SCH ×2 (08:30→20:33)
[2018-01-30] MEDS: FERROUS SULFATE LIQUID 300 MG/5 ML UDC PO SCH (08:58)
[2018-01-30] MEDS: LISINOPRIL 10 MG TABLET PO SCH (09:04)
--- NOTE | 2018-01-30 12:43 | PDOC PROGRESS REPORT ---
Subjective Progress Note for:: 01/30/18 Subjective:: Is currently doing well Patient still waiting for the placement Still issue with the insurance Otherwise no other complaints No other nursing concerns at Reason For Visit: ACUTE APPENDICITIS Physical Exam Vital Signs: Temp Pulse Resp BP Pulse Ox 98.3 F 89 20 131/60 H 97 01/30/18 11:06 01/30/18 11:06 01/30/18 11:06 01/30/18 11:06 01/30/18 11:06 Intake & Output 01/29/18 01/30/18 01/31/18 06:59 06:59 06:59 Intake Total 940 540 Output Total 800 675 Balance 140 -135 Weight 52.3 kg 52.3 kg General appearance: PRESENT: no acute distress Head exam: PRESENT: atraumatic, normocephalic Eye exam: PRESENT: conjunctiva pink, EOMI, PERRLA. ABSENT: scleral icterus Ear exam: PRESENT: normal external ear exam Mouth exam: PRESENT: moist, tongue midline Neck exam: PRESENT: full ROM. ABSENT: carotid bruit, JVD, lymphadenopathy, thyromegaly Respiratory exam: PRESENT: clear to auscultation sandip Cardiovascular exam: PRESENT: RRR. ABSENT: diastolic murmur, rubs, systolic murmur Pulses: PRESENT: normal dorsalis pedis pul, +2 pedal pulses bilateral Vascular exam: PRESENT: normal capillary refill GI/Abdominal exam: PRESENT: normal bowel sounds, soft. ABSENT: distended, guarding, mass, organolmegaly, rebound, tenderness Rectal exam: PRESENT: deferred Extremities exam: ABSENT: pedal edema Neurological exam: PRESENT: alert, awake, oriented to person, oriented to place , oriented to time, oriented to situation, CN II-XII grossly intact. ABSENT: motor sensory deficit Psychiatric exam: PRESENT: appropriate affect, normal mood. ABSENT: homicidal ideation, suicidal ideation Skin exam: PRESENT: dry, intact, warm. ABSENT: cyanosis, rash Results Laboratory Results: 01/07/18 04:40 01/08/18 03:50 Impressions: Acute Abdomen Series 12/24/17 05:16 IMPRESSION: No acute findings. Abdomen X-Ray 12/27/17 00:00 IMPRESSION: There is air and stool in the colon. Nonspecific abdomen. Abdomen/Pelvis CT 12/28/17 00:00 IMPRESSION: Postop colonic ileus or pseudo-obstruction. Knee X-Ray 12/28/17 00:00 IMPRESSION: No fracture or dislocation of the right knee. Joint spaces are well preserved. No knee joint effusion. Osteopenia. Chest X-Ray 01/06/18 00:00 IMPRESSION: Patchy airspace disease right upper lobe, should be followed to radiographic clearing Assessment & Plan - Diagnosis (1) ALS (amyotrophic lateral sclerosis) Is this a current diagnosis for this admission?: Yes (2) Acute appendicitis Qualifiers: Acute appendicitis type: unspecified acute appendicitis type Qualified Code (s): K35.80 - Unspecified acute appendicitis Is this a current diagnosis for this admission?: Yes (3) Aortic atherosclerosis Is this a current diagnosis for this admission?: Yes (4) Aspiration pneumonia due to vomitus Qualifiers: Laterality: unspecified laterality Lung location: unspecified part of lung Qualified Code(s): J69.0 - Pneumonitis due to inhalation of food and vomit Is this a current diagnosis for this admission?: Yes (5) Chronic pain syndrome Is this a current diagnosis for this admission?: Yes (6) HTN (hypertension) Qualifiers: Hypertension type: essential hypertension Qualified Code(s): I10 - Essential (primary) hypertension Is this a current diagnosis for this admission?: Yes (7) Liver cirrhosis Qualifiers: Hepatic cirrhosis type: alcoholic cirrhosis Ascites presence: unspecified Qualified Code(s): K70.30 - Alcoholic cirrhosis of liver without ascites Is this a current diagnosis for this admission?: Yes (8) Anemia Qualifiers: Anemia type: unspecified type Qualified Code(s): D64.9 - Anemia, unspecified Is this a current diagnosis for this admission?: Yes (9) Stage I decubitus ulcer and pressure area Qualifiers: Pressure injury location: sacral region Qualified Code(s): L89.151 - Pressure ulcer of sacral region, stage 1 Is this a current diagnosis for this admission?: Yes - Plan Summary Plan Summary: Continues to current medications
[2018-01-31] MEDS: OXYCODONE HCL IR 5 MG TABLET PEG PRN ×3 (05:00→13:34)
[2018-01-31] MEDS: ALBUTEROL SULFATE 0.083% NEB 2.5 MG/3 ML AMPUL NEB SCH (07:56)
[2018-01-31] MEDS: FERROUS SULFATE LIQUID 300 MG/5 ML UDC PO SCH (09:34)
[2018-01-31] MEDS: LISINOPRIL 10 MG TABLET PO SCH (09:34)
[2018-01-31 12:01] VITALS: BP 139/60
== END 2018-01-31 15:54 | DRG 981 ==
LOC: ER 05:06 → EH 08:13 → INTOOBSV 08:13 → OBSVTOIN 08:13 → 5 13:38
PROVIDERS: ADMIT Surgery; ATTEND Family Medicine
PROC: 0D20XUZ Change Feeding Device in Upper Intestinal Tract, External Approach (ICD-10-PCS; 2017-12-24)
PROC: 0DTJ0ZZ Resection of Appendix, Open Approach (ICD-10-PCS; principal; 2017-12-24 12:00)
PROC: 3E0F73Z Introduction of Anti-inflammatory into Respiratory Tract, Via Natural or Artificial Opening (ICD-10-PCS; 2017-12-25)
PROC: 5A09357 Assistance with Respiratory Ventilation, Less than 24 Consecutive Hours, Continuous Positive Airway Pressure (ICD-10-PCS; 2018-01-02)
DX: G12.21 Amyotrophic lateral sclerosis (principal); J69.0 Pneumonitis due to inhalation of food and vomit; Z43.1 Encounter for attention to gastrostomy; I10 Essential (primary) hypertension; J44.9 Chronic obstructive pulmonary disease, unspecified; K70.30 Alcoholic cirrhosis of liver without ascites; K21.9 Gastro-esophageal reflux disease without esophagitis; L89.151 Pressure ulcer of sacral region, stage 1; D72.829 Elevated white blood cell count, unspecified; G89.4 Chronic pain syndrome; K59.09 Other constipation; K59.03 Drug induced constipation; T40.605A Adverse effect of unspecified narcotics, initial encounter; R62.7 Adult failure to thrive; I70.0 Atherosclerosis of aorta; M13.89 Other specified arthritis, multiple sites; Z88.0 Allergy status to penicillin; Z88.2 Allergy status to sulfonamides; Z87.442 Personal history of urinary calculi; Z74.01 Bed confinement status; Z79.891 Long term (current) use of opiate analgesic
CPT/HCPCS: 00840; 36415; 36600; 71045; 74019; 74022; 74177; 80048; 80053; 82607; 82728; 82746; 82803; 82962; 83540; 83550; 83605; 83690; 83735; 84484; 85025; 85027; 85045; 85610; 85730; 87040; 88304; 93005; 93010; 94640; 94660; 96361; 96374; 96375; 96376; 99285; C9290; G0378; J1885; J1956; J2250; J2270; J2310; J2370; J2405; J3010; J3480; J3490; J7030; J7120; J7620